=== PATIENT | female | born 1965 | race Caucasian/White ===

== ENCOUNTER 2019-10-30 10:45 | Emergency (ER) | payer OTHER, SELFPAY ==
--- NOTE | 2019-10-30 11:05 | ECG_ITS ---
Measurements Intervals [place] Rate: 78 P: 49 MN: 162 QRS: 28 QRSD: 89 T: 69 QT: 376 QTc: 429 Interpretive Statements SINUS RHYTHM NONSPECIFIC ST & T-WAVE ABNORMALITY- LATERAL LEADS BORDERLINE ECG Electronically Signed On 10-30-2019 11:26:32 CDT by Tio Rutledge D.O.
[2019-10-30 11:24] VITALS: BP 128/60; PULSE 73; RESP 14; TEMP 36.1; O2SAT 100
[2019-10-30 11:24] LABS: Basophils Percent Auto 0.4 % (0.2-1.2); Eosinophils Absolute Auto 0.1 K/mm3 (0-0.3); Eosinophils Percent Auto 1.2 % (0-4.4); Hematocrit 38.8 % (37.0-47.0); Hemoglobin 12.9 g/dL (12.0-15.0); Immature Granulocyte Absolute 0.01 K/mm3 (0.00-0.031); Immature Granulocyte Percent A 0.2 % (0-0.5); Lymphocytes Absolute Auto 1.49 K/mm3 (0.9-3.2); Lymphocytes Percent Auto 29.4 % (18.3-44.2); Mean Corpuscular HGB Conc 33.2 g/dl (32-36); Mean Corpuscular Hemoglobin 31.4 pg (26-34); Mean Corpuscular Volume 94.4 fl (80-100); Mean Platelet Volume 9.9 fl (7.4-10.4); Monocytes Absolute Auto 0.4 K/mm3 (0.1-0.6); Monocytes Percent Auto 8.3 % (2.6-8.5); Neutrophils Absolute Auto 3.1 K/mm3 (1.3-6.7); Neutrophils Percent Auto 60.5 % (45.5-73.1); Platelet Count Result 279 k/mm3 (150-375); Red Blood Count 4.11 M/mm3 (4.2-5.4); Red Cell Distribution Width 13.2 % (11.5-14.5); White Blood Count 5.1 K/mm3 (4.5-10.0)
[2019-10-30 11:28] VITALS: O2SAT 100
[2019-10-30 11:29] VITALS: PULSE 70
[2019-10-30 11:39] LABS: D Dimer 0.27 ug/mL (<0.48)
[2019-10-30 11:40] LABS: Alanine Aminotransferase 16 U/L (4-35); Albumin Level 4.2 g/dL (3.5-5.1); Alkaline Phosphatase 66 U/L (38-126); Aspartate Amino Transferase 22 U/L (14-36); Bilirubin,Total 0.7 mg/dL (0.2-1.3); Blood Urea Nitrogen 13 mg/dL (7-17); Calcium 9.3 mg/dL (8.4-10.2); Carbon Dioxide 25 mmol/L (22-30); Chloride 108 mmol/L (98-107); Estimated CRCL calculation 73 ml/min; Estimated Glomerular Filt Rate > 60; Glucose 118 mg/dL (65-105); Lipase 69 U/L (23-300); Sodium 139 mmol/L (137-145)
[2019-10-30 11:43] LABS: Potassium 3.7 mmol/L (3.4-5.0)
--- NOTE | 2019-10-30 11:44 | ED.CHESTPAIN ---
HPI - Chest Pain General Chief Complaint: Chest Pain Stated Complaint: chest pain for several days Time Seen by Provider: 10/30/19 11:04 Source: patient Mode of arrival: ambulatory Limitations: no limitations History of Present Illness HPI narrative: Patient is a 53-year-old female who presents with midsternal chest pain patient notes that the symptoms have been present for 3 days and constant nature patient denies any vomiting diarrhea but does note the discomfort originates in the abdomen radiates up through the chest patient denies similar occurrence in the past does not take anything for her symptoms and has not been seen for this complaint notes at the beginning of the month she had a normal stress test. Patient has had congestion rhinorrhea and drainage but denies sick contacts. MD complaint: chest pain Related Data Allergies Allergy/AdvReac Type Severity Reaction Status Date / Time amoxicillin [From Augmentin] Allergy Unknown Verified 10/30/19 11:29 clavulanic acid Allergy Unknown Verified 10/30/19 11:29 [From Augmentin] naproxen Allergy Hives Verified 10/30/19 11:29 Review of Systems Review of Systems: All systems reviewed & are unremarkable except as noted in HPI and below Exam Narrative: Exam Narrative: GENERAL: Well-appearing, well-nourished, and in no acute distress. HEAD: Normocephalic, atraumatic. EYES: PERRLA and EOMI. ENT: Nares clear, no rhinorrhea or epistaxis. Mucous membranes moist. CHEST: Clear to auscultation. No respiratory distress. No wheezes rales or rhonchi HEART: Regular rate and rhythm. No murmur heard. Normal peripheral pulses. ABDOMEN: Soft, nontender, nondistended. EXTREMITIES: Normal range of motion. No edema. SKIN: Warm, dry, no rash. NEURO: No focal deficits. Alert and oriented x3. PSYCH: Normal mood and affect. Course Consultations Consultation #1: Spoke with cardiology office who will see the patient in clinic in 1 week Date: 10/30/19 Time: 15:02 Vital Signs Vital signs: Vital Signs Temperature 97.0 F L 10/30/19 11:24 Pulse Rate 73 10/30/19 11:24 Respiratory Rate 14 10/30/19 11:24 Blood Pressure 128/60 10/30/19 11:24 Pulse Oximetry 100 10/30/19 11:24 Temperature 98.0 F 10/30/19 13:41 Pulse Rate 72 10/30/19 13:41 Respiratory Rate 20 10/30/19 13:41 Blood Pressure 117/73 10/30/19 13:41 Pulse Oximetry 100 10/30/19 13:41 MDM - Chest Pain MDM Narrative Medical decision making narrative: Patients EKGs and labs are without significant high risk changes. Cardiac risk factors were reviewed. Patient is felt likely to be low risk for ACS and reasonable for further risk stratification testing as an outpatient. Pain was not sudden or maximal in onset without tearing or ripping. quality. No other signs or symptoms to suggest aortic dissection. A low-risk Wells criteria is noted. PE is felt to be unlikely. No pneumonia or URI symptoms were seen on evaluation today. Patient is felt to be reasonable for continued evaluation as an outpatient. Lab Data Result diagrams: 10/30/19 11:15 10/30/19 11:15 Labs: Lab Results 10/30/19 10/30/19 10/30/19 Range/Units 11:15 11:15 11:15 WBC 5.1 (4.5-10.0) K/mm3 RBC 4.11 L (4.2-5.4) M/mm3 Hgb 12.9 (12.0-15.0) g/dL Hct 38.8 (37.0-47.0) % MCV 94.4 (80-100) fl MCH 31.4 (26-34) pg MCHC 33.2 (32-36) g/dl RDW 13.2 (11.5-14.5) % Plt Count 279 (150-375) k/mm3 MPV 9.9 (7.4-10.4) fl Immature Gran % (Auto) 0.2 (0-0.5) % Neut % (Auto) 60.5 (45.5-73.1) % Lymph % (Auto) 29.4 (18.3-44.2) % [place] % (Auto) 8.3 (2.6-8.5) % Eos % (Auto) 1.2 (0-4.4) % Baso % (Auto) 0.4 (0.2-1.2) % Lymph # (Auto) 1.49 (0.9-3.2) K/mm3 [place] # (Auto) 0.4 (0.1-0.6) K/mm3 Eos # (Auto) 0.1 (0-0.3) K/mm3 Baso # (Auto) 0.0 (0.0-0.1) K/mm3 Abs Immat Gran (auto) 0.01 (0.00-0.031) K/mm3 Absolute Neuts (auto) 3.1 (1.3-6
[2019-10-30 11:56] LABS: Troponin I < 0.012 ng/mL (0.000-0.034)
[2019-10-30] MEDS: ASPIRIN 81 MG CHEWABLE TABLET 324 MG PO (12:03)
[2019-10-30] MEDS: BELLADONNA ALK/PHENOB ELIX 10 ML, MAG HYDROX/ALUMINUM HYD/SIMETH 30 ML, LIDOCAINE HCL 2... PO (12:03)
[2019-10-30 12:04] VITALS: BP 125/61; PULSE 81; RESP 19; O2SAT 100
[2019-10-30 13:41] VITALS: BP 117/73; PULSE 72; RESP 20; TEMP 36.7; O2SAT 100
[2019-10-30 14:43] LABS: Troponin I < 0.012 ng/mL (0.000-0.034)
[2019-10-30 15:01] LABS: Add Urine Microscopic? YES; Appearance Urine Clear (Clear); Bilirubin Urine Negative (Negative); Blood Urine Negative (Negative); Color Urine Yellow (Yellow); Glucose Urine UA Negative (Negative); Ketones Urine Negative (Negative); Leukocyte Esterase Ur Negative LEU/UL (Negative); Mucus Urine Rare /lpf; Nitrate Urine Negative (Negative); Protein Urine Negative (Negative); RBC Urine 0-2 /hpf (0-2); Specific Grav Ur 1.017 (1.001-1.035); Squamous Epithelial Cell Urine Occasional /hpf (Few); Urobilinogen Urine Negative mg/dL (<2.0); WBC Urine 0-3 /hpf
[2019-10-30 15:22] VITALS: BP 120/70; PULSE 77; RESP 14; O2SAT 100
== END 2019-10-30 15:23 | disposition home or self-care (01) ==
PROVIDERS: Emergency Medicine Emergency Medical Services; Emergency Provider Family Medicine
DX: R07.9 Chest pain, unspecified (principal); R94.31 Abnormal electrocardiogram [ECG] [EKG]
CPT/HCPCS: 36415; 80053; 81001; 83690; 84484; 85025; 85380; 93005; 96365; 99284; A9270; J0131

== ENCOUNTER 2020-08-25 16:32 | Outpatient (CLI) | payer OTHER, SELFPAY ==
--- NOTE | ~2020-08-25 | XR_ITS ---
XR abdomen/kub 1V DATE: 08/25/2020 17:11 INDICATION: Postprandial abdominal bloating for one to 2 months TECHNIQUE: 2 supine AP views COMPARISON: None FINDINGS: Probable calcified pulmonary granuloma overlying the right lung base and upper abdomen. Multiple calcifications overlying the renal silhouettes, at least 2 on the right and at least one on the left, consistent with bilateral nephrolithiasis, the largest situated over the mid left kidney, m easuring up to approximately 6 mm. The other calcifications are approximately 2 mm. No apparent calci fication overlying the expected position of the ureters other than multiple probable bilateral calcif ied pelvic phleboliths. Associated as are intact. No visceromegaly is evident. There is moderately prominent amount of fecal material throughout the colon but no apparent bowel obs truction. The lung bases appear clear. Heart size appears normal. Mild dextroscoliosis of the thoracolumbar spine. IMPRESSION: Probable bilateral calcified kidney stones Probable calcified pulmonary granuloma, right lower lobe Moderately prominent amount of fecal material in the colon; no bowel obstruction Reviewed, dictated and finalized at [facility]. Reviewed, dictated and finalized at [facility]. [facility] IMPRESSION: Probable bilateral calcified kidney stones Probable calcified pulmonary granuloma, right lower lobe Moderately prominent amount of fecal material in the colon; no bowel obstructio n
== END 2020-08-25 16:33 | disposition home or self-care (01) ==
PROVIDERS: PCP Physician Assistant; Visit Provider Physician Assistant
DX: R14.0 Abdominal distension (gaseous) (principal); N20.0 Calculus of kidney; N28.89 Other specified disorders of kidney and ureter
CPT/HCPCS: 74018

== ENCOUNTER 2020-10-01 09:30 | Outpatient (CLI) | payer OTHER, SELFPAY ==
--- NOTE | ~2020-10-01 | CT_ITS ---
EXAMINATION: CT abdomen pelvis wo con DATE: 10/01/2020 09:57 INDICATION: Abdominal bloating TECHNIQUE: Computed tomography (CT) of the abdomen and pelvis was performed without intravenous contr ast. The dose-length product (DLP) was 227.99 mGy-cm. Automated exposure control and iterative recons truction technique were employed. COMPARISON: None FINDINGS: There is a calcified granuloma of the right lower lobe. The heart size is normal. The liver , spleen, pancreas, gallbladder, and adrenal glands are normal. There are two nonobstructing 3 mm sto ming of the right kidney. Three nonobstructing stones of the left kidney measure up to 8 mm. No stones are identified in the ureters or bladder. There is no hydronephrosis or hydroureter. A mildly enlarg ed left inguinal lymph node measures up to 1.3 cm. There is no free intraperitoneal gas or evidence o f bowel obstruction. The appendix is normal. A moderate volume of colonic stool is present. There is a tiny fat-containing umbilical hernia. IMPRESSION: 1. Constipation. 2. Bilateral nonobstructing nephrolithiasis. 3. Mildly enlarged left inguinal lymph node of unclear significance, possibly reactive. Recommend cli nical correlation. Reviewed, dictated and finalized at [facility]. IMPRESSION: 1. Constipation. 2. Bilateral nonobstructing nephrolithiasis. 3. Mildly enlarged left inguinal lymph node of unclear significance, possibly r eactive. Recommend clinical correlation.
== END 2020-10-01 09:31 | disposition home or self-care (01) ==
LOC: ANHIMG 09:32
PROVIDERS: PCP Physician Assistant; Visit Provider Physician Assistant
DX: R14.0 Abdominal distension (gaseous) (principal); K59.00 Constipation, unspecified; N20.0 Calculus of kidney; R59.1 Generalized enlarged lymph nodes
CPT/HCPCS: 74176

== ENCOUNTER 2020-11-08 08:56 | Outpatient (CLI) | payer OTHER, SELFPAY ==
--- NOTE | ~2020-11-08 | MM_ITS ---
EXAMINATION: MM screening [place] BI w ned HISTORY: Screening TECHNIQUE: Craniocaudal and mediolateral oblique 3-D tomosynthesis images were obtained and synthetic 2-D images were generated. CAD analysis was submitted and interpreted. COMPARISON: No prior mammogram is available for comparison at this institution. BREAST PARENCHYMAL COMPOSITION: The breasts are heterogenously dense, which may obscure small masses FINDINGS: There is no evidence of suspicious mass, calcification, or architectural distortion to sugg est malignancy in either breast. There has been no suspicious interval change. IMPRESSION: 1. No mammographic evidence of malignancy. 2. Recommend routine screening mammography in one year. BI-RADS Category 1: Negative Reviewed, dictated and finalized at [facility].
== END 2020-11-08 08:57 | disposition home or self-care (01) ==
PROVIDERS: PCP Physician Assistant; Visit Provider Obstetrics & Gynecology
DX: Z12.31 Encounter for screening mammogram for malignant neoplasm of breast (principal)
CPT/HCPCS: 77063; 77067

== ENCOUNTER 2021-10-11 17:43 | Emergency (ER) | payer OTHER, SELFPAY ==
--- NOTE | ~2021-10-11 | CT_ITS ---
EXAMINATION: CT cervical spine wo con DATE: 10/11/2021 18:37 INDICATION: On and off Central neck pain for 8 months with numbness of the extremities. TECHNIQUE: Computed tomography (CT) of the cervical spine was performed without intravenous contrast. Automated exposure control and iterative reconstruction technique were employed. The dose-length pro duct was 140.84 mGy-cm. COMPARISON: None FINDINGS: Counting reference: Craniocervical junction. There are 7 cervical type vertebral bodies. Anatomic Variants: None. Alignment: Alignment is anatomic. Craniocervical junction: Craniocervical junction is normal. Osseous structures/fracture: No evidence of a lytic or blastic process in the visualized spine. N o evidence of acute or chronic fracture. Cervical soft tissues: The paraspinal soft tissues planes are maintained. Mild biapical pleural pa renchymal thickening. Small right apical pleural bleb. Degenerative changes: Degenerative disc disease in the lower cervical spine, mild at C4-5 and moderat e at C5-6. No severe central canal or neural foraminal narrowing. IMPRESSION: No acute fracture or traumatic malalignment in the cervical spine. Reviewed, dictated and finalized at [facility].
--- NOTE | ~2021-10-11 | CT_ITS ---
EXAMINATION: CT lumbar spine wo con DATE: 10/11/2021 18:38 INDICATION: On and off Central low back pain for 8 months, with numbness of the extremities. TECHNIQUE: Computed tomography (CT) of the lumbar spine was performed without intravenous contrast. A utomated exposure control and iterative reconstruction technique were employed. The dose-length produ ct was 140.84 mGy-cm. COMPARISON: None FINDINGS: There are 5 nonrib-bearing lumbar-type vertebral bodies. Incidental note of moderate degenerative dis c disease at T11-12. Vertebral body heights are maintained. Normal disc spaces. No significant facet hypertrophy. No severe central canal or neural foraminal narrowing. No fracture or dislocation. No ly tic or blastic lesions. Right lower lobe granuloma. Left nephrolithiasis. IMPRESSION: No acute fracture or traumatic malalignment in the lumbar spine. Reviewed, dictated and finalized at [facility].
[2021-10-11 17:58] VITALS: BP 137/95; PULSE 81; RESP 20; TEMP 36.9; O2SAT 97
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
--- NOTE | 2021-10-11 19:29 | PC.NURSE ---
Pt and spouse refusing to wait in room. Will only wait in lobby
== END 2021-10-11 19:50 | disposition home or self-care (01) ==
PROVIDERS: Emergency Provider Internal Medicine Critical Care Medicine; PCP Physician Assistant
DX: M54.2 Cervicalgia (principal); M54.50 Low back pain, unspecified
CPT/HCPCS: 72125; 72131; 99284

== ENCOUNTER 2022-05-07 13:49 | Outpatient (CLI) | payer OTHER, SELFPAY ==
--- NOTE | 2022-05-07 13:59 | ECG_ITS ---
Measurements Intervals [place] Rate: 57 P: 81 NE: 177 QRS: 86 QRSD: 88 T: 76 QT: 421 QTc: 412 Interpretive Statements SINUS BRADYCARDIA DELAYED PRECORDIAL R/S TRANSITION MINIMAL Q WAVES- INFF/LAT LEADS BORDERLINE ECG COMPARED TO ECG 10/30/2019 10:53:36 SINUS BRADYCARDIA NOW PRESENT Electronically Signed On 05-08-2022 6:43:13 CDT by Tio Rutledge D.O.
== END 2022-05-07 13:50 | disposition home or self-care (01) ==
LOC: CHSCARD 13:54
PROVIDERS: PCP Physician Assistant; Visit Provider Internal Medicine Cardiovascular Disease
DX: R07.9 Chest pain, unspecified (principal)
CPT/HCPCS: 93005

== ENCOUNTER 2022-06-11 10:54 | Outpatient (CLI) | payer OTHER, SELFPAY ==
--- NOTE | 2022-06-11 10:59 | EST_ITS ---
Patient Info Name: Tatiana Baron Age: 56 years : 1965 Gender: Female Ht: 65 in Wt: 125 lbs BSA: 1.61 m2 Exam Date: 06/11/2022 12:43 PM Exam Location: [facility] Patient Status: Outpatient Admit Date: 06/11/2022 Staff Ordering Physician: Tio Rutledge DO Attending Provider: Tio Rutledge DO Exam Type: CA stress test treadmill w NM Summary 1. 1. Negative Marino exercise stress test for ischemic ST changes by ECG criteria. 2. 2. Reduced functional capacity, achieving 8 METs of workload. 3. 3. Appropriate HR response to exercise. 4. 4. Appropriate HR recovery at 1 minute post exercise. 5. 5. Nuclear scan to follow and will be reported separately. Please correlate with it. 6. 6. Patient informed of the above results. Protocol: Marino Stress ECG Details Stage: REST Duration (min): 3 min : 5 sec Speed (mph): 0.0 Grade (%): 0 HR (bpm): 83 SBP (mmHg): 110 DBP (mmHg): 63 METS: --- Stage: REST Duration (min): 3 min : 22 sec Speed (mph): 0.0 Grade (%): 0 HR (bpm): 83 SBP (mmHg): 110 DBP (mmHg): 63 METS: --- Stage: REST Duration (min): 8 min : 28 sec Speed (mph): 0.0 Grade (%): 0 HR (bpm): 87 SBP (mmHg): 110 DBP (mmHg): 63 METS: --- Stage: STAGE 1 Duration (min): 1 min : 0 sec Speed (mph): 1.7 Grade (%): 10 HR (bpm): 95 SBP (mmHg): 110 DBP (mmHg): 63 METS: --- Stage: STAGE 1 Duration (min): 2 min : 0 sec Speed (mph): 1.7 Grade (%): 10 HR (bpm): 103 SBP (mmHg): 110 DBP (mmHg): 63 METS: --- Stage: STAGE 1 Duration (min): 3 min : 0 sec Speed (mph): 1.7 Grade (%): 10 HR (bpm): 103 SBP (mmHg): 151 DBP (mmHg): 76 METS: --- Stage: STAGE 2 Duration (min): 1 min : 0 sec Speed (mph): 2.5 Grade (%): 12 HR (bpm): 118 SBP (mmHg): 151 DBP (mmHg): 76 METS: --- Stage: STAGE 2 Duration (min): 2 min : 0 sec Speed (mph): 2.5 Grade (%): 12 HR (bpm): 127 SBP (mmHg): 151 DBP (mmHg): 76 METS: --- Stage: STAGE 2 Duration (min): 3 min : 0 sec Speed (mph): 2.5 Grade (%): 12 HR (bpm): 137 SBP (mmHg): 190 DBP (mmHg): 88 METS: --- Stage: STAGE 3 Duration (min): 0 min : 30 sec Speed (mph): 3.4 Grade (%): 14 HR (bpm): 137 SBP (mmHg): 190 DBP (mmHg): 88 METS: --- Stage: RECOVERY Duration (min): 0 min : 29 sec Speed (mph): 0.0 Grade (%): 0 HR (bpm): 132 SBP (mmHg): 190 DBP (mmHg): 88 METS: --- Stage: RECOVERY Duration (min): 1 min : 29 sec Speed (mph): 0.0 Grade (%): 0 HR (bpm): 113 SBP (mmHg): 190 DBP (mmHg): 88 METS: --- Stage: RECOVERY Duration (min): 2 min : 29 sec Speed (mph): 0.0 Grade (%): 0 HR (bpm): 102 SBP (mmHg): 134 DBP (mmHg): 80 METS: --- Stage: [place]
--- NOTE | 2022-06-11 16:33 | WPDCARIOSTRE ---
Nuclear Stress Test INDICATIONS Indications: Chest pain PROCEDURE Procedure Performed: Myocardial Perf Spect-Multi Procedure: Patient underwent a standard Marino exercise tress test and immediately was injected with 30 mCi of cardiolyte. Multiple tomographic images were obtained. These are of good quality. There is evidence of small size, mild intensity apical perfusion defect noted during stress imaging. A separate resting images were obtained after patient was injected with 10.3 mCi of cardiolyte. Multiple tomographic images were obtained. These are of good quality. There is evidence of small size, mild intensity apical perfusion defect noted during rest imaging. CONCLUSION Conclusion: 1. Myocardial perfusion imaging demonstrating a fixed small size, mild intensity apical perfusion defect suggestive of artifact. 2. No evidence of reversible ischemia. 3. Left ventriculogram demonstrates normal measured ejection fraction of 57% with no wall motion abnormalities. 4. TID score is normal at 0.93.
== END 2022-06-11 10:55 | disposition home or self-care (01) ==
LOC: CHSIMG 10:55
PROVIDERS: PCP Nurse Practitioner; Visit Provider Internal Medicine Cardiovascular Disease
DX: R07.9 Chest pain, unspecified (principal)
CPT/HCPCS: 78452; 93017; A9502

== ENCOUNTER 2023-04-30 14:41 | Outpatient (CLI) | payer OTHER, SELFPAY ==
--- NOTE | ~2023-04-30 | MM_ITS ---
EXAMINATION: MM screening [place] BI w ned HISTORY: Screening mammogram TECHNIQUE: Craniocaudal and mediolateral oblique 3-D tomosynthesis images were obtained and synthetic 2-D images were generated. CAD analysis was submitted and interpreted. COMPARISON: 11/2020 bilateral screening mammogram BREAST PARENCHYMAL COMPOSITION: 11/2020 bilateral screening mammogram FINDINGS: There is an approximately 7 mm mass density in the posterior mid to lower outer right breas t. Diagnostic right mammogram and right breast ultrasound examination are recommended. There are some microcalcifications in upper outer quadrant of the left breast; magnification views ar e recommended for better definition. IMPRESSION: 1. Approximately 7 cm right breast mass and upper outer quadrant left breast microcalcifications 2. Diagnostic right mammogram and right breast ultrasound examination and diagnostic left mammogram w ith magnification views are recommended BI-RADS Category 0: Incomplete: Needs additional imaging evaluation. Reviewed, dictated and finalized at location [facility]. IMPRESSION: 1. Approximately 7 cm right breast mass and upper outer quadrant left breast mi crocalcifications 2. Diagnostic right mammogram and right breast ultrasound examination and diagn ostic left mammogram with magnification views are recommended BI-RADS Category 0: Incomplete: Needs additional imaging evaluation.
== END 2023-04-30 14:42 | disposition home or self-care (01) ==
LOC: CHSIMG 14:42
PROVIDERS: PCP Nurse Practitioner; Visit Provider Nurse Practitioner
DX: Z12.31 Encounter for screening mammogram for malignant neoplasm of breast (principal); R92.8 Other abnormal and inconclusive findings on diagnostic imaging of breast
CPT/HCPCS: 77063; 77067

== ENCOUNTER 2023-05-28 09:07 | Outpatient (CLI) | payer OTHER, SELFPAY ==
--- NOTE | ~2023-05-28 | MMUS_ITS ---
EXAMINATION: MM diagnostic [place] BI w ned, US breast BI complete HISTORY: Approximately 7 mm mass in posterior mid to lower outer right breast and left upper outer qu adrant microcalcifications reported on 04/26/2023 bilateral screening mammogram TECHNIQUE: Additional 3-D tomosynthesis images of both breasts were performed and synthetic 2-D image s were generated. Magnification views of left breast. CAD analysis was submitted and interpreted. Hig h resolution complete bilateral breast ultrasound examination including all 4 quadrants and subareola r area of each breast was performed. COMPARISON: 04/26/2023 bilateral screening mammogram FINDINGS: MAMMOGRAPHIC FINDINGS: There are bilateral benign-appearing microcalcifications. No malignant calcification is evident. Approximately 6-7 mm circumscribed opacity is again suggested in the posterior lower outer right ed[address] st (right MLO Tomosynthesis image /37). The heterogeneously dense stroma of both breasts may obscure other masses. Bilateral complete breast ultrasound examination was performed. ULTRASOUND: No suspicious mass or shadowing of either breast is detected. Right breast: 12:00 2 cm from nipple: 4 x 2.9 mm cyst, benign 6:00 4 cm from nipple: Oval parallel circumscribed 5.4 x 5 x 3.2 mm sonolucency with through transmis malinda posterior enhancement, consistent with simple cyst 7:00 5 cm from nipple: Parallel circumscribed minimally septated 5.6 x 6.9 x 4.6 mm sonolucency with through transmission posterior enhancement, consistent with benign cyst Subareolar: Oval parallel circumscribed hypoechoic complicated cyst measuring 4 x 3 mm, with through transmission, no internal vascularity, benign in appearance Subareolar: 3.6 x 4.7 x 1.9 mm parallel oval circumscribed sonolucency consistent with benign cyst Left breast: 5:00 7 cm from nipple: 4.4 x 2.8 mm parallel circumscribed sonolucency consistent with simple cyst IMPRESSION: 1. Benign mammographic and sonographic findings of both breasts 2. Routine annual mammographic screening is recommended. BI-RADS Category 2: Benign finding(s). Reviewed, dictated and finalized at location [facility]. [employer] IMPRESSION: 1. Benign mammographic and sonographic findings of both breasts 2. Routine annual mammographic screening is recommended. BI-RADS Category 2: Benign finding(s).
== END 2023-05-28 09:08 | disposition home or self-care (01) ==
PROVIDERS: PCP Nurse Practitioner; Visit Provider Nurse Practitioner
DX: N63.15 Unspecified lump in the right breast, overlapping quadrants (principal)
CPT/HCPCS: 76641; 77062; 77066; G0279

== ENCOUNTER 2023-09-26 10:32 | Outpatient (CLI) | payer OTHER, SELFPAY ==
--- NOTE | ~2023-09-26 | CT_ITS ---
Non-contrast CT scan of the Abdomen and Pelvis Clinical indication: Abdominal pain Technique: 2.5 mm axial scans were obtained through the abdomen and pelvis without intravenous or or al contrast. Dose reduction technique was used on this scan by utilizing automated exposure control a nd iterative reconstruction technique. The dose-length product (DLP) was 190.84 mGy-cm. Findings: Images through the lung bases reveal no abnormalities. Nonobstructing bilateral renal calculi, are essentially stable from prior exam. No hydronephrosis.. The liver, spleen, pancreas, gallbladder, and right adrenal gland appear normal. Probable 1.3 cm left adrenal nodule, unchanged. There is no aortic aneurysm. There is no evidence of bowel obstruction. Images through the pelvis were performed. There is no evidence of ascites or lymphadenopathy. Probabl e partially exophytic uterine fibroid is unchanged. No other adnexal mass seen. Impression: Bilateral nonobstructing nephrolithiasis, similar to prior exam. Stable left adrenal nodule, therefore likely benign. Reviewed, dictated and finalized at [facility]. Impression: Bilateral nonobstructing nephrolithiasis, similar to prior exam. Stable left adrenal nodule, therefore likely benign.
--- NOTE | ~2023-09-26 | CT_ITS ---
CT Scan of the Chest without Contrast: Clinical Indication: Lung cancer screening, personal history of nicotine dependence Technique: Contiguous sections were acquired throughout the chest without intravenous contrast. Dose reduction technique was used on this scan by utilizing automated exposure control and iterative recon struction technique. The dose-length product (DLP) was 56.66 mGy-cm. Findings: There is no evidence of any significant mediastinal, hilar or axillary lymphadenopathy. The mediastin al soft tissues appear normal. There is no evidence of pleural or pericardial effusion. The lungs are clear, aside from calcified granulomas. Images through the upper abdomen reveal no abnormalities. Impression: Lung RADS 1: Negative. 12 month follow-up screening CT advised. Reviewed, dictated and finalized at location . Impression: Lung RADS 1: Negative. 12 month follow-up screening CT advised.
== END 2023-09-26 10:33 | disposition home or self-care (01) ==
LOC: CHSIMG 10:33
PROVIDERS: PCP Nurse Practitioner; Visit Provider Nurse Practitioner
DX: Z12.2 Encounter for screening for malignant neoplasm of respiratory organs (principal); R10.9 Unspecified abdominal pain; Z87.891 Personal history of nicotine dependence; N20.0 Calculus of kidney; E27.8 Other specified disorders of adrenal gland
CPT/HCPCS: 71271; 74176

== ENCOUNTER 2023-12-16 11:51 | Emergency (ER) | payer OTHER, SELFPAY ==
--- NOTE | ~2023-12-16 | US_ITS ---
EXAMINATION: US venous doppler LE RT DATE: 12/16/2023 13:00 INDICATION: Right lower limb pain TECHNIQUE: Grayscale ultrasound images without and with compression and Doppler ultrasound images of the right lower extremity veins were obtained. COMPARISON: None. FINDINGS: The visualized portions of right common femoral vein, profunda (deep) femoral vein, femoral vein, pop liteal vein, posterior tibial veins, peroneal veins, gastrocnemius vein and greater saphenous vein ou tflow are patent. IMPRESSION: 1. No deep venous thrombosis in the right lower limb. Reviewed, dictated and finalized at location A.
[2023-12-16 11:51] VITALS: BP 144/71; PULSE 78; RESP 18; TEMP 36.4; O2SAT 99
--- NOTE | 2023-12-16 12:05 | ED.GENADULT ---
HPI - General Adult General Chief complaint: Extremity Problem,Nontraumatic Stated complaint: rt calf pain Time Seen by Provider: 12/16/23 12:05 History of chief complaint: Inform it is patient. Patient reports about a month ago she slipped on a boat dock and bruised her right calf. There is a bit of a knot in the calf area, she was concerned about a blood clot so she contacted primary care and was told to come to the ER to get it checked. She denies any other injury. She did not hit her head. She denies any neck or back pain. She denies any chest pain or shortness of breath. Patient denies any prior issues with DVT or PE. Problem located right calf. Started about a month ago. It is like a contusion, question the possibility of DVT. Caused by a fall. Associated symptoms: No reported cough or fever. Past medical history: High cholesterol, chronic hip pain secondary to degenerative changes past surgical history: Uterine ablation, , tubal ligation, wrist social history: Nonsmoker. Occasional alcohol. Reports uses marijuana daily but uses no other street drugs. Family history: Positive for heart disease, cancer, hypertension. History of Present Illness HPI narrative: As per previously discussed MSE. Related Data Home Medications Medication Instructions Recorded Confirmed estradiol 1 mg tablet 1 mg PO DAILY 10/11/21 12/16/23 gabapentin 300 mg capsule 300 mg PO TID 10/11/21 12/16/23 progesterone micronized 100 mg 100 mg PO DAILY 10/11/21 12/16/23 capsule citalopram 40 mg tablet 40 mg PO DAILY 12/16/23 12/16/23 Allergies Allergy/AdvReac Type Severity Reaction Status Date / Time amoxicillin [From Augmentin] Allergy Hives Verified 12/16/23 12:26 azithromycin [From Zithromax] Allergy Hives Verified 12/16/23 12:26 clavulanic acid Allergy Hives Verified 12/16/23 12:26 [From Augmentin] naproxen Allergy Hives Verified 12/16/23 12:26 Review of Systems Review of Systems: REVIEW OF SYSTEMS- constitutional: No fevers, no chills, no sweats eye: No recent visual problems ENT: No ear pain, no nasal congestion, no sore throat respiratory: No shortness of breath, no cough cardiovascular: No chest pain, no palpitations, no syncope gastrointestinal: No nausea, no vomiting, no diarrhea haroldo/lymph: No bruising tendency, no swollen lymph glands endocrine: No excessive thirst, no excessive hunger muscle skeletal: No back pain, no neck pain, no joint pain, no muscle pain, no decreased range of motion, Complains of not to the right mid calf as discussed in history of chief complaint. integumentary: No rash, no pruritus, no abrasions neurologic: Alert and oriented x4 psychiatric: No anxiety, no depression PMFSH Social History Social History (Updated 05/07/22 @ 13:24 by Latosha Mars, [facility]) Social History: smokes marijuana on a regular basis Smoking status: Former smoker Substance use: current Substance use type: marijuana Exam Narrative: Physical exam: General- alert and oriented, well nourished, no acute distress eye: PERRL, EOMI, normal conjunctiva HENT: Normocephalic, clear tympanic membranes, normal hearing, normal oral mucosa, no scleral icterus, no sinus tenderness neck: Supple, nontender, no carotid bruits, no JVD, no lymphadenopathy lungs: Clear to auscultation, respirations are nonlabored heart: Normal rate, regular rhythm, no murmur, no gallop, no edema abdomen: Soft, nontender, nondistended, normal bowel sounds, no masses muscle skeletal: Normal range of motion and strength, no tenderness, Patient has a small knot in the right mid calf approximately 1 cm across/there is no redness/ pointing/indication of abscess Lymphangitis. The right and left calf have about the same amount of firmness on palpation. neurovascular status is intact in both feet. skin: Skin is warm/ dry/ pink. no rashes, no lesions Neurologic: Awake,
[2023-12-16 13:19] LABS: Basophils Absolute Auto 0.04 K/mm3 (0.00-0.10); Basophils Percent Auto 0.7 % (0.0-1.0); Eosinophils Absolute Auto 0.11 K/mm3 (0.02-0.50); Eosinophils Percent Auto 1.9 % (1.0-6.0); Hematocrit 39.2 % (35.0-49.0); Hemoglobin 12.9 g/dL (12.0-15.0); Immature Granulocyte Absolute 0.02 K/mm3 (0.00-0.00); Immature Granulocyte Percent A 0.3 % (0.0-0.0); Lymphocytes Absolute Auto 2.58 K/mm3 (1.10-4.50); Lymphocytes Percent Auto 44.8 % (18.0-42.0); Mean Corpuscular HGB Conc 32.9 g/dL (32-36); Mean Corpuscular Volume 97.3 fL (78.0-102.0); Mean Platelet Volume 9.4 fl (9.2-11.8); Monocytes Percent Auto 8.7 % (2.0-11.0); Neutrophils Absolute Auto 2.51 K/mm3 (1.70-7.20); Neutrophils Percent Auto 43.6 % (50.0-70.0); Platelet Count Result 215 K/mm3 (150-420); Red Blood Count 4.03 M/mm3 (4.20-5.40); Red Cell Distribution Width 12.5 % (11.6-14.4); White Blood Count 5.8 K/mm3 (4.8-10.8)
[2023-12-16 13:32] LABS: D Dimer 0.32 mg/L (0.19-0.50)
[2023-12-16 13:33] LABS: Alanine Aminotransferase 27 U/L (14-59); Albumin Level 3.5 g/dL (3.4-5.0); Alkaline Phosphatase 59 U/L (46-116); Anion Gap 6 mmol/L (4-12); Aspartate Amino Transferase 17 U/L (15-37); Bilirubin,Total 0.8 mg/dL (0.00-1.00); Blood Urea Nitrogen 13 mg/dL (7-18); Calcium 9.1 mg/dL (8.5-10.1); Carbon Dioxide 32 mmol/L (21-32); Chloride 102 mmol/L (98-108); Estimated CRCL calculation 56 ml/min; Estimated Glomerular Filt Rate > 60; Glucose 105 mg/dL (70-99); Osmolality Calculated 290 mOsm/kg (285-295); Potassium 4.8 mmol/L (3.5-5.1); Sodium 140 mmol/L (136-145); Total Protein 6.8 g/dL (6.4-8.2)
--- NOTE | 2023-12-16 13:44 | PC.NURSE ---
PT IS SITTING ON STRETCHER WITH DAUGHTER AT BEDSIDE. NAD NOTED. PT DENIES ANY NEEDS OR COMPLAINTS, SODA WAS PROVIDED. PT IS AWAITING RESULTS AT THIS TIME. WILL CONTINUE TO MONITOR.
[2023-12-16 14:25] VITALS: BP 132/70; PULSE 70; RESP 16; O2SAT 98
== END 2023-12-16 14:25 | disposition home or self-care (01) ==
PROVIDERS: Emergency Provider Emergency Medicine; PCP Physician Assistant
DX: S80.11XA Contusion of right lower leg, initial encounter (principal); Z79.899 Other long term (current) drug therapy; W01.0XXA Fall on same level from slipping, tripping and stumbling without subsequent striking against object, initial encounter; Y92.89 Other specified places as the place of occurrence of the external cause
CPT/HCPCS: 36415; 80053; 85025; 85380; 93971; 99284

== ENCOUNTER 2024-02-11 08:50 | Outpatient (RCR) | payer OTHER, SELFPAY ==
--- NOTE | 2024-02-11 10:03 | OPREHPOC ---
Outpatient Therapy Plan of Care This is a Multidisciplinary Plan of Care that may contain components documented by all disciplines (PT, OT, and ST.) PT Problem 1 PT Problem #1 Knowledge Deficit PT Goal 1 Goal The patient will be independent in a home exercise program. Target Visit 4 PT Problem 2 PT Problem #2 Pain PT Goal 1 Goal The patient will report no greater than 3/10 right knee pain with walking and stair negotiation. Target Visit 8 PT Problem 3 PT Problem #3 Impaired Range of Motion PT Goal 1 Goal The patient will demonstrate right knee AROM of 0- 130 degrees without pain elicited to perform squatting and stair negotiation without pain. Target Visit 8 PT Problem 4 PT Problem #4 Impaired Functional Mobil PT Goal 1 Goal 1. The patient will be able to ascend/descend a flight of stairs reciprocally with no right knee pain. 2. The patient will demonstrate 30% or less self perceived disability per the LEFS. Target Visit 8
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
--- NOTE | 2024-03-11 08:56 | PCPTNOTE ---
Patient called & cancelled scheduled appointment 03/10/24 and 03/11/24 due to being sick. -Mavis Julian, PT
== END 2024-05-11 23:59 | disposition home or self-care (01) ==
LOC: CHSPT 08:50
PROVIDERS: Visit Provider Nurse Practitioner Family
DX: S80.01XD Contusion of right knee, subsequent encounter (principal); M25.561 Pain in right knee
CPT/HCPCS: 97014; 97110; 97112; 97140; 97161; 97530; G0283

== ENCOUNTER 2024-04-06 15:00 | Emergency (ER) | payer OTHER, SELFPAY ==
--- NOTE | ~2024-04-06 | XR_ITS ---
XR shoulder LT min 2V Ordering provider: Ananda Snyder DO History: . pain after fall . Comparison: None. FINDINGS: BONES: No acute fracture or dislocation. JOINT SPACES: The acromioclavicular joint is normal. The glenohumeral joint is normal. SOFT TISSUES: Normal. IMPRESSION: No acute osseous abnormality left shoulder. Reviewed, dictated and finalized at location A.
[2024-04-06 15:00] VITALS: BP 101/64; PULSE 80; RESP 18; TEMP 36.9; O2SAT 99
--- NOTE | 2024-04-06 15:11 | ED.GENADULT ---
HPI - General Adult General Chief complaint: Extremity Injury, Upper Stated complaint: left shoulder and arm pain Time Seen by Provider: 04/06/24 15:06 History of Present Illness HPI narrative: Tatiana is a 58F with a PMH of aortic stenosis, HLD, mitral valve prolapse that presented to the ED with pain in her left shoulder. She fell on it while playing soccer with her grandson yesterday. Pain is worse with internal rotation and reaching above her head. No other injuries or concerns. Related Data Home Medications Medication Instructions Recorded Confirmed estradiol 1 mg tablet 1 mg PO DAILY 10/11/21 04/06/24 gabapentin 300 mg capsule 600 mg PO QID 10/11/21 04/06/24 progesterone micronized 100 mg 100 mg PO DAILY 10/11/21 04/06/24 capsule citalopram 40 mg tablet 40 mg PO DAILY 12/16/23 04/06/24 Allergies Allergy/AdvReac Type Severity Reaction Status Date / Time amoxicillin [From Augmentin] Allergy Hives Verified 04/06/24 15:07 azithromycin [From Zithromax] Allergy Hives Verified 04/06/24 15:07 clavulanic acid Allergy Hives Verified 04/06/24 15:07 [From Augmentin] naproxen Allergy Hives Verified 04/06/24 15:07 Review of Systems Review of Systems: All systems reviewed & are unremarkable except as noted in HPI and below PMFSH Social History Social History Social History: smokes marijuana on a regular basis Smoking status: Former smoker Substance use: current Substance use type: marijuana Exam Const: General: cooperative, healthy appearing, comfortable, no acute distress, well developed, alert, awake and Physically active Orientation/consciousness: oriented to person, oriented to place and oriented to time HENMT: Head: normal to inspection, normocephalic and atraumatic Ears: hearing grossly normal bilaterally and external ears normal Face/Nose/Sinus: Normal external nose present Eyes: General: appearance normal, both eyes and all related structures Periorbital: periorbital findings normal Sclera: sclerae normal Pupils: Equal, round and reactive pupils present Neck: Neck: normal visual inspection Chest: Chest palpation & inspection: normal inspection of the chest Resp: Effort & Inspection: normal respiratory effort, able to speak in complete sentences and no respiratory distress Cardio: Jugular venous distension: no JVD Skin: General skin exam: normal color and no rashes or lesions noted Neuro: General: oriented to person, oriented to place and oriented to time Cranial nerves: Yes Equal, round and reactive pupils present Extrem: General: normal to inspection Discharge Plan Discharge Clinical Impression: Acute pain of left shoulder Patient Disposition: Home, Self-Care Condition: Stable Instructions: Shoulder Pain (ED) Prescriptions: New tramadol 50 mg tablet 50 mg PO Q6H PRN (Reason: pain) Qty: 10 0RF No Action estradiol 1 mg tablet 1 mg PO DAILY gabapentin 300 mg capsule 600 mg PO QID progesterone micronized 100 mg capsule 100 mg PO DAILY citalopram 40 mg tablet 40 mg PO DAILY Follow-up/Referrals: Stephani,SANTI Fuller [Primary Care Provider] -
== END 2024-04-06 15:55 | disposition home or self-care (01) ==
PROVIDERS: Emergency Provider Family Medicine; PCP Nurse Practitioner Family
DX: M25.512 Pain in left shoulder (principal); E78.5 Hyperlipidemia, unspecified; Z79.899 Other long term (current) drug therapy; W18.30XA Fall on same level, unspecified, initial encounter; Y93.66 Activity, soccer
CPT/HCPCS: 73030; 99283

== ENCOUNTER 2024-05-27 08:39 | Outpatient (RCR) | payer OTHER, SELFPAY ==
--- NOTE | 2024-05-27 09:10 | OPREHPOC ---
Outpatient Therapy Plan of Care This is a Multidisciplinary Plan of Care that may contain components documented by all disciplines (PT, OT, and ST.) PT Problem 1 PT Problem #1 Knowledge Deficit PT Goal 1 Goal / Goal Update The patient will be independent in a home exercise program. Target Visit 4 Progress Met PT Problem 2 PT Problem #2 Pain PT Goal 1 Goal / Goal Update The patient will report no greater than 3/10 right knee pain with walking and stair negotiation. Target Visit 8 Progress Not Met PT Problem 3 PT Problem #3 Impaired Range of Motion PT Goal 1 Goal / Goal Update The patient will demonstrate right knee AROM of 0- 130 degrees without pain elicited to perform squatting and stair negotiation without pain. Target Visit 8 Progress Met PT Problem 4 PT Problem #4 Impaired Functional Mobil PT Goal 1 Goal / Goal Update 1. The patient will be able to ascend/descend a flight of stairs reciprocally with no right knee pain. met 2. The patient will demonstrate 30% or less self perceived disability per the LEFS. not met Target Visit 8 Progress Partially Met
--- NOTE | 2024-05-27 09:10 | PTOPDC ---
Assessment and note entered by JT File, PT Evaluation Information Assessment Status Discharge Diagnosis S80.01XD ICD-10 Condition Codes (PT) M25.561 Onset 02/04/24 Subjective Information patient reports she has not been to therapy in a while due to her mom being ill. she reports since being away from therapy, her knee has not felt too bad, but she fell and injured the L arm/elbow. she reports she fell and landed on the L arm/elbow first before the rest of her body hit the ground. she reports the L arm is bothering her the most now. she presents to skilled PT with OT orders to evaluate and treat the L arm. Reported Pain Level Pain Score 5: Self Report Pain Score 5: Self Report Assessment PT Clinical Summary mrs. mackay presents to skilled PT for her 8th skilled PT visit for the R knee. she has been away from therapy for 2 months caring for her ill mother. during this time off, she fell and injured her L arm. she now has more arm and knee pain. she presents with an order to have OT evaluate the L arm pain. she has met over 50% of goals for skilled PT as of this date. her rom is normal, strength is normal, and patient ambulates with normal mechanics on level ground and reciprocally up and down steps. she will be DC'd from skilled PT of the R knee today. patient will continue R knee HEP independent at home. Plan of Care PT Services Indicated Yes
== END 2024-05-27 09:31 | disposition home or self-care (01) ==
LOC: CHSPT 08:39
PROVIDERS: Visit Provider Nurse Practitioner Family
DX: S80.01XD Contusion of right knee, subsequent encounter (principal); M25.561 Pain in right knee
CPT/HCPCS: 97530

== ENCOUNTER 2024-06-08 17:07 | Outpatient (RCR) | payer OTHER, SELFPAY ==
--- NOTE | 2024-06-08 15:49 | OTOPEVAL1 ---
Assessment and note entered by Crista Martin OT Evaluation Information Assessment Status Evaluation Diagnosis L arm pain ICD-10 Condition Codes (OT) M62.81 Onset 04/06/2024 Reported Pain Level Pain Score 7: Self Report Assessment OT Clinical Summary The patient is a 58 year old female who was referred to outpatient OT due to pain in L arm. She reports pain started on 04/06/2024 when she fell while playing kickball with her grandson. Her PMH includes but is not limited to carpal tunnel surgery to R UE, depression w/ menopause, mitral valve prolapse. The patient demonstrates severe pain reporting 7 to 10/10 pain at its worse. She reports functional deficits as she is unable to clasp her bra, don shirts, hold steering wheel and perform IADLs due to pain. She demonstrates limited AROM of L shoulder due to pain and has minimal hand weakness due to pain. Therapist to address arm pain and weakness in order to improve function and avoid further injury. Therapist educated patient on sleep positioning, HEP for radial nerve glides, and to maintain joint mobility of surrounding joints of L arm. Plan of Care Interventions Therapeutic Exercise,Manual Therapy,Neuro Re- education,Therapeutic Activities,Hot Pack/Cold Pack,Electrical Stimulation,Sensory Integrative Techn,Self-Care/Home Management,Prosthetic Training,Ultrasound OT Services Indicated Yes Treatment Frequency and 2x/week for 10 visits. Duration These treatments will address the objective and functional deficits as defined above. The patient will be advanced safely and appropriately in order for the patient to progress towards his/her prior level of function. Additional exercises will be introduced and as well as a comprehensive home exercise program upon discharge, if needed, ?to ensure carryover of functional gains achieved in the clinic. This treatment plan has been reviewed and agreement upon by the patient.
--- NOTE | 2024-06-08 15:49 | OPREHPOC ---
Outpatient Therapy Plan of Care This is a Multidisciplinary Plan of Care that may contain components documented by all disciplines (PT, OT, and ST.) OT Problem 1 OT Problem #1 Knowledge Deficit OT Goal 1 Goal / Goal Update The patient will demonstrate 100% knowledge and return demonstration for UE HEP in order to improve pain symptoms. Target Visit 10 OT Problem 2 OT Problem #2 Pain OT Goal 1 Goal / Goal Update The patient will demonstrate <4/10 pain at pain worst per patient report during daily functional tasks needed to avoid UE dysfunction. Target Visit 10 OT Problem 3 OT Problem #3 Impaired Range of Motion OT Goal 1 Goal / Goal Update The patient will demonstrate WNL AROM of L shoulder with reports of 0/10 pain needed to maintain joint mobility and UE strength for independence during ADLs. OT Problem 4 OT Problem #4 Impaired Strength OT Goal 1 Goal / Goal Update The patient will demonstrate increased strength of L horse breaker strength as >60 lbs needed to maintain strength for ADLs. Target Visit 10
--- NOTE | 2024-07-24 12:01 | OTOPDC ---
Assessment and note entered by Crista Martin OT Evaluation Information Assessment Status Discharge Diagnosis L arm pain ICD-10 Condition Codes (OT) Generalized muscle weakness M62.81 Reported Pain Level Pain Score 4: Self Report Assessment OT Clinical Summary The patient demonstrates significant progress in chute boss strength, shoulder AROM and understanding of UE HEP which have increased patient's success with ADLs involving chute boss and overhead reaching. The patient continues to demonstrate severe pain in L shoulder during scaption with internal rotation, internal rotation, and horizontal adduction which could be signs of internal shoulder impingement. During therapy POC, therapist engaged patient in manual techniques including shoulder mobilizations , stretches, exercises, and electrical stimulation treatment to address pain and increase strength. The patient demonstrates improvement in ROM and chute boss strength with continued L shoulder pain affecting her ADLs and IADLs. The patient has been educated on postural awareness in general and during lifting activities to avoid strain on shoulder, educated on stretches and resistance band exercises to continue at home in order to maintain mobility of shoulder. The patient demonstrates understanding of POC and is to consult with MD to determine further treatment for L shoulder pain. The patient continues to have pain following 6 weeks of OT and is to refer to physician for further management. The patient is discharged this date. Plan of Care OT Services Indicated No
--- NOTE | 2024-07-24 12:01 | OPREHPOC ---
Outpatient Therapy Plan of Care This is a Multidisciplinary Plan of Care that may contain components documented by all disciplines (PT, OT, and ST.) OT Problem 1 OT Problem #1 Knowledge Deficit OT Goal 1 Goal / Goal Update The patient will demonstrate 100% knowledge and return demonstration for UE HEP in order to improve pain symptoms. GOAL MET Target Visit 10 Progress Met OT Problem 2 OT Problem #2 Pain OT Goal 1 Goal / Goal Update The patient will demonstrate <4/10 pain at pain worst per patient report during daily functional tasks needed to avoid UE dysfunction. NOT MET; between 5-9/10 pain Target Visit 10 Progress Not Met OT Problem 3 OT Problem #3 Impaired Range of Motion OT Goal 1 Goal / Goal Update The patient will demonstrate WNL AROM of L shoulder with reports of 0/10 pain needed to maintain joint mobility and UE strength for independence during ADLs. GOAL MET; minimal pain continued during movements but decreased from severe pain and demonstrates full AROM Progress Partially Met OT Problem 4 OT Problem #4 Impaired Strength OT Goal 1 Goal / Goal Update The patient will demonstrate increased strength of L narrow fabric calenderer strength as >60 lbs needed to maintain strength for ADLs. Records Tech strength: 57 lbs Target Visit 10 Progress Partially Met
--- NOTE | 2024-07-24 12:01 | OTOPDC ---
Assessment and note entered by Crista Martin OT Evaluation Information Assessment Status Discharge Diagnosis L arm pain ICD-10 Condition Codes (OT) Generalized muscle weakness M62.81 Reported Pain Level Pain Score 4: Self Report Assessment OT Clinical Summary The patient demonstrates significant progress in anthropometrist strength, shoulder AROM and understanding of UE HEP which have increased patient's success with ADLs involving anthropometrist and overhead reaching. The patient continues to demonstrate severe pain in L shoulder during scaption with internal rotation, internal rotation, and horizontal adduction which could be signs of internal shoulder impingement. During therapy POC, therapist engaged patient in manual techniques including shoulder mobilizations , stretches, exercises, and electrical stimulation treatment to address pain and increase strength. The patient demonstrates improvement in ROM and anthropometrist strength with continued L shoulder pain affecting her ADLs and IADLs. The patient has been educated on postural awareness in general and during lifting activities to avoid strain on shoulder, educated on stretches and resistance band exercises to continue at home in order to maintain mobility of shoulder. The patient demonstrates understanding of POC and is to consult with MD to determine further treatment for L shoulder pain. The patient continues to have pain following 6 weeks of OT and is to refer to physician for further management. The patient is discharged this date. Plan of Care OT Services Indicated No
== END 2024-07-24 14:00 | disposition home or self-care (01) ==
LOC: CHSOT 17:07
PROVIDERS: Visit Provider Nurse Practitioner Family
DX: M62.81 Muscle weakness (generalized) (principal)
CPT/HCPCS: 97014; 97110; 97140; 97165; 97530; G0283

== ENCOUNTER 2024-07-07 14:14 | Emergency (ER) | payer OTHER, SELFPAY ==
--- NOTE | ~2024-07-07 | CT_ITS ---
EXAMINATION: CT facial & cervical spine wo DATE: 07/07/2024 15:16 INDICATION: head trauma TECHNIQUE: Computed tomography (CT) of the maxillofacial region and cervical spine was performed with out intravenous contrast. Automated exposure control and iterative reconstruction technique were empl oyed. The dose-length product was 123.15 mGy-cm. COMPARISON: CT C-spine for 622 FINDINGS: CERVICAL: Vertebral Body Alignment: Intact. Craniocervical and atlantoaxial alignment: No significant degenerative change. Alignment intact. Osseous structures/fracture: No evidence of a lytic or blastic process in the visualized spine. No e vidence of acute fracture. Cervical soft tissues: The paraspinal soft tissues planes are maintained. Mild biapical pleural scarr ing. Small right apical pleural bleb. Degenerative changes: Mild degenerative changes, without severe neural foraminal or central canal mckay rowing. FACE: Soft Tissues: Possible contusion over the right orbit. Facial bones: No acute fracture. No lytic or blastic process. Eyes: The globes are intact. The soft tissue planes of the orbits are maintained. Paranasal Sinuses: Small retention cyst/polyp in the sphenoid sinus, ethmoid and bilateral maxillary mucosal thickening, the remaining aerated spaces are clear. Foreign Bodies: No radiopaque foreign bodies. Other Findings: None. IMPRESSION: No acute fracture or traumatic malalignment in the cervical spine. No acute facial bone fracture. Reviewed, dictated and finalized at location K. Y TECH IMPRESSION: No acute fracture or traumatic malalignment in the cervical spine. No acute fac ial bone fracture.
--- NOTE | ~2024-07-07 | CT_ITS ---
EXAMINATION: CT brain wo con DATE: 07/07/2024 15:15 INDICATION: closed head trauma . TECHNIQUE: Computed tomography (CT) of the head was performed without intravenous contrast. The mA wa s adjusted according to patient size. Iterative reconstruction technique was employed. The dose-lengt h product was 605.33 mGy-cm. COMPARISON: None. FINDINGS: No acute intracranial hemorrhage or extra-axial fluid collection. No hydrocephalus, mass, or herniation. No acute ischemic infarct. Unremarkable dural venous sinus attenuation. No acute osseous abnormality. The aerated spaces are clear. IMPRESSION: No acute intracranial process. Reviewed, dictated and finalized at location K. IOTHERAPY AIDE
[2024-07-07 14:14] VITALS: BP 129/81; PULSE 85; RESP 20; TEMP 37; O2SAT 100
--- NOTE | 2024-07-07 14:52 | ED_ITS ---
HPI - General Adult General Chief complaint: Head Injury Stated complaint: HEAD INJURY Time Seen by Provider: 07/07/24 14:52 Source: patient Mode of arrival: ambulatory Limitations: no limitations History of Present Illness HPI narrative: 58-year-old white female hit her head against the car door yesterday and then again today on the other side of her head. She had no loss of consciousness. Yesterday she was hit in the forehead on left-side cause a bruise is a small abrasion. Today she got hit on the right-sided causing a bruit over her right temporal area /eyebrow. She said she had some vertigo spinning sensation but is much better now she is nauseated. Denies any weakness or paresthesias problems walking talking seeing or hearing chest pain shortness of breath fever rash or itching other lumps or bumps or other injuries. She has been eating and drinking without any problems. Denies any bleeding or bruising other than her head. Or any other complaints. Related Data Home Medications ?Medication ?Instructions ?Recorded ?Confirmed ?Last Taken ?Type estradiol 1 mg tablet 1 mg PO DAILY 10/11/21 07/07/24 Unknown History gabapentin 300 mg capsule 600 mg PO QID 10/11/21 07/07/24 Unknown History progesterone micronized 100 mg 100 mg PO DAILY 10/11/21 07/07/24 Unknown History capsule citalopram 40 mg tablet 40 mg PO DAILY 12/16/23 07/07/24 Unknown History Allergies Allergy/AdvReac Type Severity Reaction Status Date / Time amoxicillin (From Augmentin) Allergy Hives Verified 07/07/24 14:26 azithromycin (From Zithromax) Allergy Hives Verified 07/07/24 14:26 clavulanic acid (From Allergy Hives Verified 07/07/24 14:26 Augmentin) naproxen Allergy Hives Verified 07/07/24 14:26 Review of Systems Review of Systems: All systems reviewed & are unremarkable except as noted in HPI and below PMFSH Social History Social History Social History: smokes marijuana on a regular basis Smoking status: Former smoker Substance use: current Substance use type: marijuana Exam Narrative: White female patient with no apparent distress.? Head left forehead bruised tiny abrasion healed tender, right forehead around the eyebrow small swelling tender tiny abrasion.? Eyes conjunctiva pink sclera nonicteric.? Extraocular mo vements are intact.? Ears externally normal.? TMs are normal. ?Oropharynx is clear with moist mucous membranes without exudates.? Neck is supple , mild posterior tenderness with no lymphadenopathy.? Back is nontender.? Lungs are clear.? Heart is regular rate and rhythm without murmurs gallops or rubs.? Chest wall nontender. Abdomen is soft and nontender no hepatosplenomegaly or masses no CVA tenderness no abdominal bruits.? Extremities no cyanosis clubbing or edema.? Skin is warm and dry without rashes or lesions.? Neurological patient is alert and oriented x4.? Motor and sensory grossly intact.? Gait is normal. Course Vital Signs Vital signs: Vital Signs Temperature 37.0 C 07/07/24 14:14 Pulse Rate 85 07/07/24 14:14 Respiratory Rate 20 07/07/24 14:14 Blood Pressure 129/81 07/07/24 14:14 Pulse Oximetry 100 07/07/24 14:14 Oxygen Delivery Room Air 07/07/24 14:14 Temperature 37.0 C 07/07/24 14:14 Pulse Rate 85 07/07/24 14:14 Respiratory Rate 20 07/07/24 14:14 Blood Pressure 129/81 07/07/24 14:14 Pulse Oximetry 100 07/07/24 14:14 Oxygen Delivery Room Air 07/07/24 14:14 Medical Decision Making MDM Narrative Medical decision making narrative: Patient placed in room: 1 ? History and physical was performed. CT head cervical spine and facial bones without: no fracture dislocation Independent Historian: patient daughter External Source Review: Differential Dx includes but not limited to: Fracture hemorrhage Medications were Reviewed: patient has tramadol and gabapentin at home for pain. Medications given: [place] 5 patient was improved after this. Independently Interpreted by me: Shared decision Making: evaluation was discussed all questions were asked and answered patient agreed with the plan. She got tramadol at home that she can use follow-up with her primary care provider. Will give her [place] 5 4 times a day as needed for pain. Social Situation Impacting Patients Care: Discussed with Dr. PINEDA DIAGNOSIS: Close head injury, neck sprain DISPOSITION : discharge home CONDITION AT DISCHARGE: stable Vital Signs Vital Signs: Vital Signs Temperature 37.0 C 07/07/24 14:14 Pulse Rate 85 07/07/24 14:14 Respiratory Rate 20 07/07/24 14:14 Blood Pressure 129/81 07/07/24 14:14 Pulse Oximetry 100 07/07/24 14:14 Oxygen Delivery Room Air 07/07/24 14:14 Temperature 37.0 C 07/07/24 14:14 Pulse Rate 85 07/07/24 14:14 Respiratory Rate 20 07/07/24 14:14 Blood Pressure 129/81 07/07/24 14:14 Pulse Oximetry 100 07/07/24 14:14 Oxygen Delivery Room Air 07/07/24 14:14 Discharge Plan Discharge Clinical Impression: Head injury Qualifiers: Encounter type: initial encounter Qualified Code(s): S09.90XA - Unspecified injury of head, initial encounter Contusion of face Qualifiers: Encounter type: initial encounter Qualified Code(s): S00.83XA - Contusion of other part of head, initial encounter Patient Disposition: Home, Self-Care Condition: Stable Instructions: Concussion (ED), Head Injury (ED) Additional Instructions: take your tramadol as needed for pain may get [place] 5 every 6 hours as needed for pain. Follow-up with your primary care provider this week. Return if you get worse or develops any new symptoms. Patient Language: Luxembourger Prescriptions: No Action estradiol 1 mg tablet 1 mg PO DAILY gabapentin 300 mg capsule 600 mg PO QID progesterone micronized 100 mg capsule 100 mg PO DAILY citalopram 40 mg tablet 40 mg PO DAILY tramadol 50 mg tablet 50 mg PO Q6H PRN (Reason: pain) Qty: 10 0RF Follow-up/Referrals: Baldo Styles MD [Primary Care Provider] - Time of Disposition: 17:42
[2024-07-07 15:00] VITALS: BP 127/79; PULSE 75; RESP 16; O2SAT 98
[2024-07-07] MEDS: HYDROcodone/acetaminophen (*CRX) 5-325 MG TABLET 1 TAB PO (15:30)
[2024-07-07 16:00] VITALS: BP 131/76; PULSE 75; RESP 17; O2SAT 96
[2024-07-07 17:00] VITALS: BP 147/82; PULSE 79; RESP 17; O2SAT 98
[2024-07-07 17:58] VITALS: BP 147/82; PULSE 79; RESP 17; TEMP 36.6; O2SAT 98
== END 2024-07-07 17:58 | disposition home or self-care (01) ==
PROVIDERS: Emergency Provider Emergency Medicine; PCP Obstetrics & Gynecology
DX: S09.90XA Unspecified injury of head, initial encounter (principal); S00.83XA Contusion of other part of head, initial encounter; W22.09XA Striking against other stationary object, initial encounter; F12.90 Cannabis use, unspecified, uncomplicated; Z87.891 Personal history of nicotine dependence
CPT/HCPCS: 70450; 70486; 72125; 99284; A9270; L0150

== ENCOUNTER 2024-09-25 09:02 | Outpatient (CLI) | payer OTHER, SELFPAY ==
--- NOTE | ~2024-09-25 | MM_ITS ---
EXAMINATION: MM screening [place] BI w ned HISTORY: Screening TECHNIQUE: Craniocaudal and mediolateral oblique 3-D tomosynthesis images were obtained and synthetic 2-D images were generated. CAD analysis was submitted and interpreted. COMPARISON: Comparison to multiple prior studies sequentially, with oldest reviewed study dated 10/2020. BREAST PARENCHYMAL COMPOSITION: Dense: The breasts are heterogeneously dense, which may obscure small masses there is a FINDINGS: There is a focal asymmetry inferiorly on the MLO view of the right breast. There are no damir picious masses, calcifications or architectural distortion in the left breast to suggest malignancy. IMPRESSION: 1. Focal right breast asymmetry inferiorly on MLO view, posterior third. 2. Additional mammographic views and possible breast ultrasound are recommended. BI-RADS Category 0: Incomplete: Needs additional imaging evaluation. Reviewed, dictated and finalized at location B. IMPRESSION: 1. Focal right breast asymmetry inferiorly on MLO view, posterior third. 2. Additional mammographic views and possible breast ultrasound are recommended . BI-RADS Category 0: Incomplete: Needs additional imaging evaluation.
--- OUTSIDE RECORDS SUMMARY | 2024-09-25 10:04 | XMS_ITS | Clinical Summary ---
Author Organization [facility] Care Team Providers Care Child Nutrition Manager Name Role Phone Unavailable Primary Care Provider Unavailabl e Social History Tobacco Use Types Packs/Day Years Used Date Smoking Tobacco: Never Assessed Comments Unknown Sex and Gender Information Value Date Recorded Sex Assigned at Not on file Legal Sex Female 9:02 PM CDT Gender Identity Not on file Sexual Orientation Not on file Plan of Treatment Health Maintenance Due Date Last Done Comments Hepatitis C Virus (HCV) Screening 1966 TdaP Immunization 1966 Hepatitis B Immunization (1 of 3 - 19+ 3-dose series) 1985 Pap Smear 11/25/1987 Cervical Cancer Screening (CCS) 1996 HPV/Cotest 1996 Colonoscopy 11/25/2011 Colorectal Cancer Screening 11/25/2011 Cologuard 2016 Immunochemical Fecal Occult Blood 2016 Mammogram 2016 Pneumococcal Immunization (5 0+ years) (1 of 1 - PCV) 2016 Zoster Immunization (1 of 2) 2016 Influenza Immunization (#1) 2024 SARS-COV-2 Immunization ( - 2023- season) 2024 Respiratory Syncytial Virus (RSV) Immunization (Adult) (1 - 1-dose 75+ series) 2041 Meningococcal Immunization (ACWY) Aged Out No longer eligible based on patient's age to complete this topic Pneumococcal Immunization Combined Aged Out No longer eligible based on patient's age to complete this topic Rotavirus Immunization Aged Out No lo nger eligible based on patient's age to complete this topic
--- OUTSIDE RECORDS SUMMARY | 2024-09-25 10:04 | XMS_ITS | Encounter Summary ---
Author Organization [facility] [place] Address [address] [place] [address] Care Team Providers Care Senior Training And Development Rep Name Role Phone Lizbeth Boo Primary Care Provider [phone] Lizbeth Boo Primary Care Provider [phone] Lizbeth Boo Unavailable [phone] Jeff Garcia MD Unavailable [phone] Kenney Martinez APRN Unavailable [phone] Tio Rutledge DO Unavailable Encounter Details Date Type Department Care Team (Late st Contact Info) Description 12/25/2019 [employer] Message Enc [facility] [address] [place] [address], [address] [place] [address] Fernanda Clements, [facility]- [address] [place] [address] Visit Follow Up Social History Tobacco Use Types Packs/Day Years Used Date Smoking Tobacco: Former Cigarettes Q uit: 2018 Smokeless Tobacco: Never Comments:smokes marijuana Alcohol Use Standard Drinks/Week Comments Not Currently 0 (1 standard drink = 0.6 oz pur e alcohol) occasionally Comments Unknown Sex and Gender Information Value Date Recorded Sex Assigned at Not on file Legal Sex Female 8:28 PM CDT Gender Identity Not on file Sexual Orientation Not on file COVID-19 Exposure Response Date Recorded In the last month, have you been in contact with someone who was confirmed or suspected to have Coronavirus / COVID-19? No / Unsure 12/25/2019 11:28 AM CDT documented as of this encounter Plan of Treatment Not on file documented as of this encounter Visit Diagnoses Not on filedocumented in this encounter Additional Health Concerns Infection Onset Date Last Indicated Resolved Time COVID-19 Rule Out 03/03/2021 03/03/2021 03/03/2021 5:21 PM CDT COVID-19 Rule Out 03/03/2021 03/03/2021 05/29/2021 7:41 PM CLIENT SUPPORT PROFESSIONAL COVID-19 Rule Out 03/03/2021 03/03/2021 07/27/2021 2:08 PM CLIENT SUPPORT PROFESSIONAL documented as of this encounter Care Teams Senior Training And Development Rep Relationship Specialty Start Date End Date Lizbeth Boo PA [address] [place] [id number] PCP - General PHYSICIAN GAS METER CHECKER 09/03/19 10/12/21 Lizbeth Boo PA [address] [id number] PCP - General PHYSICIAN GAS METER CHECKER 10/13/21 Lizbeth Boo PA [address] [id number] PHYSICIAN GAS METER CHECKER 10/13/21 05/01/22 Jeff Garcia MD [address] [id number] Consulting Physician INTERVENTIONAL CARDIOLOGY 09/03/19 Kenney Martinez APRN [address] [id number] Nurse Practitioner NURSE PRACTITIONER 09/03/19 Tio Rutledge DO [address] [facility] [address] [place] [address] INTERNAL MEDICINE 05/02/22 documented as of this encounter
--- OUTSIDE RECORDS SUMMARY | 2024-09-25 10:04 | XMS_ITS | Clinical Summary ---
Author Organization [facility] Medical Office Building B Address [address] [place] [address] Care Team Providers Care Nutrition Helper Name Role Phone Lizbeth Boo Primary Care Provider [phone] Allergies Active Allergy Reactions Criticality Noted Date Comments Amoxicillin-Pot Clavulanate Anaphylaxis High 020 Cephalexin Rash Medium 06/13/2020 Naproxen Hives Medium 03/11/2013 Medications gabapentin (NEURONTIN) 400 mg capsule Take 600 mg by mouth 3 (three) times a day 02/04/2020 Active Active Problems Problem Noted Date Diagnosed Date HLD (hyperlipidemia) 05/26/2020 MVP (mitral valve prolapse) 05/26/2020 Blood in stool 05/24/2020 Assessment & Plan (05/24/2020 1:38 PM BINDERY MACHINE SETTER): Severe constipation for over 1`0 yrs with occ BRB. Never colonoscoped. Diet devoid of fiber so suggested fruit tid, colonoscopy, and on exam today II- III roids. Desires IRC. Will do screening colonoscopy and IRC. Gastroesophageal reflux disease 05/24/2020 Assessment & Plan (05/24/2020 1:39 PM BINDERY MACHINE SETTER): Severe substernal burning to spicy foods getting worse but some relief with pepcid. notye recent onset dysphagia to solids. Will EGD and possibly dil at time of colonoscopy. Encounter for screening colonoscopy 05/24/2020 Overview (05/24/2020): Added automatically from request for surgery [id number] Dysphagia 05/24/2020 Overview (05/24/2020): Added automatically from request for surgery [id number] Other hemorrhoids 05/24/2020 Overview (05/24/2020): Added automatically from request for surgery [id number] Neuroma 02/18/2020 Strain of right hip adductor muscle 01/08/2020 Greater trochanteric bursitis of right hip 12/24 BARRIENTOS (dyspnea on exertion) 09/07/2019 Surgical History Surgery Date Site/Laterality Comments SECTION section CARPAL TUNNEL RELEASE TUBAL LIGATION 07/08/1992 - 07/07/1993 [facility] CYST REMOVAL 07/08/2012 - 07/07/2013 PYLENODAL CYST REMOVAL-[facility] 07/08/2019 - 07/07/2020 HEART CATH- [facility] COLONOSCOPY 06/14/2020 1st UPPER GASTROINTESTINAL ENDOSCOPY 06/14/2020 Medical History Medical History Date Comments Hx Other Medical mitral valve pr olapse Hx Other Medical Tubal Heart valve disease Anemia Hypertension Urinary tract infection Dysphagia Family History Medical History Relation Name Comments Hypertension Brother No Known Problems Daughter Alcohol abuse Father Arthritis Father Diabetes Father Hypertension Father Heart disease Mother Mental illness Mother Stroke Mother Hypertension Other Family history of Hypertension; Arthritis Sister Hypertension Sister No Known Problems Son Relation Name Status Comments Brother Daughter Father Mother Other Sister Son Social History Tobacco Use Types Packs/Day Years Used Date Smoking Tobacco: Former Smokeless Tobacco: Never Alcohol Use Standard Drinks/Week Comments Yes 0 (1 standard drink = 0.6 oz pur e alcohol) SOCIAL Comments Unknown Sex and Gender Information Value Date Recorded Sex Assigned at Not on file Legal Sex Female 1:25 AM BINDERY MACHINE SETTER Gender Identity Not on file Sexual Orientation Not on file Obstetrics History Last Filed Vital Signs Vital Sign Reading Time Taken Comments Blood Pressure 130/83 06/14/2020 11:46 AM BINDERY MACHINE SETTER Pulse 62 06/14/2020 11:46 AM BINDERY MACHINE SETTER Temperature 36.6 C (97.8 F) 06/14/2020 11:46 AM BINDERY MACHINE SETTER Respiratory Rate 16 06/14/2020 11:46 AM BINDERY MACHINE SETTER Oxygen Saturation 100% 06/14/2020 11:46 AM BINDERY MACHINE SETTER Inhaled Oxygen Concentration - - Weight 61.2 kg (135 lb) 05/26/2020 3:47 PM BINDERY MACHINE SETTER Height 165.1 cm (5' 5 ) 05/26/2020 3:47 PM BINDERY MACHINE SETTER Body Mass Index 22.47 05/26/2020 3:47 PM BINDERY MACHINE SETTER Plan of Treatment Health Maintenance Due Date Last Done Comments Breast Cancer Screening-Mammogram 1965 Cervical Cancer Screening 1966 Depression Screening 1966 Hepatitis C Screening 1966 DTaP/Tdap/Td Vaccine (1 - Tdap) 1977 Hepatitis B Screening 1984 Regular Well Visit/Exam 18-64 1984 Zoster Vaccine (1 of 2) 2016 Influenza Vaccine (#1) 2024 Colon Cancer Screening-Colonoscopy 06/14/20302019 Pneumococcal vaccine <65 Aged Out No longer eligible based on patient's age to complete this topic Procedures Procedure Name Priority Date/Time Associated Diagnosis Comments COLONOSCOPY 06/14/2020 10:33 AM BINDERY MACHINE SETTER from Last 3 Months or Most Recently Relevant to Health Maintenance Results * COLONOSCOPY (06/14/2020 10:33 AM BINDERY MACHINE SETTER) Anatomical Region Laterality Modality Other Narrative Procedure Note Lobo Little MD - 06/14/2020 10:33 AM CST [facility] Patient Name: Tatiana Baron Procedure Date: 06/14/2020 10:33 AM Date of : 1965 Admit Type: Outpatient Age: 54 Gender: Female Attending MD: Lobo Little M.D. Room: [facility] ENDOSCOPY ROOM 2 Note Status: Finalized Patient Profile: Refer to note in patient chart for documentation of history and physical. Procedure: Colonoscopy Indications: This is the patient's first colonoscopy, Screeningfor colorectal malignant neoplasm Referring MD: Lizbeth Boo PA-C Providers: Lobo Little M.D. Impression: - Hemorrhoids found on perianal exam. - One 5 mm polyp in the rectum, removed with a hot biopsy forceps. Resected and retrieved. - The examination was otherwise normal. Recommendation: - Discharge patient to home. - Resume previous diet. - Continue present medications. - Await pathology results. - Repeat colonoscopy in 5 years for surveillance. - Return to primary care physician as previously scheduled. Medicines: Propofol per Anesthesia Complications: No immediate complications. Estimated Blood Loss: Estimated blood loss: none. Procedure: Pre-Anesthesia Assessment: - This assessment was completed [Time of Assessment] prior to the administration of sedation. - This assessment was completed [Time of Assessment] prior to the administration of sedation. The benefits, risks and alternatives of theprocedure and sedation were discussed and informed consent was obtained. All questions were answered. Please referto the signed informed consent document in the medical record. The scope was passed under direct vision.The Colonoscope [id number] was introducedthrough the anus and advanced to the the cecum, identifiedby appendiceal orifice and ileocecal valve. Bowel prepwas administered using a single dose. The bowelpreparation used was Miralax. The bowel preparation used was bisacodyl tablets. The colonoscopy was performed without difficulty. The patient tolerated theprocedure well. The quality of the bowel preparation was excellent. Findings: Hemorrhoids were found on perianal exam. A 5 mm polyp was found in the rectum. The polyp was sessile. Thepolyp was removed with a hot biopsy forceps. Resection and retrieval were complete. Verification of patient identification for the specimen was done by the physician and nurse using the patient's name and birthdate. Estimated blood loss was minimal. The exam was otherwise without abnormality. Electronically signed by Lobo Little M.D. Lobo Little M.D. 06/14/2020 11:06:56 AM Number of Addenda: 0 Note Initiated On: 06/14/2020 10:33 AM Procedure Code(s): --- Professional --- 71628, Colonoscopy, flexible; with removal of tumor(s), polyp(s), or other lesion(s) by hot biopsy forceps Diagnosis Code(s): --- Professional --- K62.1, Rectal polyp K64.9, Unspecified hemorrhoids Z12.11, Encounter for screening for malignant neoplasm of colon CPT copyright 2017 [employer]. All rights reserved. The codes documented in this report are preliminary and upon machine gun mechanic reviewmay be revised to meet current compliance requirements. Recognized by the [employer] for promoting quality in endoscopy Lobo Little MD ENDOSCOPY PROCEDURES Final Re sult from Last 3 Months or Most Recently Relevant to Health Maintenance Insurance [place] [facility] Advance Directives For more information, please contact: [phone] * Full Code (Latest Code Status on File) Date Activated Date Inactivated Comments 06/14/2020 9:49 AM 06/14/2020 4:08 PM * Full Code Date Activated Date Inactivated Comments 06/14/2020 9:49 AM 06/14/2020 9:49 AM Care Teams Nutrition Helper Relationship Specialty Start Date End Date Lizbeth Boo PA [address] [place] [address] PCP - General Emergency Medicine 05/24/20
--- OUTSIDE RECORDS SUMMARY | 2024-09-25 10:04 | XMS_ITS | Clinical Summary ---
Author Organization [facility] Address [address] [place] [address] Care Team Providers Care Regulatory Compliance Specialist Name Role Phone Lizbeth Boo Primary Care Provider [phone] Jeff Garcia MD Unavailable [phone] Kenney Martinez REINFORCING STEEL ERECTOR Unavailable [phone] Tio Rutledge DO Unavailable Allergies Active Allergy Reactions Criticality Noted Date Comments Amoxicillin-Pot Clavulanate Anaphylaxis High 020 Mushrooms Nausea and Vomiting 09/10/2019 Naproxen Hives 03/11/2013 Medications omeprazole 20 MG capsule take 1 capsule by oral route every day 30 minutes to 1 hour before a meal 09/03/2019 Active ondansetron 4 MG tablet Take 4 mg by mouth 2 (two) times daily. 11/05/2019 Active traMADol 50 MG tablet Take 50 mg by mouth 2 (two) times a day. Active aspirin EC 325 MG Tab EC tablet Take 325 mg by mouth daily. Active medroxyPROGESTE Ramón 5 MG tablet Take 5 mg by mouth daily. 01/21/2020 Active gabapentin 400 MG capsuleIndicati ons:Neuroma Take 1 capsule (400 mg total) by mouth 3 (three) times daily. 90 capsule 02/04/2020 Active gabapentin 300 MG capsuleIndicati ons:Neuroma Take 1 capsule (300 mg total) by mouth 3 (three) times daily. 90 capsule 1 03/17/2020 Active gabapentin 400 MG capsule Take 1 capsule (400 mg total) by mouth 3 (three) times daily. 90 capsule 1 03/17/2020 Active Active Problems Problem Noted Date Diagnosed Date Neuroma 02/18/2020 Strain of right hip adductor muscle, subsequent encounter 01/08/2020 Greater trochanteric bursitis of right hip 12/24 BARRIENTOS (dyspnea on exertion) 09/07/2019 Chest tightness 09/07/2019 MVP (mitral valve prolapse) HLD (hyperlipidemia) Family History Medical History Relation Comments Hypertension Brother 1 Hypertension Brother 2 Heart Attack Maternal Grandfather Heart Disease Maternal Grandfather No Known Problems Maternal Grandmother Heart Disease Mother Hypertension Mother Hypertension Sister Relation Status Comments Brother 1 Alive Brother 2 Alive Maternal Grandfather Maternal Grandmother Mother Alive Sister Alive Social History Tobacco Use Types Packs/Day Years Used Date Smoking Tobacco: Former Cigarettes 0.5 47 1 970 - 2016 Smokeless Tobacco: Never Comments:smokes marijuana Alcohol Use Standard Drinks/Week Comments Not Currently 0 (1 standard drink = 0.6 oz pur e alcohol) occasionally Comments Unknown Sex and Gender Information Value Date Recorded Sex Assigned at Not on file Legal Sex Female 8:28 PM CDT Gender Identity Not on file Sexual Orientation Not on file Last Filed Vital Signs Vital Sign Reading Time Taken Comments Blood Pressure 122/65 01/26/2024 1:18 PM CDT Pulse 86 01/26/2024 1:18 PM CDT Temperature 36.4 C (97.5 F) 01/26/2024 1:18 PM CDT Respiratory Rate 20 01/26/2024 1:18 PM CDT Oxygen Saturation 98% 01/26/2024 1:18 PM CDT Inhaled Oxygen Concentration - - Weight 56.7 kg (125 lb) 01/26/2024 1:18 PM CDT Height 165.1 cm (5' 5 ) 01/26/2024 1:18 PM CDT Body Mass Index 20.8 01/26/2024 1:18 PM CDT Plan of Treatment Health Maintenance Due Date Last Done Comments Colorectal Cancer Screening Colonoscopy (10 Years) 1966 Annual Physical 1969 Pneumococcal Vaccine: Pediat rics (0 to 5 Years) and At-Risk Patients (6 to 64 Years) (1 of 2 - PCV) 1972 Hepatitis C 1984 Hepatitis B Vaccines (1 of 3 - 19+ 3-dose series) 1985 Cervical Cancer Screening Pa p with HPV Testing (Age 30 to 64) Every 5 Years 1996 Lung Cancer Screening 2016 Zoster Vaccines (1 of 2) 2016 Mammogram Screening 09/14/2021 09/15/2019 COVID-19 Vaccine (1 - 2023-2 5 season) 2024 Influenza Adult (#1) 2024 Cervical Cancer Screening Pa p Smear (Age 30 to 64) Every 3 Years 10/14/2026 10/15/2023 Cervical Cancer Screening with HPV 10/14/2026 DTaP, Tdap and Td Vaccines ( 2 - Td or Tdap) 10/30/2027 10/29/2017 Meningococcal B Vaccine Aged Out No l onger eligible based on patient's age to complete this topic Meningococcal Vaccine Aged Out No jesse merlyn eligible based on patient's age to complete this topic RSV Immunizations Under 20 Months Aged Out No longer eligible based on patient's age to complete this topic Procedures Procedure Name Priority Date/Time Associated Diagnosis Comments MG SCREENING W TRACIE SUE DIGI Routine 09/15/2019 8:31 AM CDT Visit for screening mammogram from Last 3 Months or Most Recently Relevant to Health Maintenance Results * MG SCREENING W TRACIE SUE DIGI (09/15/2019 8:31 AM CDT) Anatomical Region Laterality Modality Breast Bilateral Mammography 09/15/2019 4:48 PM CDT Impressions 09/15/2019 4:49 PM CDT IMPRESSION: No suspicious change since the previous exams. Recommendation: 1: Routine screening mammogram Bilateral in 1 Year Assessment: ACR BI-RADS Category 2 - Benign. Interpreted By: Jese Cowan, 09/15/2019 4:48 PM Narrative 09/15/2019 4:49 PM CDT Examination: Digital screening mammogram with CAD. Clinical history: Asymptomatic patient presents for routine screening. Comparison: 12/30/2015, 01/01/2011. Technique: Bilateral digital mammograms. The exam was interpreted with the use of a computer-aided detection (CAD) system. Additional 3-D tomosynthesis images were acquired. Tissue density: The breast tissue is heterogeneously dense. Findings: The breast tissue is heterogeneously dense. The dense tissue may obscure some lesions mammographically. Benign-appearing calcification noted. No suspicious mass, microcalcification or area of architectural distortion can be identified. From a mammographic standpoint, routine followup in one year would seem adequate. Lizbeth JACOBO MAMMO Final Result from Last 3 Months or Most Recently Relevant to Health Maintenance Insurance [employer] Advance Directives Documents on File Type Date Recorded Patient Urologic Surgeon Expl anation Power of Salesperson Hearing Aids 09/14/2019 9:01 AM Florentino Mock, HCA- significatn Other; Bebe Edwards, 1st alternate HCA-other; Advance Directives and Living Will 09/14/2019 8:57 AM [place]IV[place] DECLARATION Healthcare Agents on File Name Relationship Healthcare Agent Relationship Communication Noel (PO) Nish Significant other Health Care Agen t Bebe Edwards Parents First Alterna te Health Care Agent Care Teams Regulatory Compliance Specialist Relationship Specialty Start Date End Date Lizbeth Boo PA [address] [place] [id number] PCP - General PHYSICIAN UNDERWRITING ASSISTANT 10/13/21 Jeff Garcia MD [address] [place] [address] Consulting Physician INTERVENTIONAL CARDIOLOGY 09/03/19 Kenney Martinez APRN [address] [place] [id number] Nurse Practitioner NURSE PRACTITIONER 09/03/19 Tio Rutledge DO [address] [place], [place] [id number] INTERNAL MEDICINE 05/02/22
--- OUTSIDE RECORDS SUMMARY | 2024-09-25 10:04 | XMS_ITS | Referral Summary ---
Author Organization [facility] Medical Office Building B Address [address] [place] [address] Care Team Providers Care Grinder Gear Name Role Phone Lizbeth Boo Primary Care Provider [phone] Allergies Active Allergy Reactions Criticality Noted Date [...] 05/24/2020 Assessment & Plan (05/24/2020 1:38 PM CONSULTANT EDUCATION): Severe constipation for over 1`0 yrs with occ BRB. Never colonoscoped. Diet devoid of fiber so suggested fruit tid, colonoscopy, and on exam today II- III roids. Desires IRC. Will do screening colonoscopy and IRC. Gastroesophageal reflux disease 05/24/2020 Assessment & Plan (05/24/2020 1:39 PM CONSULTANT EDUCATION): Severe substernal burning to spicy foods getting worse but some relief with pepcid. notye recent onset dysphagia to solids. Will EGD and possibly dil at time of colonoscopy. Encounter for screening colonoscopy 05/24/2020 Overview (05/24/2020): Added automatically from request for surgery [id number] Dysphagia 05/24/2020 Overview (05/24/2020): Added automatically from request for surgery [id number] Other hemorrhoids 05/24/2020 Overview (05/24/2020): Added automatically from request for surgery [id number] Neuroma 02/18/2020 Strain of right hip adductor muscle 01/08/2020 Greater trochanteric bursitis of right hip 12/24 BARRIENTOS (dyspnea on exertion) 09/07/2019 Social History Tobacco Use Types Packs/Day Years Used Date Smoking Tobacco: Former Smokeless Tobacco: Never Alcohol Use Standard Drinks/Week Comments Yes 0 (1 standard drink = 0.6 oz pur e alcohol) SOCIAL Comments Unknown Sex and Gender Information Value Date Recorded Sex Assigned at Not on file Legal Sex Female 1:25 AM CONSULTANT EDUCATION Gender Identity Not on file Sexual Orientation Not on file Last Filed Vital Signs Vital Sign Reading Time Taken Comments Blood Pressure 130/83 06/14/2020 11:46 AM CONSULTANT EDUCATION Pulse 62 06/14/2020 11:46 AM CONSULTANT EDUCATION Temperature 36.6 C (97.8 F) 06/14/2020 11:46 AM CONSULTANT EDUCATION Respiratory Rate 16 06/14/2020 11:46 AM CONSULTANT EDUCATION Oxygen Saturation 100% 06/14/2020 11:46 AM CONSULTANT EDUCATION Inhaled Oxygen Concentration - - Weight 61.2 kg (135 lb) 05/26/2020 3:47 PM CONSULTANT EDUCATION Height 165.1 cm (5' 5 ) 05/26/2020 3:47 PM CONSULTANT EDUCATION Body Mass Index 22.47 05/26/2020 3:47 PM CONSULTANT EDUCATION Plan of Treatment Not on file Procedures Procedure Name Priority Date/Time Associated Diagnosis Comments COLONOSCOPY 06/14/2020 10:33 AM CONSULTANT EDUCATION from Last 3 Months or Most Recently Relevant to Health Maintenance Results * COLONOSCOPY (06/14/2020 10:33 AM CONSULTANT EDUCATION) Anatomical Region Laterality Modality Other Narrative Procedure Note Lobo Little MD - 06/14/2020 10:33 AM CST [facility] Patient Name: Tatiana Baron Procedure Date: 06/14/2020 10:33 AM Date of : 1965 Admit Type: Outpatient Age: 54 Gender: Female Attending MD: Lobo Little M.D. Room: [facility] ENDOSCOPY ROOM 2 Note Status: Finalized Patient [...] scope was passed under direct vision.The Colonoscope [id number] was introducedthrough the anus and advanced to [...] 10:33 AM Procedure Code(s): --- Professional --- 59130, Colonoscopy, flexible; with removal of tumor(s), polyp(s), or other lesion(s) by hot biopsy forceps Diagnosis Code(s): --- Professional --- K62.1, Rectal polyp K64.9, Unspecified hemorrhoids Z12.11, Encounter for screening for malignant neoplasm of colon CPT copyright 2017 [employer]. All rights reserved. The codes documented in this report are preliminary and upon loading dock helper reviewmay be revised to meet current compliance requirements. Recognized by the [place] for promoting quality in endoscopy Lobo Little MD ENDOSCOPY PROCEDURES Final Re sult from Last 3 Months or Most Recently Relevant to Health Maintenance Insurance Advance Directives For more information, please contact: [phone] * Full Code (Latest Code Status on File) Date Activated Date Inactivated Comments 06/14/2020 9:49 AM 06/14/2020 4:08 PM * Full Code Date Activated Date Inactivated Comments 06/14/2020 9:49 AM 06/14/2020 9:49 AM Care Teams Grinder Gear Relationship Specialty Start Date End Date Lizbeth Boo PA [address] [place] [address] PCP - General Emergency Medicine 05/24/20
== END 2024-09-25 09:03 | disposition home or self-care (01) ==
PROVIDERS: PCP Family Medicine; Visit Provider Family Medicine
DX: Z12.31 Encounter for screening mammogram for malignant neoplasm of breast (principal); R92.8 Other abnormal and inconclusive findings on diagnostic imaging of breast
CPT/HCPCS: 77063; 77067

== ENCOUNTER 2024-09-28 09:59 | Outpatient (CLI) | payer OTHER, SELFPAY ==
--- NOTE | ~2024-09-28 | CT_ITS ---
EXAMINATION:CT lung screening DATE: 09/28/2024 10:14 INDICATION: Personal history of nicotine dependence. Current smoker with 43 pack year history. TECHNIQUE: Computed tomography (CT) of the chest was performed without intravenous contrast. Automate d exposure control and iterative reconstruction technique were employed. The dose-length product (DLP ) was 56.73 mGy-cm. COMPARISON: Chest CT 09/26/2023 FINDINGS: There is stable mild scarring at the lung apices. There is mild emphysema. Calcified right lung nodules and calcified right hilar lymph nodes are consistent with old granulomatous disease. The re is a 2 mm nodule in left upper lobe. There is mild atelectasis and mild bronchiectasis in lingula. No pleural effusion. The heart size is normal. There are calcifications in the aortic valve. No keegan cardial effusion. There is mild thoracic spondylosis. Thoracic levoscoliosis is noted. IMPRESSION: 1. Lung-RADS category 2: Benign appearance or behavior. Continue annual screening with noncontrast lo w-dose chest CT in 12 months. Reviewed, dictated and finalized at location A. IMPRESSION: 1. Lung-RADS category 2: Benign appearance or behavior. Continue annual screeni ng with noncontrast low-dose chest CT in 12 months.
--- OUTSIDE RECORDS SUMMARY | 2024-09-28 11:22 | XMS_ITS | Clinical Summary ---
Author Organization [facility] Address [address] [place] [address] Care Team Providers Care Leg Man Name Role Phone Lizbeth Boo Primary Care Provider [phone] Jfef Garcia MD Unavailable [phone] Kenney Martinez TESTER WASTE DISPOSAL LEAKAGE Unavailable [phone] Tio Rutledge DO Unavailable Allergies Active Allergy [...] Documents on File Type Date Recorded Patient Livestock Trucker Expl anation Power of Shoddy Mill Worker 09/14/2019 9:01 AM Florentino Mock, HCA- significatn Other; Bebe Edwards, 1st alternate HCA-other; Advance Directives and Living Will 09/14/2019 8:57 AM [place] DECLARATION Healthcare Agents on File Name Relationship Healthcare Agent Relationship Communication Noel (PO) Nish Significant other Health Care Agen t Bebe Edwards Parents First Alterna te Health Care Agent Care Teams Leg Man Relationship Specialty Start Date End Date Lizbeth Boo PA [address] [place] [id number] PCP - General PHYSICIAN FIELD MARKETING MANAGER 10/13/21 Jeff Garcia MD [address] [place] [address] Consulting Physician INTERVENTIONAL CARDIOLOGY 09/03/19 Kenney Martinez APRN [address] [place] [id number] Nurse Practitioner NURSE PRACTITIONER 09/03/19 Tio Rutledge DO [address] [place], [place] [id number] INTERNAL MEDICINE 05/02/22
--- OUTSIDE RECORDS SUMMARY | 2024-09-28 11:22 | XMS_ITS | Clinical Summary ---
Author Organization [facility] Care Team Providers Care Supervisor Ski Production Name Role Phone Unavailable Primary Care Provider [...]
--- OUTSIDE RECORDS SUMMARY | 2024-09-28 11:22 | XMS_ITS | Encounter Summary ---
Author Organization [facility] Address [address] [place] [address] Care Team Providers Care High Lift Driver Name Role Phone Lizbeth Boo Primary Care Provider + [phone] Lizbeth Boo Primary Care Provider [phone] Lizbeth Boo Unavailable [phone] Jeff Garcia MD Unavailable [phone] Kenney Martinez APRN Unavailable + [phone] Tio Rutledge DO Unavailable Encounter Details Date Type Department Care Team (Late st Contact Info) Description 12/25/2019 [employer] Message Enc [facility] [address] [place] [address], [address] [place] [address] Fernanda Clements, [facility]- [address] [facility] [place] [address] Visit Follow Up Social History Tobacco Use [...] Rule Out 03/03/2021 03/03/2021 05/29/2021 7:41 PM DOCTOR CHIROPRACTIC COVID-19 Rule Out 03/03/2021 03/03/2021 07/27/2021 2:08 PM DOCTOR CHIROPRACTIC documented as of this encounter Care Teams High Lift Driver Relationship Specialty Start Date End Date Lizbeth Boo PA [address] [place] [address] PCP - General PHYSICIAN OVER THE ROAD DRIVER 09/03/19 10/12/21 Lizbeth Boo PA [address] [place] [address] PCP - General PHYSICIAN OVER THE ROAD DRIVER 10/13/21 Lizbeth Boo PA [address] [place] [address] DRIVER 10/13/21 05/01/22 Jeff Garcia MD [address] [place] [address] Consulting Physician INTERVENTIONAL CARDIOLOGY 09/03/19 Kenney Martinez APRN [address] [place] [address] Nurse Practitioner NURSE PRACTITIONER 09/03/19 Tio Rutledge DO [address] [facility] [address] [place] [address] INTERNAL MEDICINE 05/02/22 documented as of this encounter
--- OUTSIDE RECORDS SUMMARY | 2024-09-28 11:22 | XMS_ITS | Referral Summary ---
Author Organization [facility] Address [address] [place] [address] Care Team Providers Care Line Maintenance Technician Name Role Phone Lizbeth Boo Primary Care Provider [phone] Allergies Active Allergy Reactions Criticality Noted Date [...] 05/24/2020 Assessment & Plan (05/24/2020 1:38 PM CODER OPERATOR): Severe constipation for over 1`0 yrs with occ BRB. Never colonoscoped. Diet devoid of fiber so suggested fruit tid, colonoscopy, and on exam today II- III roids. Desires IRC. Will do screening colonoscopy and IRC. Gastroesophageal reflux disease 05/24/2020 Assessment & Plan (05/24/2020 1:39 PM CODER OPERATOR): Severe substernal burning to spicy foods getting worse but some relief with pepcid. notye recent onset dysphagia to solids. Will EGD and possibly dil at time of colonoscopy. Encounter for screening colonoscopy 05/24/2020 Overview (05/24/2020): Added automatically from request for surgery [id number] Dysphagia 05/24/2020 Overview (05/24/2020): Added automatically from request for surgery [id number] Other hemorrhoids 05/24/2020 Overview (05/24/2020): Added automatically from request for surgery [id number] Neuroma 02/18/2020 Strain of right hip adductor [...] on file Legal Sex Female 1:25 AM CODER OPERATOR Gender Identity Not on file Sexual Orientation Not on file Last Filed Vital Signs Vital Sign Reading Time Taken Comments Blood Pressure 130/83 06/14/2020 11:46 AM CODER OPERATOR Pulse 62 06/14/2020 11:46 AM CODER OPERATOR Temperature 36.6 C (97.8 F) 06/14/2020 11:46 AM CODER OPERATOR Respiratory Rate 16 06/14/2020 11:46 AM CODER OPERATOR Oxygen Saturation 100% 06/14/2020 11:46 AM CODER OPERATOR Inhaled Oxygen Concentration - - Weight 61.2 kg (135 lb) 05/26/2020 3:47 PM CODER OPERATOR Height 165.1 cm (5' 5 ) 05/26/2020 3:47 PM CODER OPERATOR Body Mass Index 22.47 05/26/2020 3:47 PM CODER OPERATOR Plan of Treatment Not on file Procedures Procedure Name Priority Date/Time Associated Diagnosis Comments COLONOSCOPY 06/14/2020 10:33 AM CODER OPERATOR from Last 3 Months or Most Recently Relevant to Health Maintenance Results * COLONOSCOPY (06/14/2020 10:33 AM CODER OPERATOR) Anatomical Region Laterality Modality Other Narrative Procedure Note Lobo Little MD - 06/14/2020 10:33 AM CST [facility] Patient Name: Tatiana Baron Procedure Date: 06/14/2020 10:33 AM Date of : 1965 Admit Type: Outpatient Age: 54 Gender: Female Attending MD: Lobo Little M.D. Room: [facility] END[facility] ROOM 2 Note Status: Finalized Patient [...] scope was passed under direct vision.The Colonoscope [id number] was introducedthrough the anus and advanced to [...] 10:33 AM Procedure Code(s): --- Professional --- 33055, Colonoscopy, flexible; with removal of tumor(s), polyp(s), or other lesion(s) by hot biopsy forceps Diagnosis Code(s): --- Professional --- K62.1, Rectal polyp K64.9, Unspecified hemorrhoids Z12.11, Encounter for screening for malignant neoplasm of colon CPT copyright 2017 [employer]. All rights reserved. The codes documented in this report are preliminary and upon typists supervisor reviewmay be revised to meet current compliance requirements. Recognized by the [employer] [employer] for promoting quality in endoscopy Lobo Little MD ENDOSCOPY PROCEDURES Final Re sult from Last 3 Months or Most Recently Relevant to Health Maintenance Insurance Advance Directives For more information, please contact: [phone] * Full Code (Latest Code Status on File) Date Activated Date Inactivated Comments 06/14/2020 9:49 AM 06/14/2020 4:08 PM * Full Code Date Activated Date Inactivated Comments 06/14/2020 9:49 AM 06/14/2020 9:49 AM Care Teams Line Maintenance Technician Relationship Specialty Start Date End Date Lizbeth Boo PA [address] [place] [address] PCP - General Emergency Medicine 05/24/20
--- OUTSIDE RECORDS SUMMARY | 2024-09-28 11:23 | XMS_ITS | Clinical Summary ---
Author Organization [facility] Medical Office Building B Address [address] [place] [address] Care Team Providers Care Associate Professor Of Education Name Role Phone Lizbeth Boo Primary Care Provider [phone] Allergies Active Allergy Reactions Criticality Noted Date [...] 05/24/2020 Assessment & Plan (05/24/2020 1:38 PM BRIQUETTE MAKER): Severe constipation for over 1`0 yrs with occ BRB. Never colonoscoped. Diet devoid of fiber so suggested fruit tid, colonoscopy, and on exam today II- III roids. Desires IRC. Will do screening colonoscopy and IRC. Gastroesophageal reflux disease 05/24/2020 Assessment & Plan (05/24/2020 1:39 PM BRIQUETTE MAKER): Severe substernal burning to spicy foods getting worse but some relief with pepcid. notye recent onset dysphagia to solids. Will EGD and possibly dil at time of colonoscopy. Encounter for screening colonoscopy 05/24/2020 Overview (05/24/2020): Added automatically from request for surgery [id number] Dysphagia 05/24/2020 Overview (05/24/2020): Added automatically from request for surgery [id number] Other hemorrhoids 05/24/2020 Overview (05/24/2020): Added automatically from request for surgery [id number] Neuroma 02/18/2020 Strain of right hip adductor muscle 01/08/2020 Greater trochanteric bursitis of right hip 12/24 BARRIENTOS (dyspnea on exertion) 09/07/2019 Surgical History Surgery Date Site/Laterality Comments SECTION section CARPAL TUNNEL RELEASE TUBAL LIGATION 07/08/1992 - 07/07/1993 [facility] CYST REMOVAL 07/08/2012 - 07/07/2013 PYLENODAL CYST REMOVAL-[facility] CARDIAC SURGERY 07/08/2019 - 07/07/2020 HEART CATH- [facility] COLONOSCOPY 06/14/2020 1st UPPER GASTROINTESTINAL ENDOSCOPY [...] on file Legal Sex Female 1:25 AM BRIQUETTE MAKER Gender Identity Not on file Sexual Orientation Not on file Obstetrics History Last Filed Vital Signs Vital Sign Reading Time Taken Comments Blood Pressure 130/83 06/14/2020 11:46 AM BRIQUETTE MAKER Pulse 62 06/14/2020 11:46 AM BRIQUETTE MAKER Temperature 36.6 C (97.8 F) 06/14/2020 11:46 AM BRIQUETTE MAKER Respiratory Rate 16 06/14/2020 11:46 AM BRIQUETTE MAKER Oxygen Saturation 100% 06/14/2020 11:46 AM BRIQUETTE MAKER Inhaled Oxygen Concentration - - Weight 61.2 kg (135 lb) 05/26/2020 3:47 PM BRIQUETTE MAKER Height 165.1 cm (5' 5 ) 05/26/2020 3:47 PM BRIQUETTE MAKER Body Mass Index 22.47 05/26/2020 3:47 PM BRIQUETTE MAKER Plan of Treatment Health Maintenance Due Date [...] Associated Diagnosis Comments COLONOSCOPY 06/14/2020 10:33 AM BRIQUETTE MAKER from Last 3 Months or Most Recently Relevant to Health Maintenance Results * COLONOSCOPY (06/14/2020 10:33 AM BRIQUETTE MAKER) Anatomical Region Laterality Modality Other Narrative Procedure Note Lobo Little MD - 06/14/2020 10:33 AM CST [facility] Patient Name: Tatiana Baron Procedure Date: 06/14/2020 10:33 AM Date of : 1965 Admit Type: Outpatient Age: 54 Gender: Female Attending MD: Lobo Little M.D. Room: [facility] ENDOSCOPY ROOM 2 Note Status: Finalized Patient [...] scope was passed under direct vision.The Colonoscope CF-[id number] was introducedthrough the anus and advanced to [...] 10:33 AM Procedure Code(s): --- Professional --- 66079, Colonoscopy, flexible; with removal of tumor(s), polyp(s), or other lesion(s) by hot biopsy forceps Diagnosis Code(s): --- Professional --- K62.1, Rectal polyp K64.9, Unspecified hemorrhoids Z12.11, Encounter for screening for malignant neoplasm of colon CPT copyright 2017 [employer]. All rights reserved. The codes documented in this report are preliminary and upon tearer press clipping reviewmay be revised to meet current compliance requirements. Recognized by the [employer] for promoting quality in endoscopy Lobo Little MD ENDOSCOPY PROCEDURES Final Re sult from Last 3 Months or Most Recently Relevant to Health Maintenance Insurance [place] [facility] Advance Directives For more information, please contact: [phone] * Full Code (Latest Code Status on File) Date Activated Date Inactivated Comments 06/14/2020 9:49 AM 06/14/2020 4:08 PM * Full Code Date Activated Date Inactivated Comments 06/14/2020 9:49 AM 06/14/2020 9:49 AM Care Teams Associate Professor Of Education Relationship Specialty Start Date End Date Lizbeth Boo PA [address] [place] [address] PCP - General Emergency Medicine 05/24/20
== END 2024-09-28 10:00 | disposition home or self-care (01) ==
LOC: CHSIMG 10:01
PROVIDERS: PCP Family Medicine; Visit Provider Family Medicine
DX: Z12.2 Encounter for screening for malignant neoplasm of respiratory organs (principal); Z87.891 Personal history of nicotine dependence
CPT/HCPCS: 71271

== ENCOUNTER 2024-11-03 08:47 | Outpatient (CLI) | payer OTHER, SELFPAY ==
--- NOTE | ~2024-11-03 | MR_ITS ---
EXAMINATION: MR shoulder LT wo con DATE: 11/03/2024 09:24 INDICATION: Left upper extremity biceps tendinitis presenting with persistent left shoulder pain desp ite physical therapy following injury one year prior. TECHNIQUE: Magnetic resonance imaging (MRI) of the left shoulder was performed without intravenous co ntrast. Sequences included axial PD-weighted FS FSE, coronal oblique PD-weighted FS FSE, coronal obli que T2-weighted FS FSE, sagittal PD-weighted FS FSE, and sagittal T1-weighted SE. COMPARISON: None. FINDINGS: Coracoacromial arch: The acromion undersurface is curved in morphology (type II). The coracoacromial ligament is normal. M inimal acromioclavicular osteoarthritis. Mild cystic change along the cephalad margin of the acromion along the insertion of the intact appearing acromioclavicular joint capsule. Rotator cuff: Mild to moderate tendinopathy of the distal supraspinatus and anterior infraspinatus tendon. There is a deep partial-thickness articular sided tear at the critical zone of the supraspinatus tendon. This occurs 1 cm from the superior facet footplate involving two thirds of the tendon thickness and measu ring 2.1 cm medial collateral and 1.4 cm AP. Minimal subscapularis tendinopathy without tear. The ter es minor tendon is normal. There is some retraction of the supraspinatus muscle belly with decrease c ross-sectional area with flattened cephalad margin at the level of the spinal glenoid notch but witho ut significant fatty atrophy. At the rotator cuff interval appears be some fraying/partial tear of th e medial side of the coracohumeral ligament component of the biceps vikash sling. Lateral side of the biceps vikash sling along with its humeral attachment remain intact. Biceps tendon, glenoid labrum and glenohumeral cartilage: Long head of the biceps tendon is normal. Likely anatomic variant [place] complex with absent anterosu perior glenoid labrum and thickened cordlike middle glenohumeral ligament. No labral tear. Glenohumer al cartilage is normal. Fluid: Small glenohumeral joint effusion extending into the deep subscapular recess. No loose osteochondral bodies. No increased fluid in the subacromial/subdeltoid bursa to suggest bursitis. Bones: Normal marrow signal with no fracture or pathologic marrow replacing process. There is some cystic ch apple at the greater tuberosity which was present on the prior radiographs and likely related to rotat or cuff disease proceeding the time of injury. IMPRESSION: 1. Small partial thickness articular sided tear of the supraspinatus tendon involving up to two third s of the tendon thickness. 2. Likely partial tear of the medial side of the coracohumeral ligament. Reviewed, dictated and finalized at location B. IMPRESSION: 1. Small partial thickness articular sided tear of the supraspinatus tendon inv olving up to two thirds of the tendon thickness. 2. Likely partial tear of the medial side of the coracohumeral ligament.
--- OUTSIDE RECORDS SUMMARY | 2024-11-03 09:17 | XMS_ITS | Clinical Summary ---
Author Organization [facility] Medical Office Building B Address [address] [place] [address] Care Team Providers Care Welder And Fitter Name Role Phone Lizbeth Boo Primary Care Provider [phone] Allergies Active Allergy Reactions Criticality Noted Date Comments Amoxicillin-Pot Clavulanate Anaphylaxis High 020 Cephalexin Rash Medium 06/13/2020 Naproxen Hives Medium 03/11/2013 Medications hydrOXYzine (VISTARIL) 25 mg capsule Take 1 capsule (25 mg total) by mouth As needed 09/07/2024 Active estradioL (ESTRACE) 2 mg tablet Take 1 tablet (2 mg total) by mouth daily 09/08/2024 Active progesterone (PROMETRIUM) 100 mg capsule Take 1 capsule (100 mg total) by mouth daily 09/08/2024 Active gabapentin (NEURONTIN) 600 mg tablet Take 1 tablet (600 mg total) by mouth As Needed 09/08/2024 Active multivitamin tabletIndicatio ns:Vitamin Deficiency Prevention Take 1 tablet by mouth Active Active Problems Problem Noted Date Diagnosed Date HLD (hyperlipidemia) 05/26/2020 MVP (mitral valve prolapse) 05/26/2020 Blood in stool 05/24/2020 Assessment & Plan (05/24/2020 1:38 PM FLAT FINISHER): Severe constipation for over 1`0 yrs with occ BRB. Never colonoscoped. Diet devoid of fiber so suggested fruit tid, colonoscopy, and on exam today II- III roids. Desires IRC. Will do screening colonoscopy and IRC. Gastroesophageal reflux disease 05/24/2020 Assessment & Plan (05/24/2020 1:39 PM FLAT FINISHER): Severe substernal burning to spicy foods getting worse but some relief with pepcid. notye recent onset dysphagia to solids. Will EGD and possibly dil at time of colonoscopy. Encounter for screening colonoscopy 05/24/2020 Overview (05/24/2020): Added automatically from request for surgery [id number] Dysphagia 05/24/2020 Overview (05/24/2020): Added automatically from request for surgery [id number] Other hemorrhoids 05/24/2020 Overview (05/24/2020): Added automatically from request for surgery [id number] Neuroma 02/18/2020 Strain of right hip adductor muscle 01/08/2020 Greater trochanteric bursitis of right hip 12/24 BARRIENTOS (dyspnea on exertion) 09/07/2019 Encounters Date Type Department Care Team Description 10/23/2024 Telephone [facility] Orthopedics and Sports Medicine [address] [place] [address] [address] [place] [address] Marco A Carrion PA 10/19/2024 Telephone [facility] Orthopedics and Sports Medicine [address] [place] [address] [address] [place] [address] Marco A Carrion PA 10/14/2024 Telephone [facility] Orthopedics and Sports Medicine [address] [place] [address] [address] [place] [address] Marco A Carrion PA 10/08/2024 Telephone [facility] Orthopedics and Sports Medicine [address] [place] [address] [address] [place] [address] Liane Hodgson MA 09/30/2024 3:05 PM CDT Ancillary Procedure [facility] Imaging at [address] [phone] 09/30/2024 3:00 PM CDT Office Visit [facility] Orthopedic [facility] Sports Medicine [address] [place] [phone] Marco A Carrion PA Rotator cuff tendinitis, left (Primary Dx); Biceps tendinitis of left upper extremity 09/30/2024 Orders Only [facility] Orthopedic and Sports Medicine [address] [place] [phone] Marco A Carrion PA Biceps tendinitis of left upper extremity (Primary Dx); Rotator cuff tendinitis, left from Last 3 Months Surgical History Surgery Date Site/Laterality Comments SECTION section CARPAL TUNNEL RELEASE TUBAL LIGATION 07/08/1992 - 07/07/1993 [facility] CYST REMOVAL 07/08/2012 - 07/07/2013 PYLENODAL CYST REMOVAL-[place] CARDIAC SURGERY 07/08/2019 - 07/07/2020 HEART CATH- [facility] COLONOSCOPY 06/14/2020 1st UPPER GASTROINTESTINAL ENDOSCOPY 06/14/2020 [...] Years Used Date Smoking Tobacco: Former Cigarettes Smokeless Tobacco: Never Tobacco Cessation:Counseling Given: Not Answered Alcohol Use Standard Drinks/Week Comments Yes 0 (1 standard drink = 0.6 oz pur e alcohol) SOCIAL AUDIT-C Answer Date Recorded Q1: How often do you have a drink containing alc ohol? Monthly or less 09/30/2024 Q2: How many drinks containi ng alcohol do you have on a typical day when you are drinking? 1 or 2 09/30/2024 Q3: How often do you have si x or more drinks on one occasion? Monthly 09/30/2024 Comments Unknown Sex and Gender Information Value Date Recorded Sex Assigned at Not on file Legal Sex Female 1:25 AM FLAT FINISHER Gender Identity Not on file Sexual Orientation Not on file Obstetrics History Last Filed Vital Signs Vital Sign Reading Time Taken Comments Blood Pressure 121/77 09/30/2024 3:09 PM CDT Pulse 74 09/30/2024 3:09 PM CDT Temperature 36.6 C (97.8 F) 06/14/2020 11:46 AM FLAT FINISHER Respiratory Rate 16 06/14/2020 11:46 AM FLAT FINISHER Oxygen Saturation 100% 06/14/2020 11:46 AM FLAT FINISHER Inhaled Oxygen Concentration - - Weight 55.9 kg (123 lb 3.2 oz) 09/30/2024 3:09 P M CDT Height 165.1 cm (5' 5 ) 09/30/2024 3:09 PM CDT Body Mass Index 20.5 09/30/2024 3:09 PM CDT Plan of Treatment Health Maintenance Due Date Last Done Comments Cervical Cancer Screening 1965 Depression Screening 1965 Hepatitis C Screening 1965 DTaP/Tdap/Td Vaccine (1 - Tdap) 1977 Hepatitis B Screening 1984 Regular Well Visit/Exam 18-64 1984 Zoster Vaccine (1 of 2) 2016 Breast Cancer Screening-Mammogram 09/14/2020 09/15/2019, 09/15/2019 Influenza Vaccine (Season Ended) 2025 Colon Cancer Screening-Colonoscopy 06/14/2030 06/14/2020 Pneumococcal vaccine <65 Aged Out No longer eligible based on patient's age to complete this topic Procedures Procedure Name Priority Date/Time Associated Diagnosis Comments XR SHOULDER LEFT 2 OR MORE VIEWS Schedule Routine, Read Routine (OP Routine) 09/30/2024 3:07 PM CDT Rotator cuff tendinitis, left COLONOSCOPY 06/14/2020 10:33 AM FLAT FINISHER from Last 3 Months or Most Recently Relevant to Health Maintenance Results * XR Shoulder Left 4 Views (09/30/2024 3:07 PM CDT) Anatomical Region Laterality Modality Upper Extremities, Shoulder Left Digi sonny Radiography Narrative 09/30/2024 3:08 PM CDT Four views of the shoulder negative for acute fracture dislocation or osseous lesion. Well-maintained glenohumeral joint space is noted. Mild acromioclavicular joint arthritis noted. A type 1 acromion is noted. Marco A JACOBO IMG XR PROCEDURES Final Res ult * COLONOSCOPY (06/14/2020 10:33 AM FLAT FINISHER) Anatomical Region Laterality Modality Other Narrative Procedure Note Lobo Little MD - 06/14/2020 10:33 AM CST [facility] Patient Name: Tatiana Baron Procedure Date: 06/14/2020 10:33 AM Date of : 1965 Admit Type: Outpatient Age: 54 Gender: Female Attending MD: Lobo Little M.D. Room: [facility] ENDOSCOPY ROOM 2 Note Status: Finalized Patient [...] scope was passed under direct vision.The Colonoscope [id number] was introducedthrough the anus and advanced to [...] 10:33 AM Procedure Code(s): --- Professional --- 16839, Colonoscopy, flexible; with removal of tumor(s), polyp(s), or other lesion(s) by hot biopsy forceps Diagnosis Code(s): --- Professional --- K62.1, Rectal polyp K64.9, Unspecified hemorrhoids Z12.11, Encounter for screening for malignant neoplasm of colon CPT copyright 2017 [employer]. All rights reserved. The codes documented in this report are preliminary and upon formula weigher reviewmay be revised to meet current compliance requirements. Recognized by the [employer] for promoting quality in endoscopy Lobo Little MD ENDOSCOPY PROCEDURES Final Re sult from Last 3 Months or Most Recently Relevant to Health Maintenance Insurance Advance Directives For more information, please contact: [phone] * Full Code (Latest Code Status on File) Date Activated Date Inactivated Comments 06/14/2020 9:49 AM 06/14/2020 4:08 PM * Full Code Date Activated Date Inactivated Comments 06/14/2020 9:49 AM 06/14/2020 9:49 AM Care Teams Welder And Fitter Relationship Specialty Start Date End Date Lizbeth Boo PA [address] [place] [address] PCP - General Emergency Medicine 05/24/20
--- OUTSIDE RECORDS SUMMARY | 2024-11-03 09:17 | XMS_ITS | Clinical Summary ---
Author Organization [facility] Care Team Providers Care Manager International Name Role Phone Unavailable Primary Care Provider [...]
--- OUTSIDE RECORDS SUMMARY | 2024-11-03 09:17 | XMS_ITS | Referral Summary ---
Author Organization [facility] Medical Office Building B Address [address] [place] [address] Care Team Providers Care Manager Sales Support Name Role Phone Lizbeth Boo Primary Care Provider [phone] Encounters Date Type Department Care Team Description 10/23/2024 Telephone [facility] Medical [facility] Orthopedics and Sports Medicine [address] [place] [address] [address] [place] [address] Marco A Carrion PA 10/19/2024 Telephone [facility] Medical [facility] Orthopedics and Sports Medicine [address] [place] [address] [address] [place] [address] Marco A Carrion PA 10/14/2024 Telephone [facility] Orthopedics and Sports Medicine [address] [place] [address] [address] [place] [address] Marco A Carrion PA 10/08/2024 Telephone [facility] Orthopedics and Sports Medicine [address] [place] [address] [address] [place] [address] Liane Hodgson MA 09/30/2024 Orders Only [facility] Medical [facility] Orthopedic and Sports Medicine [address] [place] [phone] Marco A Carrion PA Biceps tendinitis of left upper extremity (Primary Dx); Rotator cuff tendinitis, left 09/30/2024 3:05 PM CDT Ancillary Procedure [facility] Medical Group Imaging at [address] [phone] 09/30/2024 3:00 PM CDT Office Visit [facility] Medical Group Orthopedic and Sports Medicine [address] [place] [phone] Marco A Carrion PA Rotator cuff tendinitis, left (Primary Dx); Biceps tendinitis of left upper extremity from Last 3 Months Allergies Active Allergy Reactions Criticality Noted Date [...] 05/24/2020 Assessment & Plan (05/24/2020 1:38 PM FLOORING PROFESSIONAL): Severe constipation for over 1`0 yrs with occ BRB. Never colonoscoped. Diet devoid of fiber so suggested fruit tid, colonoscopy, and on exam today II- III roids. Desires IRC. Will do screening colonoscopy and IRC. Gastroesophageal reflux disease 05/24/2020 Assessment & Plan (05/24/2020 1:39 PM FLOORING PROFESSIONAL): Severe substernal burning to spicy foods getting worse but some relief with pepcid. notye recent onset dysphagia to solids. Will EGD and possibly dil at time of colonoscopy. Encounter for screening colonoscopy 05/24/2020 Overview (05/24/2020): Added automatically from request for surgery [id number] Dysphagia 05/24/2020 Overview (05/24/2020): Added automatically from request for surgery [id number] Other hemorrhoids 05/24/2020 Overview (05/24/2020): Added automatically from request for surgery [id number] Neuroma 02/18/2020 Strain of right hip adductor [...] on file Legal Sex Female 1:25 AM FLOORING PROFESSIONAL Gender Identity Not on file Sexual Orientation Not on file Last Filed Vital Signs Vital Sign Reading Time Taken Comments Blood Pressure 121/77 09/30/2024 3:09 PM CDT Pulse 74 09/30/2024 3:09 PM CDT Temperature 36.6 C (97.8 F) 06/14/2020 11:46 AM FLOORING PROFESSIONAL Respiratory Rate 16 06/14/2020 11:46 AM FLOORING PROFESSIONAL Oxygen Saturation 100% 06/14/2020 11:46 AM FLOORING PROFESSIONAL Inhaled Oxygen Concentration - - Weight 55.9 kg (123 lb 3.2 oz) 09/30/2024 3:09 P M CDT Height 165.1 cm (5' 5 ) 09/30/2024 3:09 PM CDT Body Mass Index 20.5 09/30/2024 3:09 PM CDT Plan of Treatment Not on file Procedures Procedure Name Priority Date/Time Associated Diagnosis Comments XR SHOULDER LEFT 2 OR MORE VIEWS Schedule Routine, Read Routine (OP Routine) 09/30/2024 3:07 PM CDT Rotator cuff tendinitis, left COLONOSCOPY 06/14/2020 10:33 AM FLOORING PROFESSIONAL from Last 3 Months or Most Recently [...] noted. A type 1 acromion is noted. us Marco A JACOBO IMG XR PROCEDURES Final Res ult * COLONOSCOPY (06/14/2020 10:33 AM FLOORING PROFESSIONAL) Anatomical Region Laterality Modality Other Narrative Procedure Note Lobo Little MD - 06/14/2020 10:33 AM CST [facility] Patient Name: Tatiana Baron Procedure Date: 06/14/2020 10:33 AM Date of : 1965 Admit Type: Outpatient Age: 54 Gender: Female Attending MD: Lobo Little M.D. Room: [facility] ENDOSCOPY ROOM 2 Note Status: Finalized Patient [...] scope was passed under direct vision.The Colonoscope [id number] was introducedthrough the anus and advanced to [...] 10:33 AM Procedure Code(s): --- Professional --- 02078, Colonoscopy, flexible; with removal of tumor(s), polyp(s), or other lesion(s) by hot biopsy forceps Diagnosis Code(s): --- Professional --- K62.1, Rectal polyp K64.9, Unspecified hemorrhoids Z12.11, Encounter for screening for malignant neoplasm of colon CPT copyright 2017 [employer]. All rights reserved. The codes documented in this report are preliminary and upon service station helper reviewmay be revised to meet current compliance requirements. Recognized by the [employer] for promoting quality in endoscopy Lobo Little MD ENDOSCOPY PROCEDURES Final Re sult from Last 3 Months or Most Recently Relevant to Health Maintenance Insurance [facility] Advance Directives For more information, please contact: [phone] * Full Code (Latest Code Status on File) Date Activated Date Inactivated Comments 06/14/2020 9:49 AM 06/14/2020 4:08 PM * Full Code Date Activated Date Inactivated Comments 06/14/2020 9:49 AM 06/14/2020 9:49 AM Care Teams Manager Sales Support Relationship Specialty Start Date End Date Lizbeth Boo PA [address] [place], [place] [phone] PCP - General Emergency Medicine 05/24/20
--- OUTSIDE RECORDS SUMMARY | 2024-11-03 09:17 | XMS_ITS | Clinical Summary ---
Author Organization [facility] Address [address] [place] [address] Care Team Providers Care Machine Stitcher Name Role Phone Lizbeth Boo Primary Care Provider [phone] Jeff Garcia MD Unavailable [phone] Kenney Martinez SAP PORTAL DEVELOPER Unavailable [phone] Tio Rutledge DO Unavailable Allergies Active Allergy [...] Colonoscopy (10 Years) 1965 Annual Physical 1969 Hepatitis C 1984 Hepatitis B Vaccines (1 of 3 - 19+ 3-dose series) 1985 Pneumococcal Vaccine: 50+ Ye ars (1 of 2 - PCV) 1985 Cervical Cancer Screening Pa p with HPV Testing (Age 30 to 64) Every 5 Years 1996 Lung Cancer Screening 2016 Zoster Vaccines (1 of 2) 2016 Mammogram Screening 09/14/2021 09/15/2019 COVID-19 Vaccine (1 - 2023-2 5 season) 2024 Cervical Cancer Screening Pa p Smear [...] Most Recently Relevant to Health Maintenance Insurance [facility] Advance Directives Documents on File Type Date Recorded 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 Expl anation Power of Crew Team Member 09/14/2019 9:01 AM Florentino Mock, [facility]CA- significatn Other; Bebe Edwards, 1st alternate [facility]-other; Advance Directives and Living Will 09/14/2019 8:57 AM [place] DECLARATION Healthcare Agents on File Name Relationship Healthcare Agent Relationship Communication Noel (PO) Nish Significant other Health Care Agen t Bebe Edwards Parents First Alterna te Health Care Agent Care Teams Machine Stitcher Relationship Specialty Start Date End Date Lizbeth Boo PA [address] [place] [id number] PCP - General PHYSICIAN NUCLEAR PHYSICIAN 10/13/21 Jeff Garcia MD [address] [place] [phone] Consulting Physician INTERVENTIONAL CARDIOLOGY 09/03/19 Kenney Martinez APRN [address] [place] [address] Nurse Practitioner NURSE PRACTITIONER 09/03/19 Tio Rutledge DO [address] [place] [address] INTERNAL MEDICINE 05/02/22
--- OUTSIDE RECORDS SUMMARY | 2024-11-03 09:17 | XMS_ITS | Encounter Summary ---
Author Organization [facility] Address [address] [place] [address] Care Team Providers Care Sleeve Setter Lockstitch Name Role Phone Lizbeth Boo Primary Care Provider [phone] Lizbeth Boo Primary Care Provider [phone] Lizbeth Boo Unavailable [phone] Jeff Garcia MD Unavailable [phone] Kenney Martinez APRN Unavailable [phone] Tio Rutledge DO Unavailable Encounter Details Date Type Department Care Team (Late st Contact Info) Description 12/25/2019 [employer] Message Enc [facility] [address] [place] [address], [address] [place] [address] Fernanda Clements, WANT AD SUPERVISOR- [address] [facility] [place] [address] Visit Follow Up Social History Tobacco Use [...] Rule Out 03/03/2021 03/03/2021 05/29/2021 7:41 PM ASSISTANT ACTIVITIES DIRECTOR COVID-19 Rule Out 03/03/2021 03/03/2021 07/27/2021 2:08 PM ASSISTANT ACTIVITIES DIRECTOR documented as of this encounter Care Teams Sleeve Setter Lockstitch Relationship Specialty Start Date End Date Lizbeth Boo PA [address] [place] [address] PCP - General PHYSICIAN SENIOR ACCOUNT EXECUTIVE 09/03/19 10/12/21 Lizbeth Boo PA [address] [id number] PCP - General PHYSICIAN SENIOR ACCOUNT EXECUTIVE 10/13/21 Lizbeth Boo PA [address] [address] PHYSICIAN SENIOR ACCOUNT EXECUTIVE 10/13/21 05/01/22 Jeff Garcia MD [address] [address] Consulting Physician INTERVENTIONAL CARDIOLOGY 09/03/19 Kenney Martinez APRN [address] [address] Nurse Practitioner NURSE PRACTITIONER 09/03/19 Tio Rutledge DO [address] [facility] [address] [place] [address] INTERNAL MEDICINE 05/02/22 documented as of this encounter
== END 2024-11-03 08:48 | disposition home or self-care (01) ==
PROVIDERS: PCP Family Medicine; Visit Provider Physician Assistant
DX: S46.812A Strain of other muscles, fascia and tendons at shoulder and upper arm level, left arm, initial encounter (principal); X58.XXXA Exposure to other specified factors, initial encounter; M75.22 Bicipital tendinitis, left shoulder; M75.82 Other shoulder lesions, left shoulder
CPT/HCPCS: 73221

== ENCOUNTER 2024-11-19 14:20 | Outpatient (CLI) | payer OTHER, SELFPAY ==
--- OUTSIDE RECORDS SUMMARY | 2024-11-19 14:25 | XMS_ITS | Clinical Summary ---
Author Organization [facility] Address [address] [place] [address] Care Team Providers Care Benefit Director Name Role Phone Lizbeth Boo Primary Care Provider [phone] Jeff Garcia MD Unavailable [phone] Kenney Martinez DESULFURIZER HAND Unavailable [phone] Tio Rutledge DO Unavailable Allergies Active Allergy [...] Most Recently Relevant to Health Maintenance Insurance [employer] [employer] Advance Directives Documents on File Type Date Recorded Patient Data Entry Analyst Expl anation Power of Plumber 09/14/2019 9:01 AM Florentino Mock, HCA- significatn Other; Bebe Edwards, 1st alternate HCA-other; Advance Directives and Living Will 09/14/2019 8:57 AM [place] DECLARATION Healthcare Agents on File Name Relationship Healthcare Agent Relationship Communication Noel (PO) Nish Significant other Health Care Agen t Bebe Edwards Parents First Alterna te Health Care Agent Care Teams Benefit Director Relationship Specialty Start Date End Date Lizbeth Boo PA [address] [place] [phone] PCP - General PHYSICIAN HAT SIZER 10/13/21 Jeff Garcia MD [address] [place] [phone] Consulting Physician INTERVENTIONAL CARDIOLOGY 09/03/19 Kenney Martinez APRN [address] [place] [address] Nurse Practitioner NURSE PRACTITIONER 09/03/19 Tio Rutledge DO [address] [place] [address] INTERNAL MEDICINE 05/02/22
--- OUTSIDE RECORDS SUMMARY | 2024-11-19 14:25 | XMS_ITS | Encounter Summary ---
Author Organization [facility] Address [address] [place] [address] Care Team Providers Care Millwright Apprentice Name Role Phone Lizbeth Boo Primary Care Provider [phone] Lizbeth Boo Primary Care Provider [phone] Lizbeth Boo Unavailable [phone] Jfef Garcia MD Unavailable [phone] eKnney Martinez APRN Unavailable [phone] Tio Rutledge DO Unavailable Encounter Details Date Type Department Care Team (Late st Contact Info) Description 12/25/2019 [employer] Message Enc [facility] [address] [place] [address], [address] [place] [address] Fernanda Clements, COMMISSIONING ENGINEER- [address] [facility] [place] [address] Visit Follow Up Social History Tobacco Use [...] Rule Out 03/03/2021 03/03/2021 05/29/2021 7:41 PM PRISON PSYCHIATRIST COVID-19 Rule Out 03/03/2021 03/03/2021 07/27/2021 2:08 PM PRISON PSYCHIATRIST documented as of this encounter Care Teams Millwright Apprentice Relationship Specialty Start Date End Date Lizbeth Boo PA [address] [place] [address] PCP - General PHYSICIAN SKETCH MAKER 09/03/19 10/12/21 Lizbeth Boo PA [address] [address] PCP - General PHYSICIAN SKETCH MAKER 10/13/21 Lizbeth Boo PA [address] [address] PHYSICIAN SKETCH MAKER 10/13/21 05/01/22 Jeff Garcia MD [address] [address] Consulting Physician INTERVENTIONAL CARDIOLOGY 09/03/19 Kenney Martinez APRN [address] [address] Nurse Practitioner NURSE PRACTITIONER 09/03/19 Tio Rutledge DO [address] [facility] [address] [place] [address] INTERNAL MEDICINE 05/02/22 documented as of this encounter
--- OUTSIDE RECORDS SUMMARY | 2024-11-19 14:25 | XMS_ITS | Clinical Summary ---
Author Organization [facility] Care Team Providers Care Beehive Kiln Charcoal Burner Name Role Phone Unavailable Primary Care Provider [...]
--- OUTSIDE RECORDS SUMMARY | 2024-11-19 14:25 | XMS_ITS | Clinical Summary ---
Author Organization [facility] Medical Office Building [address] Address [address] [place] [address] Care Team Providers Care House Shorer Name Role Phone Lizbeth Boo Primary Care Provider [phone] Allergies Active Allergy Reactions Criticality Noted Date [...] 05/24/2020 Assessment & Plan (05/24/2020 1:38 PM INSIDE SALES): Severe constipation for over 1`0 yrs with occ BRB. Never colonoscoped. Diet devoid of fiber so suggested fruit tid, colonoscopy, and on exam today II- III roids. Desires IRC. Will do screening colonoscopy and IRC. Gastroesophageal reflux disease 05/24/2020 Assessment & Plan (05/24/2020 1:39 PM INSIDE SALES): Severe substernal burning to spicy foods getting worse but some relief with pepcid. notye recent onset dysphagia to solids. Will EGD and possibly dil at time of colonoscopy. Encounter for screening colonoscopy 05/24/2020 Overview (05/24/2020): Added automatically from request for surgery [id number] Dysphagia 05/24/2020 Overview (05/24/2020): Added automatically from request for surgery [id number] Other hemorrhoids 05/24/2020 Overview (05/24/2020): Added automatically from request for surgery [id number] Neuroma 02/18/2020 Strain of right hip adductor muscle 01/08/2020 Greater trochanteric bursitis of right hip 12/24 BARRIENTOS (dyspnea on exertion) 09/07/2019 Encounters Date Type Department Care Team Description 11/03/2024 1:20 PM CDT Ancillary Procedure [facility] Films 11/03/2024 Telephone [facility] Medical Group Orthopedic and Sports Medicine [address] [place] [phone] Marco A Carrion PA 10/23/2024 Telephone [facility] Medical Group Orthopedics and Sports Medicine [address] [place] [address] [address] [place] [address] Marco A Carrion PA 10/19/2024 Telephone [facility] Medical Group Orthopedics and Sports Medicine [address] [place] [address] [address] [place] [address] Marco A Carrion PA 10/14/2024 Telephone [facility] Group Orthopedics and Sports Medicine [address] [facility] [address] [place] [address] Marco A Carrion PA 10/08/2024 Telephone [facility] Group Orthopedics and Sports Medicine [address] [place] [address] [address] [place] [address] Liane Hodgson MA 09/30/2024 3:05 PM CDT Ancillary Procedure [facility] Medical Group Imaging at [address] [address] 09/30/2024 3:00 PM CDT Office Visit [facility] Orthopedic and Sports Medicine [address] [place] [phone] Marco A Carrion PA Rotator cuff tendinitis, left (Primary Dx); Biceps tendinitis of left upper extremity 09/30/2024 Orders Only [facility] Orthopedic and Sports Medicine [address] [place] [phone] Marco A Carrion PA Biceps tendinitis of left upper extremity (Primary Dx); Rotator cuff tendinitis, left from Last 3 Months Surgical History Surgery Date Site/Laterality Comments SECTION section CARPAL TUNNEL RELEASE TUBAL LIGATION 07/08/1992 - 07/07/1993 [facility] CYST REMOVAL 07/08/2012 - 07/07/2013 PYLENODAL CYST REMOVAL-NAVARRE CARDIAC SURGERY 07/08/2019 - 07/07/2020 HEART CATH- [facility] COLONOSCOPY 06/14/2020 1st UPPER GASTROINTESTINAL ENDOSCOPY [...] on file Legal Sex Female 1:25 AM INSIDE SALES Gender Identity Not on file Sexual Orientation Not on file Obstetrics History Last Filed Vital Signs Vital Sign Reading Time Taken Comments Blood Pressure 121/77 09/30/2024 3:09 PM CDT Pulse 74 09/30/2024 3:09 PM CDT Temperature 36.6 C (97.8 F) 06/14/2020 11:46 AM INSIDE SALES Respiratory Rate 16 06/14/2020 11:46 AM INSIDE SALES Oxygen Saturation 100% 06/14/2020 11:46 AM INSIDE SALES Inhaled Oxygen Concentration - - Weight 55.9 [...] Procedure Name Priority Date/Time Associated Diagnosis Comments MRI TRANSFER OF OUTSIDE FILMS Routine 11/03/2024 1:19 PM CDT XR SHOULDER LEFT 2 OR MORE VIEWS Schedule Routine, Read Routine (OP Routine) 09/30/2024 3:07 PM CDT Rotator cuff tendinitis, left COLONOSCOPY 06/14/2020 10:33 AM INSIDE SALES from Last 3 Months or Most Recently Relevant to Health Maintenance Results * MRI Outside Reference (11/03/2024 1:19 PM CDT) Narrative [facility] - 11/03/2024 1:19 PM CDT This order has been auto-finalized and does not contain a result. us Not In File Miscellaneous IMG MRI PROCEDURES Fin al Result [facility] * XR Shoulder Left 4 Views (09/30/2024 [...] Res ult * COLONOSCOPY (06/14/2020 10:33 AM INSIDE SALES) Anatomical Region Laterality Modality Other Narrative Procedure Note Lobo Little MD - 06/14/2020 10:33 AM CST [facility] Patient Name: Tatiana Baron Procedure Date: 06/14/2020 10:33 AM Date of : 1965 Admit Type: Outpatient Age: 54 Gender: Female Attending MD: Lobo Little M.D. Room: [facility] ENDOSCOPY ROOM 2 Note Status: Finalized [...] scope was passed under direct vision.The Colonoscope [id number] was introducedthrough the anus and advanced to [...] 10:33 AM Procedure Code(s): --- Professional --- 66233, Colonoscopy, flexible; with removal of tumor(s), polyp(s), or other lesion(s) by hot biopsy forceps Diagnosis Code(s): --- Professional --- K62.1, Rectal polyp K64.9, Unspecified hemorrhoids Z12.11, Encounter for screening for malignant neoplasm of colon CPT copyright 2017 [employer]. All rights reserved. The codes documented in this report are preliminary and upon plate and frame filter operator reviewmay be revised to meet current compliance requirements. Recognized by the [employer] [employer] for promoting quality in endoscopy Lobo Little MD ENDOSCOPY PROCEDURES Final Re sult from Last 3 Months or Most Recently Relevant to Health Maintenance Insurance [facility] Advance Directives For more information, please contact: [phone] * Full Code (Latest Code Status on File) Date Activated Date Inactivated Comments 06/14/2020 9:49 AM 06/14/2020 4:08 PM * Full Code Date Activated Date Inactivated Comments 06/14/2020 9:49 AM 06/14/2020 9:49 AM Care Teams House Shorer Relationship Specialty Start Date End Date Lizbeth Boo PA [address] [place] [id number] PCP - General Emergency Medicine 05/24/20
--- OUTSIDE RECORDS SUMMARY | 2024-11-19 14:25 | XMS_ITS | Referral Summary ---
Author Organization [facility] Medical Office Building B Address [address] [place] [address] Care Team Providers Care Control Operator Name Role Phone Lizbeth Boo Primary Care Provider [phone] Encounters Date Type Department Care Team Description 11/03/2024 Telephone [facility] Orthopedic and Sports Medicine [address] [place] [phone] Marco A Carrion PA 11/03/2024 1:20 PM CDT Ancillary Procedure [facility] Outside Films 10/23/2024 Telephone [facility] Orthopedics and Sports Medicine [address] [place] [address] [address] [place] [address] Marco A Carrion PA 10/19/2024 Telephone [facility] Orthopedics and Sports Medicine [address] [place] [address] [address] [place] [address] Marco A Carrion PA 10/14/2024 Telephone [facility] Orthopedics and Sports Medicine [address] [place] [address] [address] [place] [address] Marco A Carrion PA 10/08/2024 Telephone [facility] Orthopedics and Sports Medicine [address] [place] [address] [address] [place] [address] Liane Hodgson MA 09/30/2024 Orders Only [facility] Orthopedic and Sports Medicine [address] [place] [phone] Marco A Carrion PA Biceps tendinitis of left upper extremity (Primary Dx); Rotator cuff tendinitis, left 09/30/2024 3:05 PM CDT Ancillary Procedure [facility] [place] [address] [place] [phone] 09/30/2024 3:00 PM CDT Office Visit [facility] Orthopedic and Sports Medicine [address] [place] [phone] Marco A Carrion PA Rotator cuff [...] 05/24/2020 Assessment & Plan (05/24/2020 1:38 PM BLANKET WINDER OPERATOR): Severe constipation for over 1`0 yrs with occ BRB. Never colonoscoped. Diet devoid of fiber so suggested fruit tid, colonoscopy, and on exam today II- III roids. Desires IRC. Will do screening colonoscopy and IRC. Gastroesophageal reflux disease 05/24/2020 Assessment & Plan (05/24/2020 1:39 PM BLANKET WINDER OPERATOR): Severe substernal burning to spicy foods getting worse but some relief with pepcid. notye recent onset dysphagia to solids. Will EGD and possibly dil at time of colonoscopy. Encounter for screening colonoscopy 05/24/2020 Overview (05/24/2020): Added automatically from request for surgery [id number] Dysphagia 05/24/2020 Overview (05/24/2020): Added automatically from request for surgery [id number] Other hemorrhoids 05/24/2020 Overview (05/24/2020): Added automatically from request for surgery [id number] Neuroma 02/18/2020 Strain of right hip adductor [...] on file Legal Sex Female 1:25 AM BLANKET WINDER OPERATOR Gender Identity Not on file Sexual Orientation Not on file Last Filed Vital Signs Vital Sign Reading Time Taken Comments Blood Pressure 121/77 09/30/2024 3:09 PM CDT Pulse 74 09/30/2024 3:09 PM CDT Temperature 36.6 C (97.8 F) 06/14/2020 11:46 AM BLANKET WINDER OPERATOR Respiratory Rate 16 06/14/2020 11:46 AM BLANKET WINDER OPERATOR Oxygen Saturation 100% 06/14/2020 11:46 AM BLANKET WINDER OPERATOR Inhaled Oxygen Concentration - - Weight 55.9 [...] cuff tendinitis, left COLONOSCOPY 06/14/2020 10:33 AM BLANKET WINDER OPERATOR from Last 3 Months or Most [...] Res ult * COLONOSCOPY (06/14/2020 10:33 AM BLANKET WINDER OPERATOR) Anatomical Region Laterality Modality Other Narrative Procedure Note Lobo Little MD - 06/14/2020 10:33 AM CST [facility] Patient Name: Tatiana Baron Procedure Date: 06/14/2020 10:33 AM Date of : 1965 Admit Type: Outpatient Age: 54 Gender: Female Attending MD: Lobo Little M.D. Room: [facility] ENDOSCOPY ROOM 2 Note Status: Finalized Patient Profile: Refer to note in patient chart for documentation of history and physical. Procedure: Colonoscopy Indications: This is the patient's first colonoscopy, Screeningfor colorectal malignant neoplasm Referring MD: Lizebth Boo PA-C Providers: Lobo Little M.D. Impression: [...] scope was passed under direct vision.The Colonoscope [id number] was introducedthrough the anus and advanced to [...] 10:33 AM Procedure Code(s): --- Professional --- 32248, Colonoscopy, flexible; with removal of tumor(s), polyp(s), or other lesion(s) by hot biopsy forceps Diagnosis Code(s): --- Professional --- K62.1, Rectal polyp K64.9, Unspecified hemorrhoids Z12.11, Encounter for screening for malignant neoplasm of colon CPT copyright 2017 [employer]. All rights reserved. The codes documented in this report are preliminary and upon tennis court attendant reviewmay be revised to meet current compliance requirements. Recognized by the [employer] for promoting quality in endoscopy Lobo Little MD ENDOSCOPY PROCEDURES Final Re sult from Last 3 Months or Most Recently Relevant to Health Maintenance Insurance Advance Directives For more information, please contact: [phone] * Full Code (Latest Code Status on File) Date Activated Date Inactivated Comments 06/14/2020 9:49 AM 06/14/2020 4:08 PM * Full Code Date Activated Date Inactivated Comments 06/14/2020 9:49 AM 06/14/2020 9:49 AM Care Teams Control Operator Relationship Specialty Start Date End Date Lizbeth Boo PA [address] [place] [address] PCP - General Emergency Medicine 05/24/20
--- NOTE | 2024-11-19 14:30 | ECHO_ITS ---
Patient Info Name: Tatiana Baron Age: 58 years : 1965 Gender: Female Ht: 65 in Wt: 130 lbs BSA: 1.65 m2 HR: 67 bpm BP: 127 / 79 mmHg Technical Quality: Good Exam Date: 11/19/2024 2:40 PM Patient Status: O Admit Date: 11/19/2024 Exam Type: CA echo doppler color flow Complete two-dimensional, color flow and Doppler transthoracic echocardiogram is performed. Vamp Stitcher: Uyen Staples Attending Provider: Tio Rutledge DO Summary 1. Complete two-dimensional, color flow and Doppler transthoracic echocardiogram is performed. 2. Left ventricular chamber dimension is normal. 3. Left ventricular systolic function is normal, estimated at 60-65. 4. There is mild concentric increased left ventricular wall thickness. 5. The left ventricular diastolic function is normal. 6. E/e' 8 is minimally elevated. 7. There is moderate aortic valve sclerosis. 8. There is moderate to severe aortic valve stenosis with a peak velocity of 363 cm/s, mean gradient of 30 mmHg, and aortic valve area of 0.9 cm2. 9. There is trace aortic valve regurgitation. 10. There is trace mitral valve regurgitation. 11. No mitral valve prolapse. 12. There is trace tricuspid valve regurgitation. 13. No pulmonary hypertension, estimated pulmonary arterial systolic pressure is 36 mmHg. Left Ventricle E/e' 8 is minimally elevated. Left ventricular chamber dimension is normal. Left ventricular systolic function is normal, estimated at 60-65. There is mild concentric increased left ventricular wall thickness. The left ventricular diastolic function is normal. Right Ventricle Right ventricular chamber dimension is normal. Right ventricular systolic function is normal and with normal TAPSE 2.1 cm. Left Atria Left atrial chamber dimension is normal. Right Atria Right atrial chamber dimension is normal. Aortic Valve The aortic valve is probable trileaflet. There is moderate aortic valve sclerosis. There is moderate to severe aortic valve stenosis with a peak velocity of 363 cm/s, mean gradient of 30 mmHg, and aortic valve area of 0.9 cm2. There is trace aortic valve regurgitation. Pulmonic Valve There is no pulmonic regurgitation. Mitral Valve There is no mitral valve stenosis. There is trace mitral valve regurgitation. No mitral valve prolapse. Tricuspid Valve There is trace tricuspid valve regurgitation. No pulmonary hypertension, estimated pulmonary arterial systolic pressure is 36 mmHg. Pericardium/Pleural There is no pericardial effusion. Inferior Vena Cava Normal inferior vena cava with >50% collapse upon inspiration consistent with normal right atrial pressure, 5 mmHg. Aorta The aortic root size at the sinus of Valsalva is normal. Left Ventricular Outflow Tract Name Value Normal LVOT 2D LVOT Diameter 2.3 cm LVOT Doppler LVOT Peak Velocity 85 cm/s LVOT Peak Gradient 3 mmHg LVOT Mean Gradient 2 mmHg LVOT VTI 22 cm LVOT VTI/AV VTI Ratio 0.2 LVOT Stroke Volume 92 ml LVOT CO 16.0 l/min LVOT CI 9.7 l/min/m2 Pulmonic Valve Name Value Normal PV Doppler PV Peak Velocity 104 cm/s PV Peak Gradient 4 mmHg Mitral Valve Name Value Normal MV Diastolic Function MV E Peak Velocity 106 cm/s MV A Peak Velocity 67 cm/s MV E/A 1.6 MV Decel Time (PW) 243 ms MV Annular TDI MV E/e' (Septal) 9.0 MV E/e' (Lateral) 8.6 MV E/e' (Average) 8.8 Tricuspid Valve Name Value Normal TV Regurgitation Doppler TR Peak Velocity 279 cm/s TR Peak Gradient 31 mmHg Estimated PAP/RSVP RA Pressure 5 mmHg <=5 PA Systolic Pressure 36 mmHg <36 RV Systolic Pressure 36 mmHg <36 TV Annular TDI TV Lateral Magalis s' Velocity 13.6 cm/s >=9.5 Aorta Name Value Normal Ascending Aorta Ao Root Diameter (MM) 3.1 cm Ao Root Diam Index (MM) 1.9 cm/m2 Aortic Valve Name Value Normal AV Doppler AV Peak Velocity 363 cm/s AV Peak Gradient 52 mmHg AV Mean Gradient 30 mmHg AV VTI 102 cm AV Area (Cont Eq VTI) 0.9 cm2 >=3.0 AV Area (Cont Eq Víctor) 1.0 cm2 AV DI (Víctor) 0.24 AV Regurgitation 2D LVOT Area 4.2 cm2 Ventricles Name Value Normal LV Dimensions 2D/MM IVS Diastolic Thickness (2D) 0.9 cm 0.6-1.0 LVID Diastole (2D) 4.0 cm 3.8-5.2 LVIW Diastolic Thickness (2D) 0.8 cm 0.6-0.9 LVID Systole (2D) 2.8 cm 2.2-3.5 LVOT Diameter 2.3 cm LV Mass (2D Cubed) 102.03 g 67.00-162.00 LV Mass Index (2D Cubed) 62 g/m2 43-95 Relative Wall Thickness (2D) 0.39 <=0.42 LV Fractional Shortening/Ejection Fraction 2D/MM LV Fractional Shortening (2D) 30 % 27-45 LV EF (2D Teichholz) 58 % LV Diastolic Volume (4C MOD) 112 ml LV EF (4C MOD) 56 % LV Diastolic Volume (2C MOD) 112 ml LV EF (2C MOD) 66 % LV Diastolic Volume (BP MOD) 115 ml 46-106 LV Diastolic Volume Index (BP MOD) 70 ml/m2 29-61 LV Systolic Volume (BP MOD) 45 ml 14-42 LV Systolic Volume Index (BP MOD) 27 ml/m2 8-24 LV EF (BP MOD) 61 % 54-74 LV Diastolic Length (4C) 8.8 cm LV Systolic Length (4C) 7.1 cm LV Stroke Volume (4C MOD) 63 ml RV Dimensions 2D/MM RVID Diastole (2D) 3.6 cm 2.1-3.5 Atria Name Value Normal LA Dimensions LA Dimension (MM) 3.2 cm 2.7-3.8 LA Volume (4C A-L) 46 ml LA Volume (BP A-L) 45 ml RA Dimensions RA Systolic Major Jenera Length (4C) 5.4 cm 2.2-2.8 RA Area (4C) 17.7 cm2 <=18.0 Report Signatures
== END 2024-11-19 14:21 | disposition home or self-care (01) ==
LOC: ANHCARD 14:22
PROVIDERS: PCP Family Medicine; Visit Provider Internal Medicine Cardiovascular Disease
DX: I35.0 Nonrheumatic aortic (valve) stenosis (principal); I35.8 Other nonrheumatic aortic valve disorders
CPT/HCPCS: 93306

== ENCOUNTER 2024-11-26 09:54 | Outpatient (CLI) | payer OTHER, SELFPAY ==
--- NOTE | ~2024-11-26 | MMUS_ITS ---
EXAMINATION: US breast RT complete, MM diagnostic [place] RT w ned HISTORY: Palpable lump right breast. TECHNIQUE: Additional 3-D tomosynthesis images of the right breast were performed and synthetic 2-D i mages were generated. CAD analysis was submitted and interpreted. High resolution complete right edward st ultrasound was performed. COMPARISON: Comparison to multiple prior studies sequentially, with oldest reviewed study dated 10/2020. BREAST PARENCHYMAL COMPOSITION: Dense: The breasts are heterogeneously dense, which may obscure small masses FINDINGS: MAMMOGRAPHIC FINDINGS: The right breast is stable. No new masses, calcifications or architectural distortion in the right br east to suggest malignancy. ULTRASOUND: Complete US of all 4 quadrants of the right breast/s and retroareolar region was reviewed. There are multiple cysts of the right breast. In addition, there is an oval hypoechoic 5 mm mass at 12:00, 4 cm from the nipple with internal vascularity, no posterior features, parallel orientation, likely benig n. IMPRESSION: 1. Probable benign right breast mass at 12:00, 4 cm from the nipple measuring 5 mm. 2. Recommend 6 month follow-up Limited right breast ultrasound BI-RADS category 3, probably benign findings. Reviewed, dictated and finalized at location B. IMPRESSION: 1. Probable benign right breast mass at 12:00, 4 cm from the nipple measuring 5 mm. 2. Recommend 6 month follow-up Limited right breast ultrasound BI-RADS category 3, probably benign findings.
--- OUTSIDE RECORDS SUMMARY | 2024-11-26 09:58 | XMS_ITS | Clinical Summary ---
Author Organization [facility] Care Team Providers Care Deburring Machine Operator Name Role Phone Unavailable Primary Care Provider [...]
== END 2024-11-26 09:55 | disposition home or self-care (01) ==
PROVIDERS: PCP Family Medicine; Visit Provider Family Medicine
DX: N63.14 Unspecified lump in the right breast, lower inner quadrant (principal)
CPT/HCPCS: 76641; 77061; 77065; G0279

== ENCOUNTER 2024-12-01 18:11 | Outpatient (CLI) | payer OTHER, SELFPAY ==
[2024-12-01 19:31] LABS: Alanine Aminotransferase 19 U/L (6-35); Albumin Level 3.9 g/dL (3.5-5.1); Alkaline Phosphatase 64 U/L (38-126); Anion Gap 4 mmol/L (4-12); Aspartate Amino Transferase 26 U/L (14-36); Bilirubin,Total 0.7 mg/dL (0.2-1.3); Blood Urea Nitrogen 14 mg/dL (7-17); Carbon Dioxide 25 mmol/L (22-30); Chloride 111 mmol/L (98-107); Cholesterol 225 mg/dL (0-200); Estimated Glomerular Filt Rate > 60; Glucose 91 mg/dL (65-110); HDL Direct 75 mg/dL; LDL Cholesterol Calculated 124 mg/dL (<130); Osmolality Calculated 290 mOsm/kg (285-295); Potassium 3.9 mmol/L (3.4-5.0); Sodium 140 mmol/L (137-145); Total Protein 6.5 g/dL (6.3-8.2); Triglycerides 128 mg/dL (<150)
== END 2024-12-01 18:12 | disposition home or self-care (01) ==
LOC: CHSLAB 18:12
PROVIDERS: PCP Family Medicine; Visit Provider Internal Medicine Cardiovascular Disease
DX: I35.0 Nonrheumatic aortic (valve) stenosis (principal)
CPT/HCPCS: 36415; 80053; 80061

== ENCOUNTER 2025-01-23 12:57 | Emergency (ER) | payer OTHER, SELFPAY ==
--- NOTE | ~2025-01-23 | XR_ITS ---
EXAMINATION: XR chest 2V 01/23/2025 13:37 INDICATION: Chest pain PROCEDURE: 2 view chest COMPARISON: No prior studies for comparison. FINDINGS: The lungs are clear. The cardiomediastinal silhouette is within normal limits. There are no pleural effusions. There is no pneumothorax suspected. IMPRESSION: 1: NO ACUTE CARDIOPULMONARY DISEASE. Reviewed, dictated and finalized at location A.
--- NOTE | 2025-01-23 12:59 | ECG_ITS ---
Test Date: 2025-01-23 13:04:44 Measurements Intervals [place] Rate: 67 P: 73 NV: 158 QRS: 14 QRSD: 84 T: 53 QT: 390 QTc: 413 Interpretive Statements SINUS RHYTHM POOR R-WAVE PROGRESSION NONSPECIFIC T-WAVE ABNORMALITY ABNORMAL ECG No previous ECG available for comparison Electronically Signed On 01-24-2025 08:03:40 CDT by Isaías Champion M.D.
--- OUTSIDE RECORDS SUMMARY | 2025-01-23 12:59 | XMS_ITS ---
Author Organization Unknown Plan of Treatment Description Planned Activity Planned [facility] is a provider organization who partners directly with Health Plans and provides integrated primary care, behavioral health, and social media developer for an attributed population Letter encounter to patientTelephone encounter Dec 31, 2024Jul 2024 Patient Care team information Name Category Status Period Participants - - Proposed period not known -
--- OUTSIDE RECORDS SUMMARY | 2025-01-23 12:59 | XMS_ITS | Clinical Summary ---
Author Organization [facility] Address [address] [place] [address] Care Team Providers Care Vba Developer Name Role Phone Lizbeth Boo Primary Care Provider [phone] Jeff Garcia MD Unavailable [phone] Kenney Martinez ASP NET DEVELOPER Unavailable [phone] Tio Rutledge DO Unavailable Allergies Active Allergy [...] 1:18 PM CDT Height 165.1 cm (5' 5) 01/26/2024 1:18 PM CDT Body Mass Index [...] Most Recently Relevant to Health Maintenance Insurance [employer] Advance Directives Documents on File Type Date Recorded Patient Credit Portfolio Advisor Expl anation Power of Continuous Still Operator 09/14/2019 9:01 AM Florentino Mock, [facility]- significatn Other; Bebe Edwards, 1st alternate [facility]-other; Advance Directives and Living Will 09/14/2019 8:57 AM [place]CLARATION Healthcare Agents on File Name Relationship Healthcare Agent Relationship Communication Noel (PO) Nish Significant other Health Care Agen t Bebe Edwards Parents First Alterna te Health Care Agent Care Teams Vba Developer Relationship Specialty Start Date End Date Lizbeth Boo PA [address] [place] [id number] PCP - General PHYSICIAN LICENSED ESTHETICIAN 10/13/21 Jeff Garcia MD [address] [place] [id number] Consulting Physician INTERVENTIONAL CARDIOLOGY 09/03/19 Kenney Martinez APRN [address] [place] [address] Nurse Practitioner NURSE PRACTITIONER 09/03/19 Tio Rutledge DO [address] [place] [address] INTERNAL MEDICINE 05/02/22
--- OUTSIDE RECORDS SUMMARY | 2025-01-23 12:59 | XMS_ITS | Referral Summary ---
Author Organization [facility] Medical Office Building B Address [address] [place] [address] Care Team Providers Care Franchise Specialist Name Role Phone Lizbeth Boo Primary Care Provider [phone] Encounters Date Type Department Care Team Description 12/18/2024 Telephone [facility] Orthopedic and Sports Medicine [address] [place] [phone] Robi Liao MD 12/18/2024 Orders Only [facility] Medical [facility] Orthopedic and Sports Medicine [address] [place] [phone] Robi Liao MD 12/18/2024 Orders Only [facility] Orthopedic and Sports Medicine [address] [place] [phone] Robi Liao MD S/P arthroscopy of left shoulder (Primary Dx) 12/18/2024 Telephone [facility] Orthopedic and Sports Medicine [address] [place] [phone] Robi Liao MD Surgical Clearance 12/18/2024 9:00 AM CDT Office Visit [facility] Orthopedic and Sports Medicine [address] [place] [phone] Robi Liao MD Traumatic tear of left rotator cuff, unspecified tear extent, initial encounter (Primary Dx); Arthritis of left acromioclavicular joint; Biceps tendinitis of left upper extremity; Impingement syndrome of left shoulder 11/03/2024 Telephone [facility] Orthopedic and Sports Medicine [address] [place] [phone] Marco A Crarion PA 11/03/2024 1:20 PM CDT Ancillary Procedure [facility] Outside Films from Last 3 Months Allergies Active Allergy [...] 05/24/2020 Assessment & Plan (05/24/2020 1:38 PM PRODUCT DEVELOPER): Severe constipation for over 1`0 yrs with occ BRB. Never colonoscoped. Diet devoid of fiber so suggested fruit tid, colonoscopy, and on exam today II- III roids. Desires IRC. Will do screening colonoscopy and IRC. Gastroesophageal reflux disease 05/24/2020 Assessment & Plan (05/24/2020 1:39 PM PRODUCT DEVELOPER): Severe substernal burning to spicy foods getting worse but some relief with pepcid. notye recent onset dysphagia to solids. Will EGD and possibly dil at time of colonoscopy. Encounter for screening colonoscopy 05/24/2020 Overview (05/24/2020): Added automatically from request for surgery [id number] Dysphagia 05/24/2020 Overview (05/24/2020): Added automatically from request for surgery [id number] Other hemorrhoids 05/24/2020 Overview (05/24/2020): Added automatically from request for surgery [id number] Neuroma 02/18/2020 Strain of right hip adductor [...] on file Legal Sex Female 1:25 AM PRODUCT DEVELOPER Gender Identity Not on file Sexual Orientation Not on file Last Filed Vital Signs Vital Sign Reading Time Taken Comments Blood Pressure 122/77 12/18/2024 9:03 AM CDT Pulse 63 12/18/2024 9:03 AM CDT Temperature 36.6 C (97.8 F) 06/14/2020 11:46 AM PRODUCT DEVELOPER Respiratory Rate 16 06/14/2020 11:46 AM PRODUCT DEVELOPER Oxygen Saturation 100% 06/14/2020 11:46 AM PRODUCT DEVELOPER Inhaled Oxygen Concentration - - Weight 60.3 kg (133 lb) 12/18/2024 9:03 AM CDT Height 165.1 cm (5' 5) 12/18/2024 9:03 AM CDT Body Mass Index 22.13 12/18/2024 9:03 AM CDT Plan of Treatment Not on file Procedures Procedure Name Priority Date/Time Associated Diagnosis Comments MRI TRANSFER OF OUTSIDE FILMS Routine 11/03/2024 1:19 PM CDT COLONOSCOPY 06/14/2020 10:33 AM PRODUCT DEVELOPER from Last 3 Months or Most Recently Relevant to Health Maintenance Results * MRI Outside Reference (11/03/2024 1:19 PM CDT) Narrative GAYLA - 11/03/2024 1:19 PM CDT This order has been auto-finalized and does not contain a result. us Not In File Miscellaneous IMG MRI PROCEDURES Fin al Result RAD_PACS_[facility] * COLONOSCOPY (06/14/2020 10:33 AM PRODUCT DEVELOPER) Anatomical Region Laterality Modality Other Narrative Procedure Note Lobo Little MD - 06/14/2020 10:33 AM CST [facility] Patient Name: Tatiana Baron Procedure Date: 06/14/2020 10:33 AM Date of : 1965 Admit Type: Outpatient Age: 54 Gender: Female Attending MD: Lobo Little M.D. Room: [facility] ENDOSCOPY ROOM 2 Note Status: [...] scope was passed under direct vision.The Colonoscope [id number] was introducedthrough the anus and advanced to [...] 10:33 AM Procedure Code(s): --- Professional --- 27882, Colonoscopy, flexible; with removal of tumor(s), polyp(s), or other lesion(s) by hot biopsy forceps Diagnosis Code(s): --- Professional --- K62.1, Rectal polyp K64.9, Unspecified hemorrhoids Z12.11, Encounter for screening for malignant neoplasm of colon CPT copyright 2017 [employer]. All rights reserved. The codes documented in this report are preliminary and upon medical billing coder reviewmay be revised to meet current compliance requirements. Recognized by the [employer] for promoting quality in endoscopy Lobo Little MD ENDOSCOPY PROCEDURES Final Re sult from Last 3 Months or Most Recently Relevant to Health Maintenance Insurance [facility] Advance Directives For more information, please contact: [phone] * Full Code (Latest Code Status on File) Date Activated Date Inactivated Comments 06/14/2020 9:49 AM 06/14/2020 4:08 PM * Full Code Date Activated Date Inactivated Comments 06/14/2020 9:49 AM 06/14/2020 9:49 AM Care Teams Franchise Specialist Relationship Specialty Start Date End Date Lizbeth Boo PA [address] [place] [address] PCP - General Emergency Medicine 05/24/20
--- OUTSIDE RECORDS SUMMARY | 2025-01-23 12:59 | XMS_ITS | Clinical Summary ---
Author Organization [facility] Care Team Providers Care Employment Law Specialist Name Role Phone Unavailable Primary Care Provider [...]
--- OUTSIDE RECORDS SUMMARY | 2025-01-23 12:59 | XMS_ITS | Encounter Summary ---
Author Organization [facility] Address [address] [place] [address] Care Team Providers Care Watch Engine Operator Name Role Phone Lizbeth Boo Primary Care Provider [phone] Lizbeth Boo Primary Care Provider [phone] Lizbeth Boo Unavailable [phone] Jeff Garcia MD Unavailable [phone] Kenney Martinez APRN Unavailable [phone] Tio Rutledge DO Unavailable Encounter Details Date Type Department Care Team (Late st Contact Info) Description 12/25/2019 [employer] Message Enc [facility] [address] [place] [address], [address] [place] [address] Fernanda Clements, [facility] [address] [facility] [place] [address] Visit Follow Up Social History Tobacco Use [...] Rule Out 03/03/2021 03/03/2021 05/29/2021 7:41 PM FIRST DYER COVID-19 Rule Out 03/03/2021 03/03/2021 07/27/2021 2:08 PM FIRST DYER documented as of this encounter Care Teams Watch Engine Operator Relationship Specialty Start Date End Date Lizbeth Boo PA [address] [place] [address] PCP - General PHYSICIAN SINGLE END SEWER 09/03/19 10/12/21 Lizbeth Boo PA [address] [place] [address] PCP - General PHYSICIAN SINGLE END SEWER 10/13/21 Lizbeth Boo PA [address] [place] [address] PHYSICIAN SINGLE END SEWER 10/13/21 05/01/22 Jeff Garcia MD [address] [place] [address] Consulting Physician INTERVENTIONAL CARDIOLOGY 09/03/19 Kenney Martinez APRN [address] [place] [address] Nurse Practitioner NURSE PRACTITIONER 09/03/19 Tio Rutledge DO [address] [facility] [address] [place] [address] INTERNAL MEDICINE 05/02/22 documented as of this encounter
--- OUTSIDE RECORDS SUMMARY | 2025-01-23 12:59 | XMS_ITS | Clinical Summary ---
Author Organization [facility] Medical Office Building B Address [address] [place] [address] Care Team Providers Care Trauma Registrar Name Role Phone Lizbeth Boo Primary Care Provider [phone] Allergies Active Allergy Reactions Criticality Noted Date [...] 05/24/2020 Assessment & Plan (05/24/2020 1:38 PM JACK SPINNER): Severe constipation for over 1`0 yrs with occ BRB. Never colonoscoped. Diet devoid of fiber so suggested fruit tid, colonoscopy, and on exam today II- III roids. Desires IRC. Will do screening colonoscopy and IRC. Gastroesophageal reflux disease 05/24/2020 Assessment & Plan (05/24/2020 1:39 PM JACK SPINNER): Severe substernal burning to spicy foods getting worse but some relief with pepcid. notye recent onset dysphagia to solids. Will EGD and possibly dil at time of colonoscopy. Encounter for screening colonoscopy 05/24/2020 Overview (05/24/2020): Added automatically from request for surgery [id number] Dysphagia 05/24/2020 Overview (05/24/2020): Added automatically from request for surgery [id number] Other hemorrhoids 05/24/2020 Overview (05/24/2020): Added automatically from request for surgery [id number] Neuroma 02/18/2020 Strain of right hip adductor muscle 01/08/2020 Greater trochanteric bursitis of right hip 12/24 BARRIENTOS (dyspnea on exertion) 09/07/2019 Encounters Date Type Department Care Team Description 12/18/2024 9:00 AM CDT Office Visit [facility] Medical [facility] Orthopedic and Sports Medicine [address] [place] [phone] Robi Liao MD Traumatic tear of left rotator cuff, unspecified tear extent, initial encounter (Primary Dx); Arthritis of left acromioclavicular joint; Biceps tendinitis of left upper extremity; Impingement syndrome of left shoulder 12/18/2024 Telephone [facility] Orthopedic and Sports Medicine [address] [place] [phone] Robi Liao MD 12/18/2024 Orders Only [facility] Orthopedic and Sports Medicine [address] [place] [phone] Robi Liao MD 12/18/2024 Orders Only [facility] Orthopedic and Sports Medicine [address] [place] [phone] Robi Liao MD S/P arthroscopy of left shoulder (Primary Dx) 12/18/2024 Telephone [facility] Orthopedic and Sports Medicine [address] [place] [phone] Robi Liao MD Surgical Clearance 11/03/2024 1:20 PM CDT Ancillary Procedure [facility] Outside Films 11/03/2024 Telephone [facility] Orthopedic and Sports Medicine [address] [place] [phone] Marco A Carrion PA from Last 3 Months Surgical History Surgery Date Site/Laterality Comments SECTION section CARPAL TUNNEL RELEASE TUBAL LIGATION 07/08/1992 - 07/07/1993 [facility] CYST REMOVAL 07/08/2012 - 07/07/2013 PYLENODAL CYST REMOVAL-[place] CARDIAC SURGERY 07/08/2019 - 07/07/2020 HEART CATH- [facility] COLONOSCOPY 06/14/2020 1st UPPER GASTROINTESTINAL ENDOSCOPY 06/14/2020 [...] on file Legal Sex Female 1:25 AM JACK SPINNER Gender Identity Not on file Sexual Orientation Not on file Obstetrics History Last Filed Vital Signs Vital Sign Reading Time Taken Comments Blood Pressure 122/77 12/18/2024 9:03 AM CDT Pulse 63 12/18/2024 9:03 AM CDT Temperature 36.6 C (97.8 F) 06/14/2020 11:46 AM JACK SPINNER Respiratory Rate 16 06/14/2020 11:46 AM JACK SPINNER Oxygen Saturation 100% 06/14/2020 11:46 AM JACK SPINNER Inhaled Oxygen Concentration - - Weight 60.3 kg (133 lb) 12/18/2024 9:03 AM CDT Height 165.1 cm (5' 5) 12/18/2024 9:03 AM CDT Body Mass Index 22.13 12/18/2024 9:03 AM CDT Plan of Treatment Health Maintenance Due Date Last Done Comments Cervical Cancer Screening 1965 Depression Screening 1965 Hepatitis C Screening 1966 DTaP/Tdap/Td Vaccine (1 - Tdap) 1977 Hepatitis B Screening 1984 Regular Well Visit/Exam 18-64 1984 Zoster Vaccine (1 of 2) 2016 Breast Cancer Screening-Mammogram 09/14/2020 09/15/2019, 09/15/2019 Influenza Vaccine (#1) 2025 Colon Cancer Screening-Colonoscopy 06/14/2030 06/14/2020 Pneumococcal vaccine <65 Aged Out No longer eligible based on patient's age to complete this topic Procedures Procedure Name Priority Date/Time Associated Diagnosis Comments MRI TRANSFER OF OUTSIDE FILMS Routine 11/03/2024 1:19 PM CDT COLONOSCOPY 06/14/2020 10:33 AM JACK SPINNER from Last 3 Months or Most Recently Relevant to Health Maintenance Results * MRI Outside Reference (11/03/2024 1:19 PM CDT) Narrative [facility] - 11/03/2024 1:19 PM CDT This order has been auto-finalized and does not contain a result. us Not In File Miscellaneous IMG MRI PROCEDURES Fin al Result [facility] * COLONOSCOPY (06/14/2020 10:33 AM JACK SPINNER) Anatomical Region Laterality Modality Other Narrative Procedure Note Lobo Little MD - 06/14/2020 10:33 AM CST [facility] Patient Name: Tatiana Baron Procedure Date: 06/14/2020 10:33 AM Date of : 1965 Admit Type: Outpatient Age: 54 Gender: Female Attending MD: Lobo Little M.D. Room: [facility] ENDOSCOPY ROOM 2 Note Status: Finalized Patient [...] scope was passed under direct vision.The Colonoscope [id number] was introducedthrough the anus and advanced to [...] 10:33 AM Procedure Code(s): --- Professional --- 90970, Colonoscopy, flexible; with removal of tumor(s), polyp(s), or other lesion(s) by hot biopsy forceps Diagnosis Code(s): --- Professional --- K62.1, Rectal polyp K64.9, Unspecified hemorrhoids Z12.11, Encounter for screening for malignant neoplasm of colon CPT copyright 2017 [employer]. All rights reserved. The codes documented in this report are preliminary and upon electron microscopist reviewmay be revised to meet current compliance requirements. Recognized by the [employer] for promoting quality in endoscopy us Lobo Little MD ENDOSCOPY PROCEDURES Final Re sult from Last 3 Months or Most Recently Relevant to Health Maintenance Insurance [facility] Advance Directives For more information, please contact: [phone] * Full Code (Latest Code Status on File) Date Activated Date Inactivated Comments 06/14/2020 9:49 AM 06/14/2020 4:08 PM * Full Code Date Activated Date Inactivated Comments 06/14/2020 9:49 AM 06/14/2020 9:49 AM Care Teams Trauma Registrar Relationship Specialty Start Date End Date Lizbeth Boo PA [address] [place] [address] PCP - General Emergency Medicine 05/24/20
[2025-01-23 13:03] VITALS: BP 157/91; PULSE 70; RESP 16; TEMP 36.5; O2SAT 100
[2025-01-23 13:17] LABS: Hematocrit 39.6 % (37.0-47.0); Hemoglobin 13.5 g/dL (12.0-15.0); Immature Granulocyte Percent A 0.2 % (0-0.5); Lymphocytes Absolute Auto 1.83 K/mm3 (0.9-3.2); Mean Corpuscular HGB Conc 34.1 g/dl (32-36); Mean Corpuscular Hemoglobin 32.2 pg (26-34); Mean Corpuscular Volume 94.5 fl (80-100); Nucleated Red Blood Cells Absolute Auto 0.000 K/mm3 (0.0-0.012); Nucleated Red Blood Cells Perc 0.0 % (0.0-0.2); Platelet Count Result 263 k/mm3 (150-375); Red Blood Count 4.19 M/mm3 (4.2-5.4); White Blood Count 6.4 K/mm3 (4.5-10.0)
[2025-01-23 13:43] LABS: Alanine Aminotransferase 21 U/L (6-35); Albumin Level 4.3 g/dL (3.5-5.1); Alkaline Phosphatase 63 U/L (38-126); Anion Gap 10 mmol/L (4-12); Aspartate Amino Transferase 31 U/L (14-36); Bilirubin,Total 1.4 mg/dL (0.2-1.3); Blood Urea Nitrogen 17 mg/dL (7-17); Calcium 9.8 mg/dL (8.4-10.2); Carbon Dioxide 22 mmol/L (22-30); Chloride 109 mmol/L (98-107); Estimated CRCL calculation 67 ml/min; Estimated Glomerular Filt Rate > 60; Glucose 103 mg/dL (65-110); Lipase 100 U/L (23-300); Potassium 3.9 mmol/L (3.4-5.0); Sodium 141 mmol/L (137-145); Total Protein 7.4 g/dL (6.3-8.2)
[2025-01-23 13:54] LABS: Troponin I < 0.012 ng/mL (0.000-0.034)
[2025-01-23 13:56] LABS: INR 1.0; Prothrombin Time 13.5 Seconds (11.1-14.7)
[2025-01-23 13:57] LABS: Partial Thromboplastin Time 28.3 Seconds (22.3-36.8)
--- NOTE | 2025-01-23 16:13 | ECG_ITS ---
Test Date: 2025-01-23 16:21:10 Measurements Intervals [place] Rate: 56 P: 52 CT: 179 QRS: 11 QRSD: 89 T: 51 QT: 436 QTc: 423 Interpretive Statements SINUS BRADYCARDIA POOR R-WAVE PROGRESSION BORDERLINE ECG Compared to ECG 01/23/2025 13:04:44 NO SIGNIFICANT CHANGE Electronically Signed On 01-24-2025 08:08:36 CDT by Isaías Champion M.D.
[2025-01-23 16:30] VITALS: PULSE 65
[2025-01-23 16:31] VITALS: BP 145/70; PULSE 62; RESP 12; O2SAT 100
[2025-01-23 16:32] VITALS: O2SAT 100
--- OUTSIDE RECORDS SUMMARY | 2025-01-23 16:39 | XMS_ITS ---
Author Organization Unknown Plan of Treatment Description Planned Activity Planned Timing [facility] is a provider organization who partners directly with Health Plans and provides integrated primary care, behavioral health, and protective services social worker for an attributed population Letter encounter to patientTelephone encounter Dec 31, 2024Jul 2024 Patient Care team information Name Category Status Period Participants - - Proposed period not known -
--- OUTSIDE RECORDS SUMMARY | 2025-01-23 16:39 | XMS_ITS | Clinical Summary ---
Author Organization [facility] Care Team Providers Care Reactor Service Operator Name Role Phone Unavailable Primary Care [...]
--- OUTSIDE RECORDS SUMMARY | 2025-01-23 16:39 | XMS_ITS | Encounter Summary ---
Author Organization [facility] Address [address] [place] [address] Care Team Providers Care Line Cook Name Role Phone Lizbeth Boo Primary Care Provider [phone] Lizbeth Boo Primary Care Provider [phone] Lizbeth Boo Unavailable [phone] Jeff Garcia MD Unavailable [phone] Kenney Martinez APRN Unavailable [phone] Tio Rutledge DO Unavailable Encounter Details Date Type Department Care Team (Late st Contact Info) Description 12/25/2019 Mojeek Message Enc [facility] [address] [place] [address], [address] [place] [address] Fernanda Clements, [facility]- [address] [facility] [place] [address] Visit Follow Up Social History Tobacco Use [...] Rule Out 03/03/2021 03/03/2021 05/29/2021 7:41 PM DISPENSING LEAD COVID-19 Rule Out 03/03/2021 03/03/2021 07/27/2021 2:08 PM DISPENSING LEAD documented as of this encounter Care Teams Line Cook Relationship Specialty Start Date End Date Lizbeth Boo PA [address] [place] [address] PCP - General PHYSICIAN AERODYNAMIC CONSULTANT 09/03/19 10/12/21 Lizbeth Boo PA [address] [place] [address] PCP - General PHYSICIAN AERODYNAMIC CONSULTANT 10/13/21 Lizbeth Boo PA [address] [address] PHYSICIAN AERODYNAMIC CONSULTANT 10/13/21 05/01/22 Jeff Garcia MD [address] [address] Consulting Physician INTERVENTIONAL CARDIOLOGY 09/03/19 Kenney Martinez APRN [address] [address] Nurse Practitioner NURSE PRACTITIONER 09/03/19 Tio Rutledge DO [address] [facility] [address] [place] [address] INTERNAL MEDICINE 05/02/22 documented as of this encounter
--- OUTSIDE RECORDS SUMMARY | 2025-01-23 16:39 | XMS_ITS | Clinical Summary ---
Author Organization [facility] Medical Office Building B Address [address] [place] [address] Care Team Providers Care Early Childhood Associate Teacher Name Role Phone Lizbeth Boo Primary Care Provider [phone] Allergies Active Allergy Reactions Criticality Noted Date [...] 05/24/2020 Assessment & Plan (05/24/2020 1:38 PM PHILOSOPHY LECTURER): Severe constipation for over 1`0 yrs with occ BRB. Never colonoscoped. Diet devoid of fiber so suggested fruit tid, colonoscopy, and on exam today II- III roids. Desires IRC. Will do screening colonoscopy and IRC. Gastroesophageal reflux disease 05/24/2020 Assessment & Plan (05/24/2020 1:39 PM PHILOSOPHY LECTURER): Severe substernal burning to spicy foods getting worse but some relief with pepcid. notye recent onset dysphagia to solids. Will EGD and possibly dil at time of colonoscopy. Encounter for screening colonoscopy 05/24/2020 Overview (05/24/2020): Added automatically from request for surgery [id number] Dysphagia 05/24/2020 Overview (05/24/2020): Added automatically from request for surgery [id number] Other hemorrhoids 05/24/2020 Overview (05/24/2020): Added automatically from request for surgery [id number] Neuroma 02/18/2020 Strain of right hip adductor muscle 01/08/2020 Greater trochanteric bursitis of right hip 12/24 BARRIENTOS (dyspnea on exertion) 09/07/2019 Encounters Date Type Department Care Team Description 12/18/2024 9:00 AM CDT Office Visit [facility] Medical [facility] Orthopedic and Sports Medicine [address] [place] [phone] Robi Liao MD Traumatic tear of left rotator cuff, unspecified tear extent, initial encounter (Primary Dx); Arthritis of left acromioclavicular joint; Biceps tendinitis of left upper extremity; Impingement syndrome of left shoulder 12/18/2024 Telephone [facility] Orthopedic and Sports Medicine [address] [place] [phone] Robi Liao MD 12/18/2024 Orders Only [facility] Orthopedic and Sports Medicine [address] [place] [phone] Robi Liao MD 12/18/2024 Orders Only [facility] Orthopedic and Sports Medicine [address] [place] [phone] Robi Liao MD S/P arthroscopy of left shoulder (Primary Dx) 12/18/2024 Telephone [facility] Orthopedic and Sports Medicine [address] [place] [phone] Robi Liao MD Surgical Clearance 11/03/2024 1:20 PM CDT Ancillary Procedure [facility] Outside Films 11/03/2024 Telephone [facility] Orthopedic and Sports Medicine [address] [place] [phone] Marco A Carrion PA from Last 3 Months Surgical History Surgery Date Site/Laterality Comments SECTION section CARPAL TUNNEL RELEASE TUBAL LIGATION 07/08/1992 - 07/07/1993 [facility] CYST REMOVAL 07/08/2012 - 07/07/2013 PYLENODAL CYST REMOVAL-[place] CARDIAC SURGERY 07/08/2019 - 07/07/2020 HEART CATH- [facility] COLONOSCOPY 06/14/2020 1st UPPER GASTROINTESTINAL ENDOSCOPY 06/14/2020 [...] on file Legal Sex Female 1:25 AM PHILOSOPHY LECTURER Gender Identity Not on file Sexual Orientation Not on file Obstetrics History Last Filed Vital Signs Vital Sign Reading Time Taken Comments Blood Pressure 122/77 12/18/2024 9:03 AM CDT Pulse 63 12/18/2024 9:03 AM CDT Temperature 36.6 C (97.8 F) 06/14/2020 11:46 AM PHILOSOPHY LECTURER Respiratory Rate 16 06/14/2020 11:46 AM PHILOSOPHY LECTURER Oxygen Saturation 100% 06/14/2020 11:46 AM PHILOSOPHY LECTURER Inhaled Oxygen Concentration - - Weight 60.3 [...] 1:19 PM CDT COLONOSCOPY 06/14/2020 10:33 AM PHILOSOPHY LECTURER from Last 3 Months or Most Recently Relevant to Health Maintenance Results * MRI Outside Reference (11/03/2024 1:19 PM CDT) Narrative [facility] - 11/03/2024 1:19 PM CDT This order has been auto-finalized and does not contain a result. us Not In File Miscellaneous IMG MRI PROCEDURES Fin al Result [facility]PACS[facility] * COLONOSCOPY (06/14/2020 10:33 AM PHILOSOPHY LECTURER) Anatomical Region Laterality Modality Other Narrative Procedure Note Lobo Little MD - 06/14/2020 10:[address] [facility] Patient Name: Tatiana Baron Procedure Date: 06/14/2020 10:33 AM Date of : 1965 Admit Type: Outpatient Age: 54 Gender: Female Attending MD: Lobo Little M.D. Room: [facility] ENDOSCOPY ROOM 2 Note Status: Finalized [...] scope was passed under direct vision.The Colonoscope [id number] was introducedthrough the anus and advanced to [...] 10:33 AM Procedure Code(s): --- Professional --- 99832, Colonoscopy, flexible; with removal of tumor(s), polyp(s), or other lesion(s) by hot biopsy forceps Diagnosis Code(s): --- Professional --- K62.1, Rectal polyp K64.9, Unspecified hemorrhoids Z12.11, Encounter for screening for malignant neoplasm of colon CPT copyright 2017 [employer]. All rights reserved. The codes documented in this report are preliminary and upon melting supervisor reviewmay be revised to meet current compliance requirements. Recognized by the [employer] for promoting quality in endoscopy us Lobo Little MD ENDOSCOPY PROCEDURES Final Re sult from Last 3 Months or Most Recently Relevant to Health Maintenance Insurance [facility] Advance Directives For more information, please contact: [phone] * Full Code (Latest Code Status on File) Date Activated Date Inactivated Comments 06/14/2020 9:49 AM 06/14/2020 4:08 PM * Full Code Date Activated Date Inactivated Comments 06/14/2020 9:49 AM 06/14/2020 9:49 AM Care Teams Early Childhood Associate Teacher Relationship Specialty Start Date End Date Lizbeth Boo PA [address] [place] [address] PCP - General Emergency Medicine 05/24/20
--- OUTSIDE RECORDS SUMMARY | 2025-01-23 16:39 | XMS_ITS | Clinical Summary ---
Author Organization [facility] Address [address] [place] [address] Care Team Providers Care Sash Sticker Name Role Phone Lizbeth Boo Primary Care Provider [phone] Jeff Garcia MD Unavailable [phone] Kenney Martinez TELEHEALTH COORDINATOR Unavailable [phone] Tio Rutledge DO Unavailable Allergies Active Allergy [...] Most Recently Relevant to Health Maintenance Insurance [facility] Advance Directives Documents on File Type Date Recorded Patient Cpa Tax Expl anation Power of Cyber Defense Incident Responder 09/14/2019 9:01 AM Florentino Mock, [facility]- significatn Other; Bebe Edwards, 1st alternate [facility]-other; Advance Directives and Living Will 09/14/2019 8:57 AM [place]CLARATION Healthcare Agents on File Name Relationship Healthcare Agent Relationship Communication Noel (PO) Nish Significant other Health Care Agen t Bebe Edwards Parents First Alterna te Health Care Agent Care Teams Sash Sticker Relationship Specialty Start Date End Date Lizbeth Boo PA [address] [place] [id number] PCP - General PHYSICIAN CHEMISTRY ASSOCIATE 10/13/21 Jeff Garcia MD [address] [place] [id number] Consulting Physician INTERVENTIONAL CARDIOLOGY 09/03/19 Kenney Martinez APRN [address] [place] [address] Nurse Practitioner NURSE PRACTITIONER 09/03/19 Tio Rutledge DO [address] [place] [address] INTERNAL MEDICINE 05/02/22
--- OUTSIDE RECORDS SUMMARY | 2025-01-23 16:39 | XMS_ITS | Referral Summary ---
Author Organization [facility] Medical Office Building B Address [address] [place] [address] Care Team Providers Care Bartender Manager Name Role Phone Lizbeth Boo Primary Care Provider [phone] Encounters Date Type Department Care Team Description 12/18/2024 Telephone [facility] Orthopedic and Sports Medicine [address] [place] [phone] Robi Liao MD 12/18/2024 Orders Only [facility] Medical [facility] Orthopedic and Sports Medicine [address] [place] [phone] Robi Liao MD 12/18/2024 Orders Only [facility] Orthopedic and Sports Medicine [address] [place] [phone] Robi Liao MD S/P arthroscopy of left shoulder (Primary Dx) 12/18/2024 Telephone [facility] Orthopedic and Sports Medicine [address] [place] [phone] Robi Liao MD Surgical Clearance 12/18/2024 9:00 AM CDT Office Visit [facility] Orthopedic and Sports Medicine [address] [place] [phone] Robi Liao MD Traumatic tear of left rotator cuff, unspecified tear extent, initial encounter (Primary Dx); Arthritis of left acromioclavicular joint; Biceps tendinitis of left upper extremity; Impingement syndrome of left shoulder 11/03/2024 Telephone [facility] Group Orthopedic and Sports Medicine [address] [place] [phone] Marco A Carrion PA 11/03/2024 1:20 [...] 05/24/2020 Assessment & Plan (05/24/2020 1:38 PM SUPERVISOR): Severe constipation for over 1`0 yrs with occ BRB. Never colonoscoped. Diet devoid of fiber so suggested fruit tid, colonoscopy, and on exam today II- III roids. Desires IRC. Will do screening colonoscopy and IRC. Gastroesophageal reflux disease 05/24/2020 Assessment & Plan (05/24/2020 1:39 PM SUPERVISOR): Severe substernal burning to spicy foods getting worse but some relief with pepcid. notye recent onset dysphagia to solids. Will EGD and possibly dil at time of colonoscopy. Encounter for screening colonoscopy 05/24/2020 Overview (05/24/2020): Added automatically from request for surgery [id number] Dysphagia 05/24/2020 Overview (05/24/2020): Added automatically from request for surgery [id number] Other hemorrhoids 05/24/2020 Overview (05/24/2020): Added automatically from request for surgery [id number] Neuroma 02/18/2020 Strain of right hip adductor [...] on file Legal Sex Female 1:25 AM SUPERVISOR Gender Identity Not on file Sexual Orientation Not on file Last Filed Vital Signs Vital Sign Reading Time Taken Comments Blood Pressure 122/77 12/18/2024 9:03 AM CDT Pulse 63 12/18/2024 9:03 AM CDT Temperature 36.6 C (97.8 F) 06/14/2020 11:46 AM SUPERVISOR Respiratory Rate 16 06/14/2020 11:46 AM SUPERVISOR Oxygen Saturation 100% 06/14/2020 11:46 AM SUPERVISOR Inhaled Oxygen Concentration - - Weight 60.3 kg (133 lb) 12/18/2024 9:03 AM CDT Height 165.1 cm (5' 5) 12/18/2024 9:03 AM CDT Body Mass Index 22.13 12/18/2024 9:03 AM CDT Plan of Treatment Not on file Procedures Procedure Name Priority Date/Time Associated Diagnosis Comments MRI TRANSFER OF OUTSIDE FILMS Routine 11/03/2024 1:19 PM CDT COLONOSCOPY 06/14/2020 10:33 AM SUPERVISOR from Last 3 Months or Most Recently Relevant to Health Maintenance Results * MRI Outside Reference (11/03/2024 1:19 PM CDT) Narrative [facility] - 11/03/2024 1:19 PM CDT This order has been auto-finalized and does not contain a result. us Not In File Miscellaneous IMG MRI PROCEDURES Fin al Result [facility] * COLONOSCOPY (06/14/2020 10:33 AM SUPERVISOR) Anatomical Region Laterality Modality Other Narrative Procedure Note Lobo Little MD - 06/14/2020 10:33 AM CST [facility] Patient Name: Tatiana Baron Procedure Date: 06/14/2020 10:33 AM Date of : 1965 Admit Type: Outpatient Age: 54 Gender: Female Attending MD: Lobo Little M.D. Room: [facility] ENDOSCOPY ROOM 2 Note Status: Finalized Patient [...] scope was passed under direct vision.The Colonoscope [id number] was introducedthrough the anus and advanced to [...] 10:33 AM Procedure Code(s): --- Professional --- 05344, Colonoscopy, flexible; with removal of tumor(s), polyp(s), or other lesion(s) by hot biopsy forceps Diagnosis Code(s): --- Professional --- K62.1, Rectal polyp K64.9, Unspecified hemorrhoids Z12.11, Encounter for screening for malignant neoplasm of colon CPT copyright 2017 [employer]. All rights reserved. The codes documented in this report are preliminary and upon certified medical coder reviewmay be revised to meet current compliance requirements. Recognized by the [employer] for promoting quality in endoscopy Lobo Little MD ENDOSCOPY PROCEDURES Final Re sult from Last 3 Months or Most Recently Relevant to Health Maintenance Insurance [facility] Advance Directives For more information, please contact: [phone] * Full Code (Latest Code Status on File) Date Activated Date Inactivated Comments 06/14/2020 9:49 AM 06/14/2020 4:08 PM * Full Code Date Activated Date Inactivated Comments 06/14/2020 9:49 AM 06/14/2020 9:49 AM Care Teams Bartender Manager Relationship Specialty Start Date End Date Lizbeth Boo PA [address] [place] [address] PCP - General Emergency Medicine 05/24/20
[2025-01-23 17:09] LABS: Troponin I < 0.012 ng/mL (0.000-0.034)
--- NOTE | 2025-01-23 17:14 | ED.GENADULT ---
HPI - General Adult General Chief complaint: Chest Pain Stated complaint: chest pain since last night Time Seen by Provider: 01/23/25 16:07 History of Present Illness HPI narrative: 59-year-old female presented to the emergency department for evaluation for reproducible chest wall tenderness to palpation. Patient states yesterday she was pushing her grandchild on a hyonc-dz-gvteg and push them is fast she was go. Patient states she was using her left arm primarily and then began having midsternal chest pain. Patient states the pain has been constant since yesterday. Patient denies any radiation of the pain to her neck back or arms. Patient does have history of aortic stenosis but denies any lightheaded or dizziness. Patient denies any shortness of breath. Patient states the pain is worsened with movement. Patient has history of rotator cuff injury. Patient is a smoker but did recently quit. Patient has history of mitral valve prolapse Related Data Home Medications ?Medication ?Instructions ?Recorded ?Confirmed ?Last Taken ?Type gabapentin 300 mg capsule 600 mg PO QID 10/11/21 12/01/24 Unknown History progesterone micronized 100 mg 100 mg PO DAILY 10/11/21 12/01/24 Unknown History capsule estradiol 2 mg tablet 2 mg PO 09/21/24 12/01/24 Unknown History Allergies Allergy/AdvReac Type Severity Reaction Status Date / Time cephalexin (From Keflex) Allergy Intermediate Hives Verified 01/23/25 13:08 amoxicillin (From Augmentin) Allergy Hives Verified 01/23/25 13:08 azithromycin (From Zithromax) Allergy Hives Verified 01/23/25 13:08 clavulanic acid (From Allergy Hives Verified 01/23/25 13:08 Augmentin) naproxen Allergy Hives Verified 01/23/25 13:08 Review of Systems Review of Systems: All systems reviewed & are unremarkable except as noted in HPI and below PMFSH Social History Social History Social History: smokes marijuana on a regular basis Smoking status: Former smoker Substance use: current Substance use type: marijuana Exam Narrative: APPEARANCE: Well appearing, no pain, no distress, well-nourished. HEAD: normocephalic, atraumatic. EYES: PERRLA/EOMI, conjunctivae clear. NOSE: Normal no drainage EARS:TMS clear with good light reflex. THROAT: Pharynx clear, no exudate. NECK: Supple. No adenopathy, no masses. RESPIRATORY: Airway patent, respirations nonlabored. Clear to auscultation bilaterally, no rales, rhonchi, wheezing. CARDIOVASCULAR: Regular rate and rhythm without murmurs rubs or gallops. ABDOMINAL: Soft, nontender, nondistended, normal bowel sounds MUSCULOSKELETAL: Reproducible chest wall tenderness to palpation NEURO: Alert. Cranial nerves II through XII intact. Good gait. Good coordination SKIN: Warm, dry. Normal Color Course Vital Signs Vital signs: Vital Signs Temperature 97.7 F 01/23/25 13:03 Pulse Rate 70 01/23/25 13:03 Respiratory Rate 16 01/23/25 13:03 Blood Pressure 157/91 H 01/23/25 13:03 Pulse Oximetry 100 01/23/25 13:03 Oxygen Delivery Room Air 01/23/25 13:03 Temperature 97.7 F 01/23/25 13:03 Pulse Rate 81 01/23/25 17:34 Respiratory Rate 16 01/23/25 17:34 Blood Pressure 145/71 H 01/23/25 17:34 Pulse Oximetry 97 01/23/25 17:34 Oxygen Delivery Room Air 01/23/25 16:32 Medical Decision Making [facility] Narrative Medical decision making narrative: 51-year-old female present to the emergency department for evaluation for reproducible chest wall tenderness to palpation has been constant since yesterday. Patient is currently afebrile with leukocytosis hemoglobin 13.5. Patient has a normal INR and no acute abnormalities on her CMP. Patient is to bili was mildly elevated at 1.4. No elevation of AST ALT alk phos. Patient had negative serial troponins. Patient's lipase is not elevated. Chest x-ray shows no acute cardiopulmonary abnormality. EKG shows normal sinus rhythm with no evidence of acute infarction. I do suspect this is most likely related to a muscular skeletal injury. Patient has no history of coronary disease. Patient does have outpatient stress test scheduled on the of this month for preop for a rotator cuff repair. Differential Diagnosis Differential Diagnosis: ACS, chest wall pain, esophagitis, pneumonia, pneumothorax Vital Signs Vital Signs: Vital Signs Temperature 97.7 F 01/23/25 13:03 Pulse Rate 70 01/23/25 13:03 Respiratory Rate 16 01/23/25 13:03 Blood Pressure 157/91 H 01/23/25 13:03 Pulse Oximetry 100 01/23/25 13:03 Oxygen Delivery Room Air 01/23/25 13:03 Temperature 97.7 F 01/23/25 13:03 Pulse Rate 81 01/23/25 17:34 Respiratory Rate 16 01/23/25 17:34 Blood Pressure 145/71 H 01/23/25 17:34 Pulse Oximetry 97 01/23/25 17:34 Oxygen Delivery Room Air 01/23/25 16:32 Lab Data Lab results reviewed: Yes I reviewed the patient's lab results. 01/23/25 13:12 01/23/25 13:12 Labs: Lab Results 01/23/25 01/23/25 Range/Units 13:12 16:28 WBC 6.4 (4.5-10.0) K/mm3 RBC 4.19 L (4.2-5.4) M/mm3 Hgb 13.5 (12.0-15.0) g/dL Hct 39.6 (37.0-47.0) % MCV 94.5 (80-100) fl MCH 32.2 (26-34) pg MCHC 34.1 (32-36) g/dl RDW 12.9 (11.5-14.5) % Plt Count 263 (150-375) k/mm3 MPV 9.2 (7.4-10.4) fl Immature Gran % (Auto) 0.2 (0-0.5) % Neut % (Auto) 62.3 (45.5-73.1) % Lymph % (Auto) 28.6 (18.3-44.2) % Cecil % (Auto) 6.7 (2.6-8.5) % Eos % (Auto) 1.6 (0-4.4) % Baso % (Auto) 0.6 (0.2-1.2) % Lymph # (Auto) 1.83 (0.9-3.2) K/mm3 Cecil # (Auto) 0.4 (0.1-0.6) K/mm3 Eos # (Auto) 0.1 (0-0.3) K/mm3 Baso # (Auto) 0.0 (0.0-0.1) K/mm3 Abs Immat Gran (auto) 0.01 (0.00-0.031) K/mm3 Absolute Neuts (auto) 4.0 (1.3-6.7) K/mm3 Absolute Nucleated RBC 0.000 (0.0-0.012) K/mm3 Nucleated RBC % 0.0 (0.0-0.2) % PT 13.5 (11.1-14.7) Seconds INR 1.0 APTT 28.3 (22.3-36.8) Seconds Sodium 141 (137-145) mmol/L Potassium 3.9 (3.4-5.0) mmol/L Chloride 109 H (98-107) mmol/L Carbon Dioxide 22 (22-30) mmol/L Anion Gap 10 (4-12) mmol/L BUN 17 (7-17) mg/dL Creatinine 0.71 (0.7-1.0) mg/dL Estim Creat Clear Calc 67 ml/min Estimated GFR > 60 (59 - ) Glucose 103 (65-110) mg/dL Calcium 9.8 (8.4-10.2) mg/dL Total Bilirubin 1.4 H (0.2-1.3) mg/dL AST 31 (14-36) U/L ALT 21 (6-35) U/L Alkaline Phosphatase 63 (38-126) U/L Troponin I < 0.012 < 0.012 (0.000-0.034) ng/mL Total Protein 7.4 (6.3-8.2) g/dL Albumin 4.3 (3.5-5.1) g/dL Lipase 100 (23-300) U/L Imaging Data Radiologist's impression: Impressions Chest X-Ray 01/23/25 13:46 IMPRESSION: 1: NO ACUTE CARDIOPULMONARY DISEASE. Discharge Plan Discharge Clinical Impression: Acute chest wall pain Patient Disposition: Home Condition: Stable Instructions: Antibiotic Form, Chest Wall Pain (ED) Additional Instructions: Your cardiac workup was negative. Continue to have the scheduled outpatient stress test. If you have any worsening symptoms then please call or return to the emergency department. Patient Language: Bangladeshi Prescriptions: New cyclobenzaprine 10 mg tablet 10 mg PO BID PRN (Reason: muscle spasm) Qty: 14 0RF No Action gabapentin 300 mg capsule 600 mg PO QID progesterone micronized 100 mg capsule 100 mg PO DAILY estradiol 2 mg tablet 2 mg PO Follow-up/Referrals: PHYSICIAN NOT ON STAFF,NONSTAFF [Primary Care Provider] - Quality HEART score for chest pain patients History: slightly suspicious ECG: normal Age: > 45 and < 65 years Risk factors: 1 or 2 risk factors Troponin: < or = to 1x normal limit Heart score: 2
[2025-01-23 17:34] VITALS: BP 145/71; PULSE 81; RESP 16; O2SAT 97
== END 2025-01-23 17:34 | disposition home or self-care (01) ==
PROVIDERS: Emergency Provider Emergency Medicine
DX: R07.89 Other chest pain (principal); I34.1 Nonrheumatic mitral (valve) prolapse; I35.0 Nonrheumatic aortic (valve) stenosis; Z87.891 Personal history of nicotine dependence; R94.31 Abnormal electrocardiogram [ECG] [EKG]; R00.1 Bradycardia, unspecified
CPT/HCPCS: 36415; 71046; 80053; 83690; 84484; 85025; 85610; 85730; 93005; 99284

== ENCOUNTER 2025-01-25 16:22 | Outpatient (CLI) | payer OTHER, SELFPAY ==
--- NOTE | ~2025-01-25 | CT_ITS ---
EXAMINATION: CT abdomen pelvis wo con DATE: 01/25/2025 16:42 INDICATION: abdominal pain TECHNIQUE: Computed tomography (CT) of the abdomen and pelvis was performed without intravenous contr ast. Automated exposure control and iterative reconstruction technique were employed. The dose-length product was 175.20 mGy-cm. COMPARISON: 10/06/2023, 10/01/2020. FINDINGS: Lower thorax: Calcified right lower lobe hamartoma/granuloma. Liver: Normal. Biliary/Gallbladder: Gallbladder is normal. No bile duct dilation. Pancreas: No mass or duct dilation. Spleen: Normal. Adrenals:Unchanged 1.3 cm left adrenal nodule. Kidneys: No suspicious mass, obstructing stone, or hydronephrosis. Normal right adrenal. Multiple lef t renal calculi measuring up to 9 mm. GI tract: No small or large bowel dilation. Normal appendix. Mesentery/Peritoneum: No ascites, mass, or free air. Retroperitoneum: No mass. Atherosclerotic calcifications of intra-abdominal arterial vessels. Pelvis: 5.0 cm exophytic right lower uterine segment mass, likely fibroid. Uterus otherwise normal. N ormal bilateral ovaries. Mostly empty urinary bladder which limits evaluation. Soft Tissues: Small fat-containing uncomplicated appearing umbilical hernia. Bones: No acute osseous finding. IMPRESSION: No acute abdominopelvic process detected. Stable 1.3 cm left adrenal nodule, likely adenoma. Stable left nephrolithiasis. Exophytic uterine fibroid. Reviewed, dictated and finalized at location K.
--- OUTSIDE RECORDS SUMMARY | 2025-01-25 16:25 | XMS_ITS | Referral Summary ---
Author Organization [facility] Address [address] [place] [address] Care Team Providers Care Special Agent Fbi Name Role Phone Lizbeth Boo Primary Care Provider [phone] Encounters Date Type Department Care Team Description 12/18/2024 Telephone [facility] Orthopedic and Sports Medicine [address] [place] [phone] Robi Liao MD 12/18/2024 Orders Only [facility] Medical [facility] Orthopedic and Sports Medicine [address] [place] [phone] Robi Liao MD 12/18/2024 Orders Only [facility] Orthopedic and Sports Medicine [address] [place] [phone] Robi Liao MD S/P arthroscopy of left shoulder (Primary Dx) 12/18/2024 Telephone [facility] Orthopedic and Sports Medicine [address] [place] [phone] Robi Liao MD Surgical Clearance 12/18/2024 9:00 AM CDT Office Visit [facility] Orthopedic and Sports Medicine [address] [place] [phone] Robi Liao MD Traumatic tear of left rotator cuff, unspecified tear extent, initial encounter (Primary Dx); Arthritis of left acromioclavicular joint; Biceps tendinitis of left upper extremity; Impingement syndrome of left shoulder 11/03/2024 Telephone [facility] Orthopedic and Sports Medicine [address] [place] [phone] Marco A Carrion PA 11/03/2024 1:20 [...] 05/24/2020 Assessment & Plan (05/24/2020 1:38 PM WASTE TREATMENT OPERATOR): Severe constipation for over 1`0 yrs with occ BRB. Never colonoscoped. Diet devoid of fiber so suggested fruit tid, colonoscopy, and on exam today II- III roids. Desires IRC. Will do screening colonoscopy and IRC. Gastroesophageal reflux disease 05/24/2020 Assessment & Plan (05/24/2020 1:39 PM WASTE TREATMENT OPERATOR): Severe substernal burning to spicy foods getting worse but some relief with pepcid. notye recent onset dysphagia to solids. Will EGD and possibly dil at time of colonoscopy. Encounter for screening colonoscopy 05/24/2020 Overview (05/24/2020): Added automatically from request for surgery [id number] Dysphagia 05/24/2020 Overview (05/24/2020): Added automatically from request for surgery [id number] Other hemorrhoids 05/24/2020 Overview (05/24/2020): Added automatically from request for surgery [id number] Neuroma 02/18/2020 Strain of right hip adductor [...] on file Legal Sex Female 1:25 AM WASTE TREATMENT OPERATOR Gender Identity Not on file Sexual Orientation Not on file Last Filed Vital Signs Vital Sign Reading Time Taken Comments Blood Pressure 122/77 12/18/2024 9:03 AM CDT Pulse 63 12/18/2024 9:03 AM CDT Temperature 36.6 C (97.8 F) 06/14/2020 11:46 AM WASTE TREATMENT OPERATOR Respiratory Rate 16 06/14/2020 11:46 AM WASTE TREATMENT OPERATOR Oxygen Saturation 100% 06/14/2020 11:46 AM WASTE TREATMENT OPERATOR Inhaled Oxygen Concentration - - Weight 60.3 kg (133 lb) 12/18/2024 9:03 AM CDT Height 165.1 cm (5' 5) 12/18/2024 9:03 AM CDT Body Mass Index 22.13 12/18/2024 9:03 AM CDT Plan of Treatment Not on file Procedures Procedure Name Priority Date/Time Associated Diagnosis Comments MRI TRANSFER OF OUTSIDE FILMS Routine 11/03/2024 1:19 PM CDT COLONOSCOPY 06/14/2020 10:33 AM WASTE TREATMENT OPERATOR from Last 3 Months or Most Recently Relevant to Health Maintenance Results * MRI Outside Reference (11/03/2024 1:19 PM CDT) Narrative GAYLA - 11/03/2024 1:19 PM CDT This order has been auto-finalized and does not contain a result. us Not In File Miscellaneous IMG MRI PROCEDURES Fin al Result RAD_PACS_[facility] * COLONOSCOPY (06/14/2020 10:33 AM WASTE TREATMENT OPERATOR) Anatomical Region Laterality Modality Other Narrative Procedure Note Lobo iLttle MD - 06/14/2020 10:33 AM CST [facility] Patient Name: Tatiana Baron Procedure Date: 06/14/2020 10:33 AM Date of : 1965 Admit Type: Outpatient Age: 54 Gender: Female Attending MD: Lobo Little M.D. Room: [facility] ENDOSCOPY ROOM 2 Note Status: [...] scope was passed under direct vision.The Colonoscope [id number] was introducedthrough the anus and advanced to [...] 10:33 AM Procedure Code(s): --- Professional --- 46173, Colonoscopy, flexible; with removal of tumor(s), polyp(s), or other lesion(s) by hot biopsy forceps Diagnosis Code(s): --- Professional --- K62.1, Rectal polyp K64.9, Unspecified hemorrhoids Z12.11, Encounter for screening for malignant neoplasm of colon CPT copyright 2017 [employer]. All rights reserved. The codes documented in this report are preliminary and upon grey percher reviewmay be revised to meet current compliance requirements. Recognized by the [employer] for promoting quality in endoscopy Lobo Little MD ENDOSCOPY PROCEDURES Final Re sult from Last 3 Months or Most Recently Relevant to Health Maintenance Insurance [facility] Advance Directives For more information, please contact: [phone] * Full Code (Latest Code Status on File) Date Activated Date Inactivated Comments 06/14/2020 9:49 AM 06/14/2020 4:08 PM * Full Code Date Activated Date Inactivated Comments 06/14/2020 9:49 AM 06/14/2020 9:49 AM Care Teams Special Agent Fbi Relationship Specialty Start Date End Date Lizbeth Boo PA [address] [place] [address] PCP - General Emergency Medicine 05/24/20
--- OUTSIDE RECORDS SUMMARY | 2025-01-25 16:25 | XMS_ITS | Encounter Summary ---
Author Organization [facility] Address [address] [place] [address] Care Team Providers Care Clinical Courier Name Role Phone Lizbeth Boo Primary Care Provider [phone] Lizbeth Boo Primary Care Provider [phone] Lizbeth Boo Unavailable [phone] Jeff Garcia MD Unavailable [phone] Kenney Martinez APRN Unavailable [phone] Tio Rutledge DO Unavailable Encounter Details Date Type Department Care Team (Late st Contact Info) Description 12/25/2019 [employer] Message Enc [facility] [address] [place] [address], [address] [place] [address] Fernanda Clements, [facility] [address] [facility] [place] [address] Visit Follow Up Social History Tobacco Use [...] Rule Out 03/03/2021 03/03/2021 05/29/2021 7:41 PM LOCKSTITCH BINDER COVID-19 Rule Out 03/03/2021 03/03/2021 07/27/2021 2:08 PM LOCKSTITCH BINDER documented as of this encounter Care Teams Clinical Courier Relationship Specialty Start Date End Date Lizbeth Boo PA [address] [place] [address] PCP - General PHYSICIAN MACHINE CAPTAIN 09/03/19 10/12/21 Lizbeth Boo PA [address] [place] [address] PCP - General PHYSICIAN MACHINE CAPTAIN 10/13/21 Lizbeth Boo PA [address] [address] PHYSICIAN MACHINE CAPTAIN 10/13/21 05/01/22 Jeff Garcia MD [address] [address] Consulting Physician INTERVENTIONAL CARDIOLOGY 09/03/19 Kenney Martinez APRN [address] [place] [address] Nurse Practitioner NURSE PRACTITIONER 09/03/19 Tio Rutledge DO [address] [facility] [address] [place] [address] INTERNAL MEDICINE 05/02/22 documented as of this encounter
--- OUTSIDE RECORDS SUMMARY | 2025-01-25 16:25 | XMS_ITS | Clinical Summary ---
Author Organization [facility] Medical Office Building [facility] Address [address] [place] [address] Care Team Providers Care Human Resources Operations Coordinator Name Role Phone Lizbeth Boo Primary Care Provider [phone] Allergies Active Allergy Reactions Criticality Noted Date [...] 05/24/2020 Assessment & Plan (05/24/2020 1:38 PM SALES REPRESENTATIVE UNIFORMS): Severe constipation for over 1`0 yrs with occ BRB. Never colonoscoped. Diet devoid of fiber so suggested fruit tid, colonoscopy, and on exam today II- III roids. Desires IRC. Will do screening colonoscopy and IRC. Gastroesophageal reflux disease 05/24/2020 Assessment & Plan (05/24/2020 1:39 PM SALES REPRESENTATIVE UNIFORMS): Severe substernal burning to spicy foods getting worse but some relief with pepcid. notye recent onset dysphagia to solids. Will EGD and possibly dil at time of colonoscopy. Encounter for screening colonoscopy 05/24/2020 Overview (05/24/2020): Added automatically from request for surgery [id number] Dysphagia 05/24/2020 Overview (05/24/2020): Added automatically from request for surgery [id number] Other hemorrhoids 05/24/2020 Overview (05/24/2020): Added automatically from request for surgery [id number] Neuroma 02/18/2020 Strain of right hip adductor muscle 01/08/2020 Greater trochanteric bursitis of right hip 12/24 BARRIENTOS (dyspnea on exertion) 09/07/2019 Encounters Date Type Department Care Team Description 12/18/2024 9:00 AM CDT Office Visit [facility] Medical [facility] Orthopedic and Sports Medicine [address] [place] [phone] Robi Liao MD Traumatic tear of left rotator cuff, unspecified tear extent, initial encounter (Primary Dx); Arthritis of left acromioclavicular joint; Biceps tendinitis of left upper extremity; Impingement syndrome of left shoulder 12/18/2024 Telephone [facility] Orthopedic and Sports Medicine [address] [place] [phone] Robi Liao MD 12/18/2024 Orders Only [facility] Orthopedic and Sports Medicine [address] [place] [phone] Robi Liao MD 12/18/2024 Orders Only [facility] Orthopedic and Sports Medicine [address] [place] [phone] Robi Liao MD S/P arthroscopy of left shoulder (Primary Dx) 12/18/2024 Telephone [facility] Orthopedic and Sports Medicine [address] [place] [phone] Robi Liao MD Surgical Clearance 11/03/2024 1:20 PM CDT Ancillary Procedure [facility] Outside Films 11/03/2024 Telephone [facility] Orthopedic and Sports Medicine [address] [place] [phone] Marco A Carrion PA from Last 3 Months Surgical History Surgery Date Site/Laterality Comments SECTION section CARPAL TUNNEL RELEASE TUBAL LIGATION 07/08/1992 - 07/07/1993 [facility] CYST REMOVAL 07/08/2012 - 07/07/2013 PYLENODAL CYST REMOVAL-[place] CARDIAC SURGERY 07/08/2019 - 07/07/2020 HEART CATH- [facility] COLONOSCOPY 06/14/2020 1st UPPER GASTROINTESTINAL [...] on file Legal Sex Female 1:25 AM SALES REPRESENTATIVE UNIFORMS Gender Identity Not on file Sexual Orientation Not on file Obstetrics History Last Filed Vital Signs Vital Sign Reading Time Taken Comments Blood Pressure 122/77 12/18/2024 9:03 AM CDT Pulse 63 12/18/2024 9:03 AM CDT Temperature 36.6 C (97.8 F) 06/14/2020 11:46 AM SALES REPRESENTATIVE UNIFORMS Respiratory Rate 16 06/14/2020 11:46 AM SALES REPRESENTATIVE UNIFORMS Oxygen Saturation 100% 06/14/2020 11:46 AM SALES REPRESENTATIVE UNIFORMS Inhaled Oxygen Concentration - - Weight 60.3 [...] 1:19 PM CDT COLONOSCOPY 06/14/2020 10:33 AM SALES REPRESENTATIVE UNIFORMS from Last 3 Months or Most Recently Relevant to Health Maintenance Results * MRI Outside Reference (11/03/2024 1:19 PM CDT) Narrative [facility] - 11/03/2024 1:19 PM CDT This order has been auto-finalized and does not contain a result. us Not In File Miscellaneous IMG MRI PROCEDURES Fin al Result RAD_PACS[facility] * COLONOSCOPY (06/14/2020 10:33 AM SALES REPRESENTATIVE UNIFORMS) Anatomical Region Laterality Modality Other Narrative Procedure Note Lobo Little MD - 06/14/2020 10:33 AM CST [facility] Patient Name: Tatiana Baron Procedure Date: 06/14/2020 10:33 AM Date of : 1965 Admit Type: Outpatient Age: 54 Gender: Female Attending MD: Lobo Little M.D. Room: [facility] ENDOSCOPY ROOM 2 Note Status: [...] scope was passed under direct vision.The Colonoscope [id number] was introducedthrough the anus and advanced to [...] 10:33 AM Procedure Code(s): --- Professional --- 23082, Colonoscopy, flexible; with removal of tumor(s), polyp(s), or other lesion(s) by hot biopsy forceps Diagnosis Code(s): --- Professional --- K62.1, Rectal polyp K64.9, Unspecified hemorrhoids Z12.11, Encounter for screening for malignant neoplasm of colon CPT copyright 2017 [employer]. All rights reserved. The codes documented in this report are preliminary and upon supervisor briar shop reviewmay be revised to meet current compliance requirements. Recognized by the [employer] for promoting quality in endoscopy us Lobo Little MD ENDOSCOPY PROCEDURES Final Re sult from Last 3 Months or Most Recently Relevant to Health Maintenance Insurance [facility] Advance Directives For more information, please contact: [phone] * Full Code (Latest Code Status on File) Date Activated Date Inactivated Comments 06/14/2020 9:49 AM 06/14/2020 4:08 PM * Full Code Date Activated Date Inactivated Comments 06/14/2020 9:49 AM 06/14/2020 9:49 AM Care Teams Human Resources Operations Coordinator Relationship Specialty Start Date End Date Lizbeth Boo PA [address] [place] [address] PCP - General Emergency Medicine 05/24/20
--- OUTSIDE RECORDS SUMMARY | 2025-01-25 16:25 | XMS_ITS | Clinical Summary ---
Author Organization [facility] Address [address] [place] [address] Care Team Providers Care Bandoleer Straightener Stamper Name Role Phone Lizbeth Boo Primary Care Provider [phone] Jeff Garcia MD Unavailable [phone] Kenney Martinez DRAIN CLEANER Unavailable [phone] Tio Rutledge DO Unavailable Allergies Active Allergy [...] Most Recently Relevant to Health Maintenance Insurance [facility] Advance Directives Documents on File Type Date Recorded Patient Senior Teller Expl anation Power of Acid Pumper 09/14/2019 9:01 AM Florentino Mock, [facility]- significatn Other; Bebe Edwards, 1st alternate [facility]-other; Advance Directives and Living Will 09/14/2019 8:57 AM [place]CLARATION Healthcare Agents on File Name Relationship Healthcare Agent Relationship Communication Noel (PO) Nish Significant other Health Care Agen t Bebe Edwards Parents First Alterna te Health Care Agent Care Teams Bandoleer Straightener Stamper Relationship Specialty Start Date End Date Lizbeth Boo PA [address] [place] [id number] PCP - General PHYSICIAN SIGN WRITER HAND 10/13/21 Jeff Garcia MD [address] [place] [id number] Consulting Physician INTERVENTIONAL CARDIOLOGY 09/03/19 Kenney Martinez APRN [address] [place] [address] Nurse Practitioner NURSE PRACTITIONER 09/03/19 Tio Rutledge DO [address] [place] [address] INTERNAL MEDICINE 05/02/22
--- OUTSIDE RECORDS SUMMARY | 2025-01-25 16:25 | XMS_ITS | Clinical Summary ---
Author Organization [facility] Care Team Providers Care Rehab Liaison Name Role Phone Unavailable Primary Care Provider [...] Cervical Cancer Screening (CCS) 1996 HPV/Cotest 1996 Cologuard 11/25/2011 Colonoscopy 11/25/2011 Colorectal Cancer Screening 11/25/2011 Immunochemical Fecal Occult Blood 11/25/2011 Pneumococcal Immunization (5 0+ years) (1 of 1 - PCV) 2016 Zoster Immunization (1 of 2) 2016 SARS-COV-2 Immunization (1 - 2023- season) 2024 Influenza Immunization (#1) 2025 Respiratory Syncytial Virus (RSV) Immunization (Adult) (1 - 1-dose 75+ series) 2041 Human Papillomavirus (HPV) Immunization Aged Out No longer eligible b ased on patient's age to complete this topic Meningococcal Immunization (ACWY) Aged Out No longer eligible based on patient's age to complete this topic Rotavirus Immunization Aged Out No lo nger eligible based on patient's age to complete this topic
== END 2025-01-25 16:23 | disposition home or self-care (01) ==
LOC: CHSIMG 16:23
PROVIDERS: PCP Family Medicine; Visit Provider Family Medicine
DX: R10.9 Unspecified abdominal pain (principal); N20.0 Calculus of kidney; D25.9 Leiomyoma of uterus, unspecified
CPT/HCPCS: 74176

== ENCOUNTER 2025-02-01 08:05 | Outpatient (CLI) | payer OTHER, SELFPAY ==
--- NOTE | 2025-02-01 08:11 | EST_ITS ---
Patient Info Name: Tatiana Baron Age: 59 years : 1965 Gender: Female Ht: 65 in Wt: 135 lbs BSA: 1.68 m2 HR: 66 bpm BP: 146 / 80 mmHg Heart Rhythm: Sinus Rhythm Technical Quality: Good Exam Date: 02/01/2025 8:11 AM Patient Status: O Admit Date: 02/01/2025 Exam Type: CA stress brett w NM A regadenoson stress test was performed. Staff Referring Physician: Tio Rutledge DO Attending Provider: Tio Rutledge DO Summary 1. 1. Negative lexiscan stress test for ischemic ST changes by ECG criteria. 2. 2. Baseline hypertension. 3. 3. Nuclear scan to follow and will be reported separately. Please correlate with it. Protocol: LEXISCAN Stress ECG Details Stage: REST Duration (min): 7 min : 45 sec HR (bpm): 67 SBP (mmHg): 146 DBP (mmHg): 80 Stage: REST Duration (min): 11 min : 13 sec HR (bpm): 74 SBP (mmHg): 146 DBP (mmHg): 80 Stage: STAGE 1 Duration (min): 0 min : 22 sec HR (bpm): 71 SBP (mmHg): 146 DBP (mmHg): 80 Stage: RECOVERY Duration (min): 0 min : 37 sec HR (bpm): 103 SBP (mmHg): 146 DBP (mmHg): 80 Stage: RECOVERY Duration (min): 1 min : 37 sec HR (bpm): 112 SBP (mmHg): 146 DBP (mmHg): 80 Stage: RECOVERY Duration (min): 2 min : 37 sec HR (bpm): 109 SBP (mmHg): 152 DBP (mmHg): 84 Stage: RECOVERY Duration (min): 3 min : 37 sec HR (bpm): 107 SBP (mmHg): 155 DBP (mmHg): 88 Stage: RECOVERY Duration (min): 4 min : 37 sec HR (bpm): 98 SBP (mmHg): 154 DBP (mmHg): 84 Stage: RECOVERY Duration (min): 5 min : 37 sec HR (bpm): 102 SBP (mmHg): 154 DBP (mmHg): 84 Stage: RECOVERY Duration (min): 6 min : 37 sec HR (bpm): 95 SBP (mmHg): 162 DBP (mmHg): 91 Stage: RECOVERY Duration (min): 7 min : 9 sec HR (bpm): --- SBP (mmHg): 162 DBP (mmHg): 91 Rest HR: 74 bpm Peak HR: 112 bpm Rest Sys BP: 146 mmHg Peak Sys BP: 162 mmHg Max Pred HR: 162 bpm % Max Pred HR: 69 % Target HR: 138 bpm Max RPP: 18,144 bpm*mmHg BP Response: Normal blood pressure response Termination Reason: Completed Protocol Cardiac Symptoms: None Total Time: 0 min : 22 sec Rest Osuna BP: 80 mmHg Peak Osuna BP: 91 mmHg Total Dose: 0.4 mg Resting ECG Sinus rhythm, BRWP. Stress ECG No abnormal ST/T wave changes. Arrhythmias None. Report Signatures
--- OUTSIDE RECORDS SUMMARY | 2025-02-01 08:14 | XMS_ITS | Encounter Summary ---
Author Organization [facility] Healthcare Address [address] [place] [address] Care Team Providers Care Carpet Sewing Machine Operator Name Role Phone Lizbeth Boo Primary Care Provider [phone] Encounter Details Date Type Department Care Team (Late st Contact Info) Description 01/27/2025 Orders Only [facility] Medical Group Orthopedics and Sports Medicine [address] [facility] [address] [place] [address] Robi Liao MD [address] [place] [address] KATHY B [facility] [address] [place] [address] Arthritis of left acromioclavicular joint (Primary Dx); Traumatic tear of left rotator cuff, unspecified tear extent, initial encounter; Biceps tendinitis of left upper extremity; Impingement syndrome of left shoulder Social History Tobacco Use Types Packs/Day Years Used Date Smoking Tobacco: Former Cigarettes Smokeless Tobacco: Never Alcohol Use Standard Drinks/Week [...] on file Legal Sex Female 1:25 AM AGRICULTURAL RESEARCH TECHNOLOGIST Gender Identity Not on file Sexual Orientation Not on file documented as of this encounter Plan of Treatment Upcoming Encounters Date Type Department Care Team (Latest Contact Info) Description 02/18/2025 9:55 AM CDT Hospital Encounter [facility] Operating Room [address] [place] [address] Robi Liao MD [address] KATHY Joel [facility] [address] [place] [address] 02/18/2025 9:55 AM CDT - 02/18/2025 12:05 PM CDT Surgery [facility] Operating Room [address] [place] [address] Robi Liao MD [address] KATHY Joel [facility] [address] [place] [address] Left shoulder arthroscopy, distal claviculectomy including distal articular surface, decompression of subacromial space with partial acromioplasty with coracoacromial release, rotator cuff repair and biceps tenodesis--arthroscopy equipment, Arthrex [place] Rf Vapor, Breg Sling shot 2 sling with abduction pillow, NMES, Spider, Arthrex anchors, beach chair, polar care, biceps tenodesis set Arthrex on hold, Arthoflex graft available Scheduled Procedures Name Priority Associated Diagnoses Date/Ti me ARTHROSCOPY SHOULDER Traumatic tear of left rotator cuff, initial encounter Arthritis of left acromioclavicular joint Biceps tendonitis on left Impingement syndrome of left shoulder 02/18/2025 9:55 AM CDT documented as of this encounter Visit Diagnoses Diagnosis Traumatic tear of left rotator cuff, initial encounter Arthritis of left acromioclavicular joint Biceps tendonitis on left Impingement syndrome of left shoulder Arthritis of left acromioclavicular joint- Primary Traumatic tear of left rotator cuff, unspecified tear extent, initial encounter Biceps tendinitis of left upper extremity Impingement syndrome of left shoulder Traumatic tear of left rotator cuff, initial encounter Arthritis of left acromioclavicular joint Biceps tendonitis on left Impingement syndrome of left shoulder documented in this encounter Orders General Supply Count Last Ordered Date First Or dered Date NEUROMUSCULAR ELECTRICAL STI MULATION (NMES) 1 01/27/2025 documented in this encounter Care Teams Carpet Sewing Machine Operator Relationship Specialty Start Date End Date Lizbeth Boo PA [address] [place] [address] PCP - General Emergency Medicine 05/24/20 documented as of this encounter
--- OUTSIDE RECORDS SUMMARY | 2025-02-01 08:14 | XMS_ITS | Encounter Summary ---
Author Organization [facility] Address [address] [place] [address] Care Team Providers Care Automation Qtp Tester Name Role Phone Lizbeth Boo Primary Care Provider [phone] Lizbeth Boo Primary Care Provider [phone] Lizbeth Boo Unavailable [phone] Jeff Garcia MD Unavailable [phone] Kenney Martinez APRN Unavailable [phone] Tio Rutledge DO Unavailable Encounter Details Date Type Department Care Team (Late st Contact Info) Description 12/25/2019 Mobisante Message Enc [facility] [address] [place] [address], [address] [place] [address] Fernanda Clements, GLOBAL ANALYTICS HEAD- [address] [facility] [place] [address] Visit Follow Up Social History Tobacco Use [...] Rule Out 03/03/2021 03/03/2021 05/29/2021 7:41 PM LAN ENGINEER COVID-19 Rule Out 03/03/2021 03/03/2021 07/27/2021 2:08 PM LAN ENGINEER documented as of this encounter Care Teams Automation Qtp Tester Relationship Specialty Start Date End Date Lizbeth Boo PA [address] [place] [address] PCP - General PHYSICIAN ROAD GRADER 09/03/19 10/12/21 Lizbeth Boo PA [address] [address] - [address] 10/13/21 Lizbeth Boo PA [address] 10/13/21 05/01/22 Jeff Garcia MD [address] [address] Consulting Physician INTERVENTIONAL CARDIOLOGY 09/03/19 Kenney Martinez APRN [address] [address] Nurse Practitioner NURSE PRACTITIONER 09/03/19 Tio Rutledge DO [address] [facility] [address] [place] [address] INTERNAL MEDICINE 05/02/22 documented as of this encounter
--- OUTSIDE RECORDS SUMMARY | 2025-02-01 08:14 | XMS_ITS | Referral Summary ---
Author Organization [facility] Medical Office Building [address] Address [address] [place] [address] Care Team Providers Care Equipment Worker Name Role Phone Lizbeth Boo Primary Care Provider [phone] Encounters Date Type Department Care Team Description 01/27/2025 Orders Only [facility] Medical [facility] Orthopedics and Sports Medicine [address] [facility] [address] [place] [address] Robi Liao MD Arthritis of left acromioclavicular joint (Primary Dx); Traumatic tear of left rotator cuff, unspecified tear extent, initial encounter; Biceps tendinitis of left upper extremity; Impingement syndrome of left shoulder 01/27/2025 Telephone [facility] Operating Room [address] [place] [address] Robi Liao MD 12/18/2024 Telephone [facility] Orthopedic and Sports Medicine [address] [place] [phone] Robi Liao MD 12/18/2024 Orders Only [facility] Medical [facility] Orthopedic and Sports Medicine [address] [place] [phone] Robi Liao MD 12/18/2024 Orders Only [facility] Orthopedic and Sports Medicine [address] [place] [phone] Robi Liao MD S/P arthroscopy of left shoulder (Primary Dx) 12/18/2024 Telephone [facility] Orthopedic and Sports Medicine [address] [place] [phone] Robi Lioa MD Surgical Clearance 12/18/2024 9:00 AM CDT Office Visit [facility] Medical [facility] Orthopedic and Sports Medicine [address] [place] [phone] Robi Liao MD Traumatic tear of left rotator cuff, unspecified tear extent, initial encounter (Primary Dx); Arthritis of left acromioclavicular joint; Biceps tendinitis of left upper extremity; Impingement syndrome of left shoulder 11/03/2024 Telephone [facility] Medical [facility] Orthopedic and Sports Medicine [address] [place] [phone] Marco A Carrion PA 11/03/2024 1:20 PM [...] Active Problems Problem Noted Date Diagnosed Date Traumatic tear of left rotator cuff, initial enc ounter 01/27/2025 Arthritis of left acromioclavicular joint 2024 Biceps tendonitis on left 01/27/2025 Impingement syndrome of left shoulder 01/27/2025 HLD (hyperlipidemia) 05/26/2020 MVP (mitral valve prolapse) 05/26/2020 Blood in stool 05/24/2020 Assessment & Plan (05/24/2020 1:38 PM SENIOR BUSINESS DEVELOPMENT ANALYST): Severe constipation for over 1`0 yrs with occ BRB. Never colonoscoped. Diet devoid of fiber so suggested fruit tid, colonoscopy, and on exam today II- III roids. Desires IRC. Will do screening colonoscopy and IRC. Gastroesophageal reflux disease 05/24/2020 Assessment & Plan (05/24/2020 1:39 PM SENIOR BUSINESS DEVELOPMENT ANALYST): Severe substernal burning to spicy foods getting worse but some relief with pepcid. notye recent onset dysphagia to solids. Will EGD and possibly dil at time of colonoscopy. Encounter for screening colonoscopy 05/24/2020 Overview (05/24/2020): Added automatically from request for surgery [id number] Dysphagia 05/24/2020 Overview (05/24/2020): Added automatically from request for surgery [id number] Other hemorrhoids 05/24/2020 Overview (05/24/2020): Added automatically from request for surgery [id number] Neuroma 02/18/2020 Strain of right hip adductor [...] on file Legal Sex Female 1:25 AM SENIOR BUSINESS DEVELOPMENT ANALYST Gender Identity Not on file Sexual Orientation Not on file Last Filed Vital Signs Vital Sign Reading Time Taken Comments Blood Pressure 122/77 12/18/2024 9:03 AM CDT Pulse 63 12/18/2024 9:03 AM CDT Temperature 36.6 C (97.8 F) 06/14/2020 11:46 AM SENIOR BUSINESS DEVELOPMENT ANALYST Respiratory Rate 16 06/14/2020 11:46 AM SENIOR BUSINESS DEVELOPMENT ANALYST Oxygen Saturation 100% 06/14/2020 11:46 AM SENIOR BUSINESS DEVELOPMENT ANALYST Inhaled Oxygen Concentration - - Weight 60.3 kg (132 lb 15 oz) 12/18/2024 9:35 AM CDT Height 165.1 cm (5' 5) 12/18/2024 9:35 AM CDT Body Mass Index 22.12 12/18/2024 9:35 AM CDT Plan of Treatment Upcoming Encounters Date Type Department Care Team (Latest Contact Info) Description 02/18/2025 9:55 AM CDT Hospital Encounter [facility] Operating Room [address] [place] [address] Robi Liao MD [address] [place] [address] DR KATHY Joel [facility] [address] [place] [address] 02/18/2025 9:55 AM CDT - 02/18/2025 12:05 PM CDT Surgery [facility] Operating Room [address] [place] [address] Robi Liao MD [address] [place] [address] DR KATHY Joel [facility] [address] [place] [address] Left shoulder arthroscopy, distal claviculectomy including distal articular surface, decompression of subacromial space with partial acromioplasty with coracoacromial release, rotator cuff repair and biceps tenodesis--arthroscopy equipment, Arthrex [place] Rf Vapor, Breg Sling shot 2 sling with abduction pillow, NMES, Spider, Arthrex anchors, beach chair, polar care, biceps tenodesis set Arthrex on hold, Arthoflex graft available Scheduled Procedures Name Priority Associated Diagnoses Date/Ti me ARTHROSCOPY SHOULDER Traumatic tear of left rotator cuff, initial encounter Arthritis of left acromioclavicular joint Biceps tendonitis on left Impingement syndrome of left shoulder 02/18/2025 9:55 AM CDT Procedures Procedure Name Priority Date/Time Associated Diagnosis Comments MRI TRANSFER OF OUTSIDE FILMS Routine 11/03/2024 1:19 PM CDT COLONOSCOPY 06/14/2020 10:33 AM SENIOR BUSINESS DEVELOPMENT ANALYST from Last 3 Months or Most Recently Relevant to Health Maintenance Results * MRI Outside Reference (11/03/2024 1:19 PM CDT) Narrative GAYLA - 11/03/2024 1:19 PM CDT This order has been auto-finalized and does not contain a result. us Not In File Miscellaneous IMG MRI PROCEDURES Fin al Result RAD_PACS_[facility] * COLONOSCOPY (06/14/2020 10:33 AM SENIOR BUSINESS DEVELOPMENT ANALYST) Anatomical Region Laterality Modality Other Narrative Procedure Note Lobo Little MD - 06/14/2020 10:33 AM CST [facility] Patient Name: Tatiana Baron Procedure Date: 06/14/2020 10:33 AM Date of : 1965 Admit Type: Outpatient Age: 54 Gender: Female Attending MD: Lobo Little M.D. Room: [facility] ENDOSCOPY ROOM 2 Note Status: Finalized Patient [...] scope was passed under direct vision.The Colonoscope [id number] was introducedthrough the anus and advanced to [...] 10:33 AM Procedure Code(s): --- Professional --- 89196, Colonoscopy, flexible; with removal of tumor(s), polyp(s), or other lesion(s) by hot biopsy forceps Diagnosis Code(s): --- Professional --- K62.1, Rectal polyp K64.9, Unspecified hemorrhoids Z12.11, Encounter for screening for malignant neoplasm of colon CPT copyright 2017 [employer]. All rights reserved. The codes documented in this report are preliminary and upon immigration guard reviewmay be revised to meet current compliance requirements. Recognized by the [employer] for promoting quality in endoscopy Lobo Little MD ENDOSCOPY PROCEDURES Final Re sult from Last 3 Months or Most Recently Relevant to Health Maintenance Insurance [facility] Advance Directives For more information, please contact: [phone] * Full Code (Latest Code Status on File) Date Activated Date Inactivated Comments 06/14/2020 9:49 AM 06/14/2020 4:08 PM * Full Code Date Activated Date Inactivated Comments 06/14/2020 9:49 AM 06/14/2020 9:49 AM Care Teams Equipment Worker Relationship Specialty Start Date End Date Lizbeth Boo PA [address] [place] [address] PCP - General Emergency Medicine 05/24/20
--- OUTSIDE RECORDS SUMMARY | 2025-02-01 08:14 | XMS_ITS | Clinical Summary ---
Author Organization [facility] Care Team Providers Care Product Managent Intern Name Role Phone Unavailable Primary Care Provider [...]
--- OUTSIDE RECORDS SUMMARY | 2025-02-01 08:14 | XMS_ITS | Clinical Summary ---
Author Organization [facility] Medical Office Building B Address [address] [place] [address] Care Team Providers Care Inpatient Coder Name Role Phone Lizbeth Boo Primary Care Provider [phone] Allergies Active Allergy Reactions Criticality Noted Date [...] 05/24/2020 Assessment & Plan (05/24/2020 1:38 PM HYDROELECTRIC PLANT ELECTRICAL ENGINEER): Severe constipation for over 1`0 yrs with occ BRB. Never colonoscoped. Diet devoid of fiber so suggested fruit tid, colonoscopy, and on exam today II- III roids. Desires IRC. Will do screening colonoscopy and IRC. Gastroesophageal reflux disease 05/24/2020 Assessment & Plan (05/24/2020 1:39 PM HYDROELECTRIC PLANT ELECTRICAL ENGINEER): Severe substernal burning to spicy foods getting worse but some relief with pepcid. notye recent onset dysphagia to solids. Will EGD and possibly dil at time of colonoscopy. Encounter for screening colonoscopy 05/24/2020 Overview (05/24/2020): Added automatically from request for surgery [id number] Dysphagia 05/24/2020 Overview (05/24/2020): Added automatically from request for surgery [id number] Other hemorrhoids 05/24/2020 Overview (05/24/2020): Added automatically from request for surgery [id number] Neuroma 02/18/2020 Strain of right hip adductor muscle 01/08/2020 Greater trochanteric bursitis of right hip 12/24 BARRIENTOS (dyspnea on exertion) 09/07/2019 Encounters Date Type Department Care Team Description 01/27/2025 Orders Only [facility] Orthopedics and Sports Medicine [address] [facility] [address] [phone] Robi Liao MD Arthritis of left acromioclavicular joint (Primary Dx); Traumatic tear of left rotator cuff, unspecified tear extent, initial encounter; Biceps tendinitis of left upper extremity; Impingement syndrome of left shoulder 01/27/2025 Telephone [facility] Operating Room [address] [place] [address] Robi Liao MD 12/18/2024 9:00 AM CDT Office Visit [facility] Orthopedic and Sports Medicine [facility] [place] [phone] Robi Liao MD Traumatic tear of left rotator cuff, unspecified tear extent, initial encounter (Primary Dx); Arthritis of left acromioclavicular joint; Biceps tendinitis of left upper extremity; Impingement syndrome of left shoulder 12/18/2024 Telephone [facility] Orthopedic and Sports Medicine [address] [place] [phone] Robi Liao MD 12/18/2024 Orders Only [facility] Orthopedic and Sports Medicine [address] [place] [phone] Robi Liao MD 12/18/2024 Orders Only [facility] Orthopedic and Sports Medicine [address] [place] [phone] Robi Liao MD S/P arthroscopy of left shoulder (Primary Dx) 12/18/2024 Telephone [facility] Orthopedic and Sports Medicine [address] [place] [phone] Robi Liao MD Surgical Clearance 11/03/2024 1:20 PM CDT Ancillary Procedure [facility] Outside Films 11/03/2024 Telephone [facility] Orthopedic and Sports Medicine [address] [place] [phone] Marco A Carrion PA from Last 3 Months Surgical History Surgery Date Site/Laterality Comments SECTION section CARPAL TUNNEL RELEASE TUBAL LIGATION 07/08/1992 - 07/07/1993 [facility] CYST REMOVAL 07/08/2012 - 07/07/2013 PYLENODAL CYST REMOVAL-[place] CARDIAC SURGERY 07/08/2019 - 07/07/2020 HEART CATH- [facility] COLONOSCOPY 06/14/2020 1st UPPER GASTROINTESTINAL ENDOSCOPY [...] on file Legal Sex Female 1:25 AM HYDROELECTRIC PLANT ELECTRICAL ENGINEER Gender Identity Not on file Sexual Orientation Not on file Obstetrics History Last Filed Vital Signs Vital Sign Reading Time Taken Comments Blood Pressure 122/77 12/18/2024 9:03 AM CDT Pulse 63 12/18/2024 9:03 AM CDT Temperature 36.6 C (97.8 F) 06/14/2020 11:46 AM HYDROELECTRIC PLANT ELECTRICAL ENGINEER Respiratory Rate 16 06/14/2020 11:46 AM HYDROELECTRIC PLANT ELECTRICAL ENGINEER Oxygen Saturation 100% 06/14/2020 11:46 AM HYDROELECTRIC PLANT ELECTRICAL ENGINEER Inhaled Oxygen Concentration - - Weight 60.3 kg (132 lb 15 oz) 12/18/2024 9:35 AM CDT Height 165.1 cm (5' 5) 12/18/2024 9:35 AM CDT Body Mass Index 22.12 12/18/2024 9:35 AM CDT Plan of Treatment Upcoming Encounters Date Type Department Care Team (Latest Contact Info) Description 02/18/2025 9:55 AM CDT Hospital Encounter [facility] Operating Room [address] [place] [address] Robi Liao MD [address] [facility] [address] KATHY Joel [address] [address] 02/18/2025 9:55 AM CDT - 02/18/2025 12:05 PM CDT Surgery [facility] Operating Room [address] [place] [address] Robi Liao MD [address] [facility] [address] KATHY Joel ANGUS [address] [place] [id number] Left shoulder arthroscopy, distal claviculectomy including distal articular surface, decompression of subacromial space with partial acromioplasty with coracoacromial release, rotator cuff repair and biceps tenodesis--arthroscopy equipment, Arthrex Corona Rf Vapor, Breg Sling shot 2 sling with abduction pillow, NMES, Spider, Arthrex anchors, beach chair, polar care, biceps tenodesis set Arthrex on hold, Arthoflex graft available Scheduled Procedures Name Priority Associated Diagnoses Date/Ti me ARTHROSCOPY SHOULDER Traumatic tear of left rotator cuff, initial encounter Arthritis of left acromioclavicular joint Biceps tendonitis on left Impingement syndrome of left shoulder 02/18/2025 9:55 AM CDT Health Maintenance Due Date Last Done Comments [...] 1:19 PM CDT COLONOSCOPY 06/14/2020 10:33 AM HYDROELECTRIC PLANT ELECTRICAL ENGINEER from Last 3 Months or Most Recently Relevant to Health Maintenance Results * MRI Outside Reference (11/03/2024 1:19 PM CDT) Narrative [facility] - 11/03/2024 1:19 PM CDT This order has been auto-finalized and does not contain a result. us Not In File Miscellaneous IMG MRI PROCEDURES Fin al Result [facility] * COLONOSCOPY (06/14/2020 10:33 AM HYDROELECTRIC PLANT ELECTRICAL ENGINEER) Anatomical Region Laterality Modality Other Narrative Procedure Note Lobo Little MD - 06/14/2020 10:33 AM CST [facility] Patient Name: Tatiana Baron Procedure Date: 06/14/2020 10:33 AM Date of : 1965 Admit Type: Outpatient Age: 54 Gender: Female Attending MD: Lobo Little M.D. Room: [facility] ENDOSCOPY ROOM 2 Note Status: Finalized Patient [...] scope was passed under direct vision.The Colonoscope [id number] was introducedthrough the anus and advanced to [...] 10:33 AM Procedure Code(s): --- Professional --- 96921, Colonoscopy, flexible; with removal of tumor(s), polyp(s), or other lesion(s) by hot biopsy forceps Diagnosis Code(s): --- Professional --- K62.1, Rectal polyp K64.9, Unspecified hemorrhoids Z12.11, Encounter for screening for malignant neoplasm of colon CPT copyright 2017 [employer]. All rights reserved. The codes documented in this report are preliminary and upon pegger dobby looms reviewmay be revised to meet current compliance requirements. Recognized by the [employer] for promoting quality in endoscopy Lobo Little MD ENDOSCOPY PROCEDURES Final Re sult from Last 3 Months or Most Recently Relevant to Health Maintenance Insurance [facility] Advance Directives For more information, please contact: [phone] * Full Code (Latest Code Status on File) Date Activated Date Inactivated Comments 06/14/2020 9:49 AM 06/14/2020 4:08 PM * Full Code Date Activated Date Inactivated Comments 06/14/2020 9:49 AM 06/14/2020 9:49 AM Care Teams Inpatient Coder Relationship Specialty Start Date End Date Lizbeth Boo PA [address] [place] [address] PCP - General Emergency Medicine 05/24/20
--- OUTSIDE RECORDS SUMMARY | 2025-02-01 08:14 | XMS_ITS | Clinical Summary ---
Author Organization [facility] Address [address] [place] [address] Care Team Providers Care Tapper Bit Name Role Phone Lizbeth Boo Primary Care Provider [phone] Jeff Garcia MD Unavailable [phone] Kenney Martinez DISTRIBUTION DISTRICT SUPERVISOR Unavailable [phone] Tio Rutledge DO Unavailable Allergies Active Allergy [...] 30 to 64) Every 5 Years 1996 Zoster Vaccines (1 of 2) 2016 Mammogram [...] Most Recently Relevant to Health Maintenance [facility] Advance Directives Documents on File Type Date Recorded Patient Marketing Campaign Analyst Expl anation Power of Roll Hand 09/14/2019 9:01 AM Florentino Mock, [facility]- significatn Other; Bebe Edwards, 1st alternate [facility]-other; Advance Directives and Living Will 09/14/2019 8:57 AM [place]IV[place] ACT DECLARATION Healthcare Agents on File Name Relationship Healthcare Agent Relationship Communication Noel ([place]) Nish Significant other Health Care Agen t Bebe Edwards Parents First Alterna te Health Care Agent Care Teams Tapper Bit Relationship Specialty Start Date End Date Lizbeth Boo PA [address] [place] [id number] PCP - General PHYSICIAN PROFILER HAND 10/13/21 Jeff Garcia MD [address] [place] [id number] Consulting Physician INTERVENTIONAL CARDIOLOGY 09/03/19 Kenney Martinez APRN [address] [place] [address] Nurse Practitioner NURSE PRACTITIONER 09/03/19 Tio Rutledge DO [address] [place] [address] INTERNAL MEDICINE 05/02/22
--- NOTE | 2025-02-01 16:23 | P.NST_ITS ---
Nuclear Stress Test INDICATIONS Indications: Preop PROCEDURE Procedure Performed: Myocardial Perf Spect-Multi Procedure: Patient underwent a lexiscan stress test and immediately was injected with 31.8 mCi of cardiolyte. Multiple images were obtained. These are of good quality. There is evidence of a small size, mild severity anteroapical and anterior perfusion defects with stress imaging. A separate resting images were obtained after patient was injected with 10.5 mCi of cardiolyte. Multiple images were obtained. These are of good quality. There is evidence of a small size, mild severity anteroapical and anterior perfusion defects with rest imaging. CONCLUSION Conclusion: 1. Myocardial perfusion imaging demonstrating a fixed anteroapical and apical perfusion defects suggestive of breast attenuation artifact. 2. No evidence of reversible ischemia. 3. Left ventriculogram demonstrates normal measured ejection fraction of 57% wi th no wall motion abnormalities. 4. TID score 1.04 is not elevated.
== END 2025-02-01 08:06 | disposition home or self-care (01) ==
PROVIDERS: PCP Family Medicine; Visit Provider Internal Medicine Cardiovascular Disease
DX: Z01.810 Encounter for preprocedural cardiovascular examination (principal)
CPT/HCPCS: 78452; 93017; A9502; J2785

== ENCOUNTER 2025-04-07 17:15 | Outpatient (RCR) | payer OTHER, SELFPAY ==
--- NOTE | 2025-02-26 17:36 | OPREHPOC ---
Outpatient Therapy Plan of Care This is a Multidisciplinary Plan of Care that may contain components documented by all disciplines (PT, OT, and ST.) PT Problem 1 PT Problem #1 Knowledge Deficit PT Goal 1 Goal / Goal Update independent and compliant with HEP Target Visit 6 PT Problem 2 PT Problem #2 Pain PT Goal 1 Goal / Goal Update patient to report no more than 3/10 pain at worst with prom exercises Target Visit 12 PT Problem 3 PT Problem #3 Impaired Range of Motion PT Goal 1 Goal / Goal Update 1. passive L shoulder flexion to 120 degrees 2. passive L shoulder abduction to 90 degrees 3. passive L shoulder ER to 30 degrees in scapular plane. Target Visit 12
--- NOTE | 2025-02-26 17:36 | PTOPEVAL1 ---
Assessment and note entered by JT File, PT Evaluation Information Assessment Status Evaluation Diagnosis s/p L shoulder arthroscopy ICD-10 Condition Codes (PT) Pain in left shoulder M25.512 Onset 02/18/25 Subjective Information patient underwent L shoulder arthroscopy on . she reports it was a RTC repair, and reports she was told to be in the sling outside of PT until she follows up with the surgeons office next week. she reports she follows up on 03/03/25. she reports she injured the shoulder last year when she fell playing with her grandson. she reports she dealt with the pain for about a year and had surgery just recently. Reported Pain Level Pain Score 0: Self Report Assessment PT Clinical Summary mrs. mackay is a 59 yo woman who presents to skilled PT services for evaluation and treatment following L shoulder RTC repair. she presents today 8 days post op. she displays deficits in rom , strength, and functional use of the L UE, and is limited to minimal PROM via her post op protocol. continued skilled PT is indicated to improve her objective/functional deficits and progress towards a return to her prior level functional activity performance/quality of life. Plan of Care Interventions Electrical Stimulation,Hot Pack/Cold Pack,Manual Therapy,Neuro Re-education,Patient/Caregiver Education,Therapeutic Activities,Therapeutic Exercise PT Services Indicated Yes Treatment Frequency and 2x weekly for 12 visits Duration These treatments will address the objective and functional deficits as defined above. The patient will be advanced safely and appropriately in order for the patient to progress towards his/her prior level of function. Additional exercises will be introduced and as well as a comprehensive home exercise program upon discharge, if needed, ?to ensure carryover of functional gains achieved in the clinic. This treatment plan has been reviewed and agreement upon by the patient.
--- NOTE | 2025-04-05 15:57 | PTOPPROG ---
Assessment and note entered by Mary Martinez, PT Evaluation Information Assessment Status Progress Diagnosis s/p L shoulder arthroscopy ICD-10 Condition Codes (PT) Pain in left shoulder M25.512 Onset 02/18/25 Subjective Information See 04/02/2025 daily note by Larisa Romo PTA. Assessment PT Clinical Summary See 04/02/2025 daily note by Larisa Romo PTA. Plan of Care Interventions Electrical Stimulation,Hot Pack/Cold Pack,Manual Therapy,Neuro Re-education,Patient/Caregiver Education,Therapeutic Activities,Therapeutic Exercise PT Services Indicated Yes Treatment Frequency and Continue per POC Duration These treatments will address the objective and functional deficits as defined above. The patient will be advanced safely and appropriately in order for the patient to progress towards his/her prior level of function. Additional exercises will be introduced and as well as a comprehensive home exercise program upon discharge, if needed, ?to ensure carryover of functional gains achieved in the clinic. This treatment plan has been reviewed and agreement upon by the patient.
--- NOTE | 2025-04-05 15:57 | OPREHPOC ---
Outpatient Therapy Plan of Care This is a Multidisciplinary Plan of Care that may contain components documented by all disciplines (PT, OT, and ST.) PT Problem 1 PT Problem #1 Knowledge Deficit PT Goal 1 Goal / Goal Update independent and compliant with HEP Target Visit 6 Progress Met PT Problem 2 PT Problem #2 Pain PT Goal 1 Goal / Goal Update patient to report no more than 3/10 pain at worst with prom exercises Target Visit 12 Progress Not Met PT Problem 3 PT Problem #3 Impaired Range of Motion PT Goal 1 Goal / Goal Update 1. passive L shoulder flexion to 120 degrees 2. passive L shoulder abduction to 90 degrees 3. passive L shoulder ER to 30 degrees in scapular plane. Target Visit 12 Progress Not Met
--- NOTE | 2025-04-14 18:04 | OPREHPOC ---
Outpatient Therapy Plan of Care This is a Multidisciplinary Plan of Care that may contain components documented by all disciplines (PT, OT, and ST.) PT Problem 1 PT Problem #1 Knowledge Deficit PT Goal 1 Goal / Goal Update independent and compliant with HEP Target Visit 6 Progress Met PT Problem 2 PT Problem #2 Pain PT Goal 1 Goal / Goal Update patient to report no more than 3/10 pain at worst with prom exercises Target Visit 20 Progress Not Met PT Problem 3 PT Problem #3 Impaired Range of Motion PT Goal 1 Goal / Goal Update 1. passive L shoulder flexion to 120 degrees. met 2. passive L shoulder abduction to 90 degrees. met 3. passive L shoulder ER to 30 degrees in scapular plane. met Target Visit 12 Progress Met PT Goal 2 Goal / Goal Update 145 degrees active L shoulder flex 130 degrees active L shoulder abd Target Visit 20 PT Problem 4 PT Problem #4 Impaired Strength PT Goal 1 Goal / Goal Update 4/5 L shoulder strength overall Target Visit 20 PT Problem 5 PT Problem #5 Impaired Functional Mobility PT Goal 1 Goal / Goal Update functional reach to the shirt collar behind head with ease of movement and no trunk compensation functional reach to the bra line without compensation quick dash to display less than 25% functional deficits Target Visit 20
--- NOTE | 2025-04-14 18:04 | PTOPREEVAL ---
Assessment and note entered by JT File, PT Evaluation Information Assessment Status Re-evaluation Diagnosis s/p L shoulder arthroscopy ICD-10 Condition Codes (PT) Pain in left shoulder M25.512 Onset 02/18/25 Subjective Information patient reports she has been very active since her sling came off. she reports she saw the surgeons office who told her she needs to be using it and moving it more. she was told it is a bit to tight and needs to be stretched. she reports she has been cleaning and vacuuming since she got out of the sling. Reported Pain Level Pain Score 6: Self Report Assessment PT Clinical Summary mrs. mackay presents to skilled PT services for her 12th skilled PT visit today. she displays deficits in L shoulder active and passive rom and strength. she is 8 weeks post op tomorrow, and would benefit from continued skilled PT to address her remaining objective/functional deficits and progress towards a return to her prior level functional activity performance/quality of life. Plan of Care Interventions Electrical Stimulation,Hot Pack/Cold Pack,Manual Therapy,Neuro Re-education,Patient/Caregiver Education,Therapeutic Activities,Therapeutic Exercise PT Services Indicated Yes Treatment Frequency and continue skilled PT 2x weekly for 8 more visits Duration These treatments will address the objective and functional deficits as defined above. The patient will be advanced safely and appropriately in order for the patient to progress towards his/her prior level of function. Additional exercises will be introduced and as well as a comprehensive home exercise program upon discharge, if needed, ?to ensure carryover of functional gains achieved in the clinic. This treatment plan has been reviewed and agreement upon by the patient.
--- NOTE | 2025-05-03 17:06 | OPREHPOC ---
Outpatient Therapy Plan of Care This is a Multidisciplinary Plan of Care that may contain components documented by all disciplines (PT, OT, and ST.) PT Problem 1 PT Problem #1 Knowledge Deficit PT Goal 1 Goal / Goal Update independent and compliant with HEP Target Visit 6 Progress Met PT Problem 2 PT Problem #2 Pain PT Goal 1 Goal / Goal Update patient to report no more than 3/10 pain at worst with prom exercises Target Visit 24 Progress Not Met PT Problem 3 PT Problem #3 Impaired Range of Motion PT Goal 1 Goal / Goal Update 1. passive L shoulder flexion to 120 degrees. met 2. passive L shoulder abduction to 90 degrees. met 3. passive L shoulder ER to 30 degrees in scapular plane. met Target Visit 12 Progress Met PT Goal 2 Goal / Goal Update 145 degrees active L shoulder flex. nearly met 130 degrees active L shoulder abd. met Target Visit 24 Progress Partially Met PT Problem 4 PT Problem #4 Impaired Strength PT Goal 1 Goal / Goal Update 4/5 L shoulder strength overall Target Visit 24 Progress Not Met PT Problem 5 PT Problem #5 Impaired Functional Mobility PT Goal 1 Goal / Goal Update functional reach to the shirt collar behind head with ease of movement and no trunk compensation functional reach to the bra line without compensation quick dash to display less than 25% functional deficits. met Target Visit 24 Progress Partially Met
--- NOTE | 2025-05-03 17:06 | PTOPREEVAL ---
Assessment and note entered by JT File, PT Evaluation Information Assessment Status Re-evaluation Diagnosis s/p L shoulder arthroscopy ICD-10 Condition Codes (PT) Pain in left shoulder M25.512 Onset 02/18/25 Subjective Information patient reports she is consistent with her HEP at home. she reports she is hoping to get cleared for more PT as it is still tight and weak. however, she reports if she does not get more visits approved, she will be asking to go back to work [employer]. Assessment PT Clinical Summary mrs. mackay presents to skilled PT services with improved L shoulder rom. however, she is still limited in functional reach behind head and back, and has decreased strength of the L shoulder. she has made progress towards goals, but is still lacking achievement of pain, rom, strength functional goals. continued skilled PT is indicated to further improve patients objective/ functional deficits and progress towards a return to her prior level functional activity performance and quality of life. Plan of Care Interventions Electrical Stimulation,Hot Pack/Cold Pack,Manual Therapy,Neuro Re-education,Patient/Caregiver Education,Therapeutic Activities,Therapeutic Exercise PT Services Indicated Yes Treatment Frequency and continue skilled PT 1x weekly for 4 more visits Duration These treatments will address the objective and functional deficits as defined above. The patient will be advanced safely and appropriately in order for the patient to progress towards his/her prior level of function. Additional exercises will be introduced and as well as a comprehensive home exercise program upon discharge, if needed, ?to ensure carryover of functional gains achieved in the clinic. This treatment plan has been reviewed and agreement upon by the patient.
== END 2025-05-27 23:59 | disposition home or self-care (01) ==
LOC: CHSPT 17:15
PROVIDERS: Visit Provider Orthopaedic Surgery
DX: M25.512 Pain in left shoulder (principal); Z98.890 Other specified postprocedural states
CPT/HCPCS: 97014; 97110; 97161; G0283

== ENCOUNTER 2025-04-22 07:27 | Outpatient (CLI) | payer OTHER, SELFPAY ==
--- OUTSIDE RECORDS SUMMARY | 2025-04-22 07:33 | XMS_ITS | Encounter Summary ---
Author Organization [facility] Address [address] [place] [address] Care Team Providers Care Herd Tester Name Role Phone Lizbeth Boo Primary Care Provider [phone] Lizbeth Boo Primary Care Provider [phone] Lizbeth Boo Unavailable [phone] Jeff Garcia MD Unavailable [phone] Kenney Martinez APRN Unavailable [phone] Tio Rutledge DO Unavailable Encounter Details Date Type Department Care Team (Late st Contact Info) Description 12/25/2019 Mtime Message Enc [facility] [address] [place] [address], [address] [address] Fernanda Clements, [facility]- Visit Follow Up Social History Tobacco Use [...] Out 03/03/2021 03/03/2021 05/29/2021 7:41 PM CLIENT SOLUTIONS DIRECTOR COVID-19 Rule Out 03/03/2021 03/03/2021 07/27/2021 2:08 PM CLIENT SOLUTIONS DIRECTOR documented as of this encounter Care Teams Herd Tester Relationship Specialty Start Date End Date Lizbeth Boo PA [address] [place] [address] PCP - General PHYSICIAN JOB SETTER 09/03/19 10/12/21 Lizbeth Boo PA [address] [id number] PCP - General PHYSICIAN JOB SETTER 10/13/21 Lizbeth Boo PA [address] [address] PHYSICIAN JOB SETTER 10/13/21 05/01/22 Jeff Garcia MD [address] [address] Consulting Physician INTERVENTIONAL CARDIOLOGY 09/03/19 Kenney Martinez APRN [address] [address] Nurse Practitioner NURSE PRACTITIONER 09/03/19 Tio Rutledge DO [address] [place] [address] INTERNAL MEDICINE 05/02/22 documented as of this encounter
--- OUTSIDE RECORDS SUMMARY | 2025-04-22 07:33 | XMS_ITS | Clinical Summary ---
Author Organization [facility] Address [address] [place] [address] Care Team Providers Care Leave Coordinator Name Role Phone Lizbeth Boo Primary Care Provider [phone] Jeff Garcia MD Unavailable [phone] Kenney Martinez CHLORINE OPERATOR Unavailable [phone] Tio Rutledge DO Unavailable Allergies Active Allergy [...] COVID-19 Vaccine (1 - 2023-2 5 season) 2025 Influenza Adult (#1) 2025 Cervical Cancer Screening Pa p Smear (Age 30 to 64) Every 3 Years 10/14/2026 10/15/2023 Cervical Cancer Screening with HPV 10/14/2026 DTaP, Tdap and Td Vaccines ( 2 - Td or Tdap) 10/30/2027 10/29/2017 Hepatitis A Vaccines Aged Out No long er eligible based on patient's age to complete this topic Meningococcal B Vaccine Aged Out No l [...] Documents on File Type Date Recorded Patient Collaborative Physician Expl anation Power of [employer] 09/14/2019 9:01 AM Florentino Mock, H[facility]- significatn Other; Bebe Edwards, 1st alternate [facility]-other; Advance Directives and Living Will 09/14/2019 8:57 AM [place]IVING [place] ACT DECLARATION Healthcare Agents on File Name Relationship Healthcare Agent Relationship Communication Noel ([facility]) Nish Significant other Health Care Agen t Bebe Edwards Parents First Alterna te Health Care Agent Care Teams Leave Coordinator Relationship Specialty Start Date End Date Lizbeth Boo PA [address] [place] [id number] PCP - General PHYSICIAN MITTEN STITCHER 10/13/21 Jeff Garcia MD [address] [place] [id number] Consulting Physician INTERVENTIONAL CARDIOLOGY 09/03/19 Kenney Martinez APRN [address] [place] [id number] Nurse Practitioner NURSE PRACTITIONER 09/03/19 Tio Rutledge DO [address] [place], [place] [id number] INTERNAL MEDICINE 05/02/22
--- OUTSIDE RECORDS SUMMARY | 2025-04-22 07:33 | XMS_ITS | Clinical Summary ---
Author Organization [facility] Care Team Providers Care Aircraft Powertrain Repairer Name Role Phone Unavailable Primary Care Provider [...] (1 of 2) 2016 Influenza Immunization (#1) 2025 SARS-COV-2 Immunization ( - season) 2025 Respiratory Syncytial Virus (RSV) Immunization (Adult) [...]
--- OUTSIDE RECORDS SUMMARY | 2025-04-22 07:34 | XMS_ITS | Clinical Summary ---
Author Organization [facility] Building [facility] Address [address] [place] [address] Care Team Providers Care Flow Match Sofa Cutter Name Role Phone Anastasia Rodríguez MD Primary Care Provider Marco A Carrion Unavailable [phone] Allergies Active Allergy Reactions Criticality Noted Date Comments Amoxicillin-Pot Clavulanate Anaphylaxis,Hives High 0 09/10/2019 Cephalexin Rash Medium 06/13/2020 Naproxen Hives Medium 03/11/2013 Azithromycin Hives Medium 02/10/2025 Medications hydrOXYzine (VISTARIL) 25 mg capsule Take 1 capsule (25 mg total) by mouth As needed 09/08/19 25 Active gabapentin (NEURONTIN) 600 mg tablet Take 1 tablet (600 mg total) by mouth As Needed 09/09/19 25 Active multivitamin tabletIndicati ons:Vitamin Deficiency Prevention Take 1 tablet by mouth Active omeprazole (PriLOSEC) 40 mg capsule Take 1 capsule (40 mg total) by mouth daily 01/26/20 25 Active senna-docusate (PERICOLACE) 8.6-50 mg Take 1 tablet by mouth 2 (two) times a day as needed for constipation 30 tablet 1 02/19/20 25 Active ondansetron (ZOFRAN) 4 mg tabletIndicati ons:Prevention of Post-Operative Nausea and Vomiting Take 1 tablet (4 mg total) by mouth every 6 (six) hours as needed for nausea or vomiting 30 tablet 1 02/23/20 25 Active oxyCODONE-acet aminophen (PERCOCET) 5-325 mg per tabletIndicati ons:Pain TAKE 1 TABLET BY MOUTH EVERY 6 (SIX) HOURS NEEDED FOR PAIN 28 tablet 04/16/20 25 Active ascorbic acid (VITAMIN C) 500 mg tablet,chewabl e Take 1 tablet/chew tab (500 mg total) by mouth 2 (two) times a day 60 tablet/chew tab 02/19/20 25 025 Discontinued cholecalcifero l (VITAMIN D-3) 2000 unit capsule Take 1 capsule (2,000 Units total) by mouth daily 30 capsule 02/19/20 25 025 Discontinued oxyCODONE-acet aminophen (PERCOCET) 5-325 mg per tabletIndicati ons:Pain TAKE 1 TABLET BY MOUTH EVERY 6 (SIX) HOURS NEEDED FOR PAIN 28 tablet 03/16/20 25 025 Discontinued oxyCODONE-acet aminophen (PERCOCET) 5-325 mg per tabletIndicati ons:Pain TAKE 1 TABLET BY MOUTH EVERY 6 (SIX) HOURS NEEDED FOR PAIN 28 tablet 03/24/20 25 025 Discontinued oxyCODONE-acet aminophen (PERCOCET) 5-325 mg per tabletIndicati ons:Pain TAKE 1 TABLET BY MOUTH EVERY 6 (SIX) HOURS NEEDED FOR PAIN 28 tablet 04/02/20 25 025 Discontinued oxyCODONE-acet aminophen (PERCOCET) 5-325 mg per tabletIndicati ons:Pain TAKE 1 TABLET BY MOUTH EVERY 6 (SIX) HOURS NEEDED FOR PAIN 28 tablet 04/12/20 25 025 Discontinued Active Problems Problem Noted Date Diagnosed Date Traumatic tear of left rotator cuff, initial enc ounter 01/27/2025 Arthritis of left acromioclavicular joint 2024 Biceps tendonitis on left 01/27/2025 Impingement syndrome of left shoulder 01/27/2025 HLD (hyperlipidemia) 05/26/2020 MVP (mitral valve prolapse) 05/26/2020 Blood in stool 05/24/2020 Assessment & Plan (05/24/2020 1:38 PM LOCAL TRUCK DRIVER): Severe constipation for over 1`0 yrs with occ BRB. Never colonoscoped. Diet devoid of fiber so suggested fruit tid, colonoscopy, and on exam today II- III roids. Desires IRC. Will do screening colonoscopy and IRC. Gastroesophageal reflux disease 05/24/2020 Assessment & Plan (05/24/2020 1:39 PM LOCAL TRUCK DRIVER): Severe substernal burning to spicy foods getting worse but some relief with pepcid. notye recent onset dysphagia to solids. Will EGD and possibly dil at time of colonoscopy. Encounter for screening colonoscopy 05/24/2020 Overview (05/24/2020): Added automatically from request for surgery [id number] Dysphagia 05/24/2020 Overview (05/24/2020): Added automatically from request for surgery [id number] Other hemorrhoids 05/24/2020 Overview (05/24/2020): Added automatically from request for surgery [id number] Neuroma 02/18/2020 Strain of right hip adductor muscle 01/08/2020 Greater trochanteric bursitis of right hip 12/24 BARRIENTOS (dyspnea on exertion) 09/07/2019 Encounters Date Type Department Care Team Description 04/05/2025 10:15 AM CDT Office Visit [facility] [address] [place] [phone] Marco A Carrion PA Aftercare following surgery of the musculoskeletal system (Primary Dx); S/P rotator cuff repair 03/17/2025 Telephone [facility] [address] [place] [address] [place] [phone] Marco A Carrion PA 03/03/2025 3:45 PM CDT Office Visit [facility] [address] [place] [phone] Marco A Carrion PA Aftercare following surgery of the musculoskeletal system (Primary Dx); S/P rotator cuff repair 02/23/2025 Telephone [facility] [address] [place] [address] Robi Liao MD 02/23/2025 Telephone [facility] [address] [place] [address] [address] [place] [address] Robi Liao MD 02/22/2025 Telephone [facility] [address] [place] [address] [address] [place] [address] Robi Liao MD Med Refill 02/18/2025 8:35 AM CDT Anesthesia Event [facility] Operating Room [address] [place] [address] Jeff Serrano DO Kory, Christopher James, MD 02/18/2025 8:30 AM CDT - 02/18/2025 10:20 AM CDT Surgery [facility] Operating Room [address] [place] [address] Robi Liao MD Left shoulder arthroscopy, distal claviculectomy including distal articular surface, decompression of subacromial space with partial acromioplasty with coracoacromial release, rotator cuff repair and biceps tenodesis 02/18/2025 6:55 AM CDT - 02/18/2025 2:05 PM CDT Hospital Encounter [facility] Operating Room [address] [place] [address] Robi Liao MD Arthritis of left acromioclavicular joint (Primary Dx); Biceps tendonitis on left; Impingement syndrome of left shoulder; Traumatic tear of left rotator cuff, initial encounter Discharge Disposition: Discharge to home or self care 01/27/2025 Orders Only [facility] [address] [place] [address] [address] [place] [address] Robi Liao MD Arthritis of left acromioclavicular joint (Primary Dx); Traumatic tear of left rotator cuff, unspecified tear extent, initial encounter; Biceps tendinitis of left upper extremity; Impingement syndrome of left shoulder 01/27/2025 Telephone [facility] Operating Room [address] [place] [address] Robi Liao MD from Last 3 Months Surgical History Surgery Date Site/Laterality Comments SECTION section CARPAL TUNNEL RELEASE TUBAL LIGATION 07/08/1992 - 07/07/1993 [facility] REMOVAL 07/08/2012 - 07/07/2013 PYLENODAL CYST REMOVAL-CHAPIN CARDIAC SURGERY 07/08/2019 - 07/07/2020 HEART CATH- [facility] COLONOSCOPY 06/14/2020 1st UPPER GASTROINTESTINAL ENDOSCOPY 06/14/2020 Medical History Medical History Date Comments Hx Other Medical mitral valve pr olapse Hx Other Medical Tubal Heart valve disease mitral valve prolapse Anemia Hypertension Urinary tract infection Dysphagia Aortic stenosis, moderate GERD (gastroesophageal reflux disease) Family History Medical History Relation Name Comments [...] drink containing alc ohol? Monthly or less 02/10/2025 Q2: How many drinks containi ng alcohol do you have on a typical day when you are drinking? 1 or 2 02/10/2025 Q3: How often do you have si x or more drinks on one occasion? Never 02/10/2025 Personal Safety Answer Date Recorded Have you ever been in or are you currently in a harmful physical or emotional relationship or is someone making you feel afraid or unsafe? Denies 02/18/2025 Comments No Sex and Gender Information Value Date Recorded Sex Assigned at Not on file Legal Sex Female 1:25 AM LOCAL TRUCK DRIVER Gender Identity Not on file Sexual Orientation Not on file Obstetrics History Last Filed Vital Signs Vital Sign Reading Time Taken Comments Blood Pressure 136/82 04/05/2025 10:34 AM CDT Pulse 67 04/05/2025 10:34 AM CDT Temperature 36.2 C (97.2 F) 02/18/2025 1:59 PM CDT Respiratory Rate 16 02/18/2025 1:59 PM CDT Oxygen Saturation 99% 02/18/2025 1:59 PM CDT Inhaled Oxygen Concentration - - Weight 59.5 kg (131 lb 3.2 oz) 04/05/2025 10:34 AM CDT Height 165.1 cm (5' 5) 04/05/2025 10:34 AM CDT Body Mass Index 21.83 04/05/2025 10:34 AM CDT Plan of Treatment Health Maintenance [...] on patient's age to complete this topic Medical Devices Implanted Type Area Stacking Machine Operator Device Identifier Shelf Expiration Date Model / Serial / Lot [employer] Suture Blanco Knotless Fibertak 2.6mm Ar-[id number] - [id number] Implanted:Qty: 1 on 02/18/2025 by Robi Liao MD at [facility] Left: Shoulder [employer] 11/04/2029 AR-[id number] / / [id number] [employer] Corkscrew L4.75 Mr Tape Full Thread Blanco Suture Biocomposite Sterile Disposable Latex Free [id number] - [id number] Implanted:Qty: 1 on 02/18/2025 by Robi Liao MD at [facility] Left: Shoulder [employer] [id number] 06/06/2028 AR-[id number] T-475 / / [id number] [employer] Swivelock C 4.75mm 19.1mm Closed Eyelet Vent Blanco Suture Ar-2324bcc - [id number] Implanted:Qty: 1 on 02/18/2025 by Robi Liao MD at [facility] Left: Shoulder [employer] 09/04/2028 AR-[id number] C / / [id number] Procedures Procedure Name Priority Date/Time Associated Diagnosis Comments NJ AN ELECTIVE ENDOTRACHEAL AIRWAY Routine 02/18/2025 9:10 AM CDT ARTHROSCOPY SHOULDER 02/18/2025 8:34 AM CDT Traumatic tear of left rotator cuff, initial encounter Arthritis of left acromioclavicular joint Biceps tendonitis on left Impingement syndrome of left shoulder ANESTHESIA PERIPHERAL BLOCK Routine 02/18/2025 8:30 AM CDT PAIN BLOCK Routine 02/18/2025 7:15 AM CDT COLONOSCOPY 06/14/2020 10:33 AM LOCAL TRUCK DRIVER from Last 3 Months or Most Recently Relevant to Health Maintenance Results * NJ AN ELECTIVE ENDOTRACHEAL AIRWAY (02/18/2025 9:10 AM CDT) Narrative Larisa Garcia CRNA - 02/18/2025 9:10 AM CDT Larisa Garcia CRNA 02/18/2025 9:11 AM Airway Patient location: OR Urgency: elective Date/time: 02/18/2025 8:42 AM Indications for airway management: anesthesia Difficult airway: no Staff: Placed by: ENGINEERING TEACHER: Larisa Garcia CRNA Emergent airway documentation: Risks and benefits discussed: yes Consent obtained: yes Consent given by: patient Airway prep: Preoxygenated: yes Patient position: sniffing Mask difficulty assessment: 1 - vent by mask Spontaneous ventilation during airway: absent Sedation level during airway: GA Final airway details: Final airway type: endotracheal airway Tube type: ETT ETT size: 7.0 mm Cuffed: yes Technique used for successful ETT placement: video laryngoscopy Devices/Methods used in placement: stylet Insertion site: oral Video blade type: Kimball Blade size: 3 Cormack-Lehane (video): grade I - full view of glottis Cuff inflated with: air ETT to lips: 20 cm Placement verified by: auscultation and CO2 detection Airway secured with: transpore tape Number of attempts: 1 Jeff Serrano DO ANESTHESIA ORDERABL ES Final Result * BW IP ANE LDA PERIPHERAL NERVE CATHETER (02/18/2025 8:30 AM CDT) Narrative Sivakumar Heck MD - 02/18/2025 8:30 AM CDT Sivakumar Heck MD 02/18/2025 8:30 AM Peripheral Block Patient location during procedure: block room Start time: 02/18/2025 8:10 AM End time: 02/18/2025 8:20 AM Reason for block: post-op pain management per surgeon request Ultrasound image in chart or stored: yes Block type: catheter continuous infusion Laterality: left Block type: brachial plexus - interscalene Staff: Placed by: Anesthesiologist: Sivakumar Heck MD Procedure prep: Preprocedure checklist: patient identified, procedure contraindications assessed, site marked, procedure consent, surgical consent, IV checked, risks, benefits and alternatives discussed, monitors and equipment checked and timeout performed Patient position: supine and head of bed elevated Procedure performed while patient: sedate with meaningful contact Monitoring: ECG, oximetry, blood pressure and capnography Supplemental O2: nasal cannula Prep solution: chlorhexidine/alcohol PPE: provider hat/mask, sterile gloves, sterile drape and sterile probe cover and gel Skin infiltrated with lidocaine 1%: yes Peripheral nerve block: Technique: ultrasound guided Needle type: insulated Needle gauge: 18 G Needle length: 100 mm Injection assessment: injection made incrementally with constant monitoring, local visualized surrounding nerve on ultrasound, negative aspiration for heme, no paresthesias noted and see flowsheet for medication details Assessment: Block success: full evaluation pending Events: patient tolerated procedure well with no complications us Sivakumar Heck MD ANESTHESIA ORDERABLES Fi nal Result * COLONOSCOPY (06/14/2020 10:33 AM LOCAL TRUCK DRIVER) Anatomical Region Laterality Modality Other Narrative Procedure Note Lobo Little MD - 06/14/2020 10:33 AM CST [facility] Patient Name: Tatiana Baron Procedure Date: 06/14/2020 10:33 AM Date of : 1965 Admit Type: Outpatient Age: 54 Gender: Female Attending MD: Lobo Little M.D. Room: [facility] ENDOSCOPY ROOM 2 Note Status: Finalized [...] scope was passed under direct vision.The Colonoscope [id number] was introducedthrough the anus and advanced to [...] 10:33 AM Procedure Code(s): --- Professional --- 09764, Colonoscopy, flexible; with removal of tumor(s), polyp(s), or other lesion(s) by hot biopsy forceps Diagnosis Code(s): --- Professional --- K62.1, Rectal polyp K64.9, Unspecified hemorrhoids Z12.11, Encounter for screening for malignant neoplasm of colon CPT copyright 2017 [employer]. All rights reserved. The codes documented in this report are preliminary and upon hospital coder reviewmay be revised to meet current compliance requirements. Recognized by the [employer] for promoting quality in endoscopy Lobo Little MD ENDOSCOPY PROCEDURES Final Re sult from Last 3 Months or Most Recently Relevant to Health Maintenance Insurance [facility] Advance Directives For more information, please contact: [phone] * Full Code (Latest Code Status on File) Date Activated Date Inactivated Comments 06/14/2020 9:49 AM 06/14/2020 4:08 PM * Full Code Date Activated Date Inactivated Comments 06/14/2020 9:49 AM 06/14/2020 9:49 AM Care Teams Flow Match Sofa Cutter Relationship Specialty Start Date End Date Anastasia Rodríguez MD [address] [place], [place] [id number] PCP - General Family Medicine 02/08/25 Marco A Carrion PA [address] [place] [address] [place] [address] Physician Well Logger Orthopedic Surgery 02/18/25
[2025-04-22 07:56] LABS: Hematocrit 41.4 % (35.0-49.0); Hemoglobin 13.9 g/dL (12.0-15.0); Immature Granulocyte Percent A 0.2 % (0.0-0.0); Lymphocytes Absolute Auto 1.44 K/mm3 (1.10-4.50); Mean Corpuscular HGB Conc 33.6 g/dL (32-36); Mean Corpuscular Hemoglobin 32.7 pg (27.0-31.0); Mean Corpuscular Volume 97.4 fL (78.0-102.0); Nucleated Red Blood Cells Absolute Auto 0.00 K/mm3 (0.00-0.00); Nucleated Red Blood Cells Perc 0.0 % (0-0.0); Platelet Count Result 289 K/mm3 (150-420); Red Blood Count 4.25 M/mm3 (4.20-5.40); White Blood Count 6.0 K/mm3 (4.8-10.8)
[2025-04-22 08:28] LABS: Hemoglobin A1C 5.3 % (<5.7)
[2025-04-22 08:34] LABS: Alanine Aminotransferase 27 U/L (6-35); Albumin Level 4.7 g/dL (3.5-5.1); Alkaline Phosphatase 77 U/L (38-126); Anion Gap 9 mmol/L (4-12); Aspartate Amino Transferase 28 U/L (14-36); Bilirubin,Total 1.1 mg/dL (0.2-1.3); Blood Urea Nitrogen 21 mg/dL (7-17); Calcium 10.1 mg/dL (8.4-10.2); Carbon Dioxide 29 mmol/L (22-30); Chloride 107 mmol/L (98-107); Cholesterol 213 mg/dL (0-200); Estimated Glomerular Filt Rate > 60; Glucose 103 mg/dL (65-110); HDL Direct 79 mg/dL; Osmolality Calculated 303 mOsm/kg (285-295); Potassium 4.5 mmol/L (3.4-5.0); Sodium 145 mmol/L (137-145); Total Protein 8.2 g/dL (6.3-8.2); Triglycerides 75 mg/dL (<150)
[2025-04-22 08:51] LABS: Free T3 4.57 pg/mL (2.18-3.98)
[2025-04-22 09:04] LABS: Thyroid Stimulating Hormone 1.440 uIU/mL (0.465-4.680)
[2025-04-23 09:09] LABS: FSH 109.0 mIU/mL (.); T4,Free (Direct) 1.16 ng/dL (0.82-1.77)
[2025-04-25 14:08] LABS: Free Testosterone (Direct) 1.4 pg/mL (0.0-4.2)
[2025-04-28 08:09] LABS: Estradiol, Sensitive 3.6 pg/mL (.)
== END 2025-04-22 07:28 | disposition home or self-care (01) ==
LOC: CHSLAB 07:31
PROVIDERS: PCP Family Medicine; Visit Provider Family Medicine
DX: Z78.0 Asymptomatic menopausal state (principal); E78.5 Hyperlipidemia, unspecified; R63.1 Polydipsia; E24.9 Cushing's syndrome, unspecified
CPT/HCPCS: 36415; 80053; 80061; 82306; 82530; 82670; 83001; 83036; 84270; 84402; 84403; 84439; 84443; 84481; 85025

== ENCOUNTER 2025-04-29 07:57 | Outpatient (CLI) | payer OTHER, SELFPAY ==
--- NOTE | ~2025-04-29 | US_ITS ---
EXAMINATION: US aorta, 04/29/2025 8:03 CDT HISTORY: I71.40 - Abdominal aortic aneurysm, without rupture, unsp... Comparison: None Technique: Fournier-scale and color Doppler images were obtained. Findings: There is no aneurysm identified, minimal scattered atherosclerotic plaque, the visualized proximal common iliac vessels are unremarkable. IMPRESSION: No aneurysm identified Reviewed, dictated and finalized at location P. IMPRESSION: No aneurysm identified
--- OUTSIDE RECORDS SUMMARY | 2025-04-29 08:06 | XMS_ITS | Clinical Summary ---
Author Organization [facility] Address [address] [place] [address] Care Team Providers Care Chief Arson Division Name Role Phone Lizbeth Boo Primary Care Provider [phone] Jeff Garcia MD Unavailable [phone] Kenney Martinez ORNAMENTAL METAL WORKER Unavailable [phone] Tio Rutledge DO Unavailable Allergies Active Allergy [...] Screening 09/14/2021 09/15/2019 COVID-19 Vaccine (1 - 2024-2 6 season) 2025 Influenza Adult (#1) 2025 Cervical [...] Documents on File Type Date Recorded Patient Bridge Expert Expl anation Power of Warehouse Driver 09/14/2019 9:01 AM Florentino Mock, [facility]- significatn Other; Bebe Edwards, 1st alternate [facility]-other; Advance Directives and Living Will 09/14/2019 8:57 AM [place]AR[place] Healthcare Agents on File Name Relationship Healthcare Agent Relationship Communication Noel ([facility]) Nish Significant other Health Care Agen t Bebe Edwards Parents First Alterna te Health Care Agent Care Teams Chief Arson Division Relationship Specialty Start Date End Date Lizbeth Boo PA [address] [place] [id number] PCP - General PHYSICIAN PARLOR MAID 10/13/21 Jeff Garcia MD [address] [place] [id number] Consulting Physician INTERVENTIONAL CARDIOLOGY 09/03/19 Kenney Martinez APRN [address] [place] [id number] Nurse Practitioner NURSE PRACTITIONER 09/03/19 Tio Rutledge DO [address] [place], [place] [id number] INTERNAL MEDICINE 05/02/22
--- OUTSIDE RECORDS SUMMARY | 2025-04-29 08:06 | XMS_ITS | Clinical Summary ---
Author Organization [facility] Medical Office Building B Address [address] [place] [address] Care Team Providers Care Chief Growth Officer Name Role Phone Anastasia Rodríguez MD Primary Care Provider Marco A Carrion Unavailable Allergies Active Allergy Reactions Criticality Noted [...] 05/24/2020 Assessment & Plan (05/24/2020 1:38 PM COUNTER CASER): Severe constipation for over 1`0 yrs with occ BRB. Never colonoscoped. Diet devoid of fiber so suggested fruit tid, colonoscopy, and on exam today II- III roids. Desires IRC. Will do screening colonoscopy and IRC. Gastroesophageal reflux disease 05/24/2020 Assessment & Plan (05/24/2020 1:39 PM COUNTER CASER): Severe substernal burning to spicy foods getting worse but some relief with pepcid. notye recent onset dysphagia to solids. Will EGD and possibly dil at time of colonoscopy. Encounter for screening colonoscopy 05/24/2020 Overview (05/24/2020): Added automatically from request for surgery [id number] Dysphagia 05/24/2020 Overview (05/24/2020): Added automatically from request for surgery [id number] Other hemorrhoids 05/24/2020 Overview (05/24/2020): Added automatically from request for surgery [id number] Neuroma 02/18/2020 Strain of right hip adductor muscle 01/08/2020 Greater trochanteric bursitis of right hip 12/24 BARRIENTOS (dyspnea on exertion) 09/07/2019 Encounters Date Type Department Care Team Description 04/05/2025 10:15 AM CDT Office Visit [facility] [address] [place] [phone] Marco A Carrion PA Aftercare following surgery of the musculoskeletal system (Primary Dx); S/P rotator cuff repair 03/17/2025 Telephone [facility] [address] [place] [address] [place] [phone] Marco A Carrion PA 03/03/2025 3:45 PM CDT Office Visit [facility] [address] [place] [phone] Marco A Carrion PA Aftercare following surgery of the musculoskeletal system (Primary Dx); S/P rotator cuff repair 02/23/2025 Telephone [facility] [address] [place] [address] [address] [place] [phone] Robi Liao MD 02/23/2025 Telephone [facility] [address] [place] [address] [address] [place] [phone] Robi Liao MD 02/22/2025 Telephone [facility] [address] [facility] [address] [place] [phone] Robi Liao MD Med Refill 02/18/2025 8:35 AM CDT Anesthesia Event [facility] Operating Room [address] [place] [address] Jeff Serrano, Diomedes Garrett MD 02/18/2025 8:30 AM CDT - 02/18/2025 10:20 AM CDT Surgery [facility] Operating Room [address] [place] [address] Robi Liao MD Left shoulder arthroscopy, distal claviculectomy including distal articular surface, decompression of subacromial space with partial acromioplasty with coracoacromial release, rotator cuff repair and biceps tenodesis 02/18/2025 6:55 AM CDT - 02/18/2025 2:05 PM CDT Hospital Encounter [facility] Operating Room [address] [place] [address] Robi Liao MD Arthritis of left acromioclavicular joint (Primary Dx); Biceps tendonitis on left; Impingement syndrome of left shoulder; Traumatic tear of left rotator cuff, initial encounter Discharge Disposition: Discharge to home or self care 01/27/2025 Orders Only [facility] [address] [place] [address] [address] [place] [phone] Robi Liao MD Arthritis of left acromioclavicular joint (Primary Dx); Traumatic tear of left rotator cuff, unspecified tear extent, initial encounter; Biceps tendinitis of left upper extremity; Impingement syndrome of left shoulder 01/27/2025 Telephone [facility] Operating Room [address] [place] [address] Robi Liao MD from Last 3 Months Surgical History Surgery Date Site/Laterality Comments SECTION section CARPAL TUNNEL RELEASE TUBAL LIGATION 07/08/1992 - 07/07/1993 [facility] CYST REMOVAL 07/08/2012 - 07/07/2013 PYLENODAL CYST REMOVAL-JAVA CARDIAC SURGERY 07/08/2019 - 07/07/2020 HEART CATH- [facility] COLONOSCOPY 06/14/2020 1st UPPER GASTROINTESTINAL ENDOSCOPY 06/14/2020 [...] on file Legal Sex Female 1:25 AM COUNTER CASER Gender Identity Not on file Sexual Orientation [...] this topic Medical Devices Implanted Type Area Branch Service Leader Device Identifier Shelf Expiration Date Model / Serial / Lot [employer] Suture [place] Knotless Fibertak 2.6mm Ar-3641sp - [id number] Implanted:Qty: 1 on 02/18/2025 by Robi Liao MD at [facility] Left: Shoulder [employer] 11/04/2029 AR-[id number] / / [id number] [employer] Corkscrew L4.75 Mr Tape Full Thread [place] Suture Biocomposite Sterile Disposable Latex Free [id number] - [id number] Implanted:Qty: 1 on 02/18/2025 by Robi Liao MD at [facility] Left: Shoulder [employer] [id number] 06/06/2028 [id number] T-475 / / [id number] [employer] Swivelock C 4.75mm 19.1mm Closed Eyelet Vent [place]mont Suture Ar-2324bcc - [id number] Implanted:Qty: 1 on 02/18/2025 by Robi Liao MD at [facility] Left: Shoulder [employer] 09/04/2028 AR-[id number] C / / [id number] Procedures Procedure Name Priority Date/Time Associated Diagnosis Comments TN AN ELECTIVE ENDOTRACHEAL AIRWAY Routine 02/18/2025 9:10 AM CDT ARTHROSCOPY SHOULDER 02/18/2025 8:34 AM CDT Traumatic tear of left rotator cuff, initial encounter Arthritis of left acromioclavicular joint Biceps tendonitis on left Impingement syndrome of left shoulder ANESTHESIA PERIPHERAL BLOCK Routine 02/18/2025 8:30 AM CDT PAIN BLOCK Routine 02/18/2025 7:15 AM CDT COLONOSCOPY 06/14/2020 10:33 AM COUNTER CASER from Last 3 Months or Most Recently Relevant to Health Maintenance Results * TN AN ELECTIVE ENDOTRACHEAL AIRWAY (02/18/2025 9:10 AM CDT) Narrative Larisa Garcia CRNA - 02/18/2025 9:10 AM CDT Larisa Garcia CRNA 02/18/2025 9:11 AM Airway Patient location: OR Urgency: elective Date/time: 02/18/2025 8:42 AM Indications for airway management: anesthesia Difficult airway: no Staff: Placed by: AIRCRAFT STRUCTURAL DESIGN ENGINEER: Larisa Garcia CRNA Emergent airway documentation: Risks [...] nal Result * COLONOSCOPY (06/14/2020 10:33 AM COUNTER CASER) Anatomical Region Laterality Modality Other Narrative Procedure Note Lobo Little MD - 06/14/2020 10:33 AM CST [facility] Patient Name: Tatiana Baron Procedure Date: 06/14/2020 10:33 AM Date of : 1965 Admit Type: Outpatient Age: 54 Gender: Female Attending MD: Lobo Little M.D. Room: [facility] ENDOSCOPY ROOM 2 Note Status: [...] scope was passed under direct vision.The Colonoscope [id number] was introducedthrough the anus and advanced to [...] 10:33 AM Procedure Code(s): --- Professional --- 03045, Colonoscopy, flexible; with removal of tumor(s), polyp(s), or other lesion(s) by hot biopsy forceps Diagnosis Code(s): --- Professional --- K62.1, Rectal polyp K64.9, Unspecified hemorrhoids Z12.11, Encounter for screening for malignant neoplasm of colon CPT copyright 2017 [employer]. All rights reserved. The codes documented in this report are preliminary and upon baseball inspector reviewmay be revised to meet current compliance requirements. Recognized by the [employer] for promoting quality in endoscopy Lobo Little MD ENDOSCOPY PROCEDURES Final Re sult from Last 3 Months or Most Recently Relevant to Health Maintenance Insurance [facility] Advance Directives For more information, please contact: [phone] * Full Code (Latest Code Status on File) Date Activated Date Inactivated Comments 06/14/2020 9:49 AM 06/14/2020 4:08 PM * Full Code Date Activated Date Inactivated Comments 06/14/2020 9:49 AM 06/14/2020 9:49 AM Care Teams Chief Growth Officer Relationship Specialty Start Date End Date Anastasia Rodríguez MD [address] [place] [id number] PCP - General Family Medicine 02/08/25 Marc oA Carrion PA [address] [place] [address] [place] [address] Physician Printing Estimator Orthopedic Surgery 02/18/25
--- OUTSIDE RECORDS SUMMARY | 2025-04-29 08:06 | XMS_ITS | Encounter Summary ---
Author Organization [facility] Address [address] [place] [address] Care Team Providers Care Wind Farm Support Specialist Name Role Phone Lizbeth Boo Primary Care Provider [phone] Lizbeth Boo Primary Care Provider [phone] Lizbeth Boo Unavailable [phone] Jeff Garcia MD Unavailable [phone] Kenney Martinez APRN Unavailable [phone] Tio Rutledge DO Unavailable Encounter Details Date Type Department Care Team (Late st Contact Info) Description 12/25/2019 [email or web address] Message Enc [facility] [address] [place] [id number] Fernanda Clements, [address] [id number] Visit Follow Up Social History Tobacco Use [...] Rule Out 03/03/2021 03/03/2021 05/29/2021 7:41 PM SENIOR COGNOS DEVELOPER COVID-19 Rule Out 03/03/2021 03/03/2021 07/27/2021 2:08 PM SENIOR COGNOS DEVELOPER documented as of this encounter Care Teams Wind Farm Support Specialist Relationship Specialty Start Date End Date Lizbeth Boo PA [address] [place] [address] PCP - General PHYSICIAN AUTOMOBILE ASSEMBLY SUPERVISOR 09/03/19 10/12/21 Lizbeth Boo PA [address] [place] [address] PCP - General PHYSICIAN AUTOMOBILE ASSEMBLY SUPERVISOR 10/13/21 Lizbeth Boo PA [address] [address] PHYSICIAN AUTOMOBILE ASSEMBLY SUPERVISOR 10/13/21 05/01/22 Jeff Garcia MD [address] [address] Consulting Physician INTERVENTIONAL CARDIOLOGY 09/03/19 Kenney Martinez APRN [address] [address] Nurse Practitioner NURSE PRACTITIONER 09/03/19 Tio Rutledge DO [address] [facility] [address] [place] [address] INTERNAL MEDICINE 05/02/22 documented as of this encounter
--- OUTSIDE RECORDS SUMMARY | 2025-04-29 08:06 | XMS_ITS | Clinical Summary ---
Author Organization [facility] Care Team Providers Care Special Procedures Technologist Name Role Phone Unavailable Primary Care Provider [...]
== END 2025-04-29 07:58 | disposition home or self-care (01) ==
LOC: CHSIMG 07:59
PROVIDERS: PCP Family Medicine; Visit Provider Internal Medicine Cardiovascular Disease
DX: I71.40 Abdominal aortic aneurysm, without rupture, unspecified (principal)
CPT/HCPCS: 76775

== ENCOUNTER 2025-07-03 14:21 | Emergency (ER) | payer OTHER, SELFPAY ==
--- NOTE | ~2025-07-03 | CT_ITS ---
EXAMINATION: CT abdomen pelvis w con DATE: 07/03/2025 17:00 INDICATION: Abdominal pain. History of left nephrolithiasis. TECHNIQUE: Computed tomography (CT) of the abdomen and pelvis was performed 100 cc intravenous contrast. Automated exposure control and iterative reconstruction technique were employed. The dose-length product was 180.63 mGy-cm. COMPARISON: The abdomen and pelvis dated 01/25/2025. FINDINGS: Lung bases do not show acute findings. Significant calcific changes of aortic valve cusps indicating probably significant aortic stenosis. Mild hepatomegaly. Normal size spleen. Gallbladder shows no acute findings. Suggestion of possible noncalcified gallstone. Pancreas shows no acute findings. Stable 1 cm size left adrenal adenoma. 1 cm size calculus of left kidney. Minimal left hydronephrosis. No evidence of ureteric calculi. No bladder calculi. No inflammatory changes in the pelvis. No free fluid or free air. Appendix is not distinctly visible.. IMPRESSION: 1. 1 cm size left renal calculus with mild left hydronephrosis. No hydroureter. 2. Stable left adrenal adenoma 1 cm in size. 3. Calcific changes of aortic valve cusps still of some degree of aortic stenosis. Please correlate with echocardiographic findings. 4. Possible noncalcified gallstone in the gallbladder. Correlation with ultrasound gallbladder is suggested. Reviewed, dictated and finalized at location [facility] IMPRESSION: 1. 1 cm size left renal calculus with mild left hydronephrosis. No hydroureter. 2. Stable left adrenal adenoma 1 cm in size. 3. Calcific changes of aortic valve cusps still of some degree of aortic stenos is. Please correlate with echocardiographic findings. 4. Possible noncalcified gallstone in the gallbladder. Correlation with ultraso und gallbladder is suggested.
--- OUTSIDE RECORDS SUMMARY | 2025-07-03 14:22 | XMS_ITS | Clinical Summary ---
Author Organization [facility] Care Team Providers Care Supervisor Drying Name Role Phone Unavailable Primary Care Provider [...]
--- OUTSIDE RECORDS SUMMARY | 2025-07-03 14:22 | XMS_ITS | Clinical Summary ---
Author Organization [facility] Address [address] [place] [address] Care Team Providers Care Cleaner Greaser Name Role Phone Lizbeth Boo Primary Care Provider [phone] Jeff Garcia MD Unavailable [phone] Kenney Martinez CUTLET MAKER PORK Unavailable [phone] Tio Rutledge DO Unavailable Allergies Active Allergy [...] 09/07/2019 MVP (mitral valve prolapse) HLD (hyperlipidemia) Encounters Date Type Department Care Team Description 05/24/2025 Travel from Last 3 Months Family History Medical History Relation Comments Hypertension [...] Former Cigarettes 0.5 47 1 970 - 2017 Smokeless Tobacco: Never Comments:smokes marijuana Alcohol Use Standard Drinks/Week Comments Not Currently 0 (1 standard drink = 0.6 oz pur e alcohol) occasionally Comments Unknown Sex and Gender Information Value Date Recorded Sex Assigned at Female 05/24/2025 1:10 PM UX LEAD Legal Sex Female 8:28 PM CDT Gender [...] 2016 Mammogram Screening 09/14/2021 09/15/2019 COVID-19 Vaccine ( - 2024-2 6 season) 2025 Influenza Adult [...] Most Recently Relevant to Health Maintenance Insurance [employer] Member Subscriber Plan / Payer (Ef fective 2019-Present) Name:Tod Tatiana Kaye Relation to Subscriber:Self Name:Tod Tatiana Kaye Payer ID:[id number] (NAIC) Group ID:Not on file Type:Not on file Address: [place] [phone] Advance Directives Documents on File Type Date Recorded Patient Life Support Technician Expl anation Power of Supervisor Wet Room 09/14/2019 9:01 AM Florentino Mock, [facility]- significatn Other; Bebe Edwards, 1st alternate [facility]-other; Advance Directives and Living Will 09/14/2019 8:57 AM [place]CLAR[place] Healthcare Agents on File Name Relationship Healthcare Agent Relationship Communication Noel (POAH) Nish Significant other Health Care Agen t Bebe Edwards Parents First Alterna te Health Care Agent Care Teams Cleaner Greaser Relationship Specialty Start Date End Date Lizbeth Boo PA [address] [place] [address] PCP - General PHYSICIAN DISCHARGE PLANNER 10/13/21 Jeff Garcia MD [address] [place] [address] Consulting Physician INTERVENTIONAL CARDIOLOGY 09/03/19 Kenney Martinez APRN [address] [place] [address] Nurse Practitioner NURSE PRACTITIONER 09/03/19 Tio Rutledge DO [address] [place] [address] INTERNAL MEDICINE 05/02/22
--- OUTSIDE RECORDS SUMMARY | 2025-07-03 14:23 | XMS_ITS | Clinical Summary ---
Author Organization [facility] Medical Office Building B Address [address] [place] [address] Care Team Providers Care Plating Engineer Name Role Phone Anastasia Rodríguez MD Primary Care Provider Marco A Carrion Unavailable [phone] Allergies Active Allergy Reactions Criticality Noted Date Comments Amoxicillin-Pot Clavulanate Anaphylaxis,Hives High 0 09/10/2019 Cephalexin Rash Medium 06/13/2020 Naproxen Hives Medium 03/11/2013 Azithromycin Hives Medium 02/10/2025 Medications hydrOXYzine (VISTARIL) 25 mg capsule Take 1 capsule (25 mg total) by mouth As needed 09/07/2024 Active gabapentin (NEURONTIN) 600 mg tablet Take 1 tablet (600 mg total) by mouth As Needed 09/08/2024 Active multivitamin tabletIndicatio ns:Vitamin Deficiency Prevention Take 1 tablet by mouth Active omeprazole (PriLOSEC) 40 mg capsule Take 1 capsule (40 mg total) by mouth daily 01/25/2025 Active ondansetron (ZOFRAN) 4 mg tabletIndicatio ns:Prevention of Post-Operative Nausea and Vomiting Take 1 tablet (4 mg total) by mouth every 6 (six) hours as needed for nausea or vomiting 30 tablet 1 02/22/2025 Active senna-docusate (Senna with Docusate Sodium) 8.6-50 mg Take 1 tablet twice a day by oral route as needed. Active estradioL (ESTRACE) 0.01 % (0.1 mg/gram) vaginal cream 05/07/2025 Activ e oxyCODONE-aceta minophen (PERCOCET) 5-325 mg per tabletIndicatio ns:Pain TAKE 1 TABLET BY MOUTH EVERY 6 (SIX) HOURS NEEDED FOR PAIN 28 tablet 05/27/2025 Active Active Problems Problem Noted Date Diagnosed Date Traumatic tear of left rotator cuff, initial enc ounter 01/27/2025 Arthritis of left acromioclavicular joint 2024 Biceps tendonitis on left 01/27/2025 Impingement syndrome of left shoulder 01/27/2025 HLD (hyperlipidemia) 05/26/2020 MVP (mitral valve prolapse) 05/26/2020 Blood in stool 05/24/2020 Assessment & Plan (05/24/2020 1:38 PM ALLIED HEALTH PROFESSIONAL): Severe constipation for over 1`0 yrs with occ BRB. Never colonoscoped. Diet devoid of fiber so suggested fruit tid, colonoscopy, and on exam today II- III roids. Desires IRC. Will do screening colonoscopy and IRC. Gastroesophageal reflux disease 05/24/2020 Assessment & Plan (05/24/2020 1:39 PM ALLIED HEALTH PROFESSIONAL): Severe substernal burning to spicy foods getting worse but some relief with pepcid. notye recent onset dysphagia to solids. Will EGD and possibly dil at time of colonoscopy. Encounter for screening colonoscopy 05/24/2020 Overview (05/24/2020): Added automatically from request for surgery [id number] Dysphagia 05/24/2020 Overview (05/24/2020): Added automatically from request for surgery [id number] Other hemorrhoids 05/24/2020 Overview (05/24/2020): Added automatically from request for surgery [id number] Neuroma 02/18/2020 Strain of right hip adductor muscle 01/08/2020 Greater trochanteric bursitis of right hip 12/24 BARRIENTOS (dyspnea on exertion) 09/07/2019 Encounters Date Type Department Care Team Description 05/20/2025 10:29 AM ALLIED HEALTH PROFESSIONAL - 05/20/2025 11:59 PM ALLIED HEALTH PROFESSIONAL Hospital Encounter [facility] [address] [place] [address] Encounter for disability determination Discharge Disposition: Discharge to home or self care 05/19/2025 10:45 AM ALLIED HEALTH PROFESSIONAL Office Visit [facility] [address] [place] [phone] Marco A Carrion PA Aftercare following surgery of the musculoskeletal system (Primary Dx); S/P rotator cuff repair 04/05/2025 10:15 AM CDT Office Visit [facility] [address] [place] [phone] Marco A Carrion PA Aftercare following surgery of the musculoskeletal system (Primary Dx); S/P rotator cuff repair from Last 3 Months Surgical History Surgery Date Site/Laterality Comments SECTION section CARPAL TUNNEL RELEASE TUBAL LIGATION 07/08/1992 - 07/07/1993 [facility] CYST REMOVAL 07/08/2012 - 07/07/2013 PYLENODAL CYST REMOVAL-[place] CARDIAC SURGERY 07/08/2019 - 07/07/2020 HEART CATH- [facility] COLONOSCOPY 06/14/2020 1st UPPER GASTROINTESTINAL ENDOSCOPY [...] on file Legal Sex Female 1:25 AM ALLIED HEALTH PROFESSIONAL Gender Identity Not on file Sexual Orientation Not on file Last Filed Vital Signs Vital Sign Reading Time Taken Comments Blood Pressure 118/88 05/19/2025 10:55 AM ALLIED HEALTH PROFESSIONAL Pulse 89 05/19/2025 10:55 AM ALLIED HEALTH PROFESSIONAL Temperature 36.2 C (97.2 F) 02/18/2025 1:59 PM CDT Respiratory Rate 16 02/18/2025 1:59 PM CDT Oxygen Saturation 99% 02/18/2025 1:59 PM CDT Inhaled Oxygen Concentration - - Weight 59.4 kg (131 lb) 05/19/2025 10:55 AM ALLIED HEALTH PROFESSIONAL Height 165.1 cm (5' 5) 05/19/2025 10:55 AM ALLIED HEALTH PROFESSIONAL Body Mass Index 21.8 05/19/2025 10:55 AM ALLIED HEALTH PROFESSIONAL Plan of Treatment Health Maintenance Due Date [...] this topic Medical Devices Implanted Type Area Judo Teacher Device Identifier Shelf Expiration Date Model / Serial / Lot [employer] Suture [place] Knotless Fibertak 2.6mm Ar-3641sp - [id number] Implanted:Qty: 1 on 02/18/2025 by Robi Liao MD at [facility] Left: Shoulder [employer] 11/04/2029 AR-3641SP / / [id number] [employer] Corkscrew L4.75 Mr Tape Full Thread [place] Suture Biocomposite Sterile Disposable Latex Free [id number] - [id number] Implanted:Qty: 1 on 02/18/2025 by Robi Liao MD at [facility] Left: Shoulder [employer] [id number] 06/06/2028 AR-[id number] T-475 / / [id number] [employer] Swivelock C 4.75mm 19.1mm Closed Eyelet Vent [place] Suture Ar-2324bcc - [id number] Implanted:Qty: 1 on 02/18/2025 by Robi Liao MD at [facility] Left: Shoulder [employer] 09/04/2028 AR-2324BC C / / [id number] Procedures Procedure Name Priority Date/Time Associated Diagnosis Comments XR HIP RIGHT W PELVIS 2 OR 3 VIEWS Schedule Routine, Read Routine (OP Routine) 05/20/2025 10:43 AM ALLIED HEALTH PROFESSIONAL Encounter for disability determination COLONOSCOPY 06/14/2020 10:33 AM ALLIED HEALTH PROFESSIONAL from Last 3 Months or Most Recently Relevant to Health Maintenance Results * XR Hip Right W Pelvis 2 or 3 Views (05/20/2025 10:43 AM ALLIED HEALTH PROFESSIONAL) Anatomical Region Laterality Modality Lower Extremities, Hip, Pelvis Right C omputed Radiography 05/20/2025 2:41 PM ALLIED HEALTH PROFESSIONAL Impressions 05/20/2025 2:41 PM ALLIED HEALTH PROFESSIONAL 1. No acute osseous abnormality of the pelvis]. 2. Minimal arthritic change. Electronically signed by: Raphael Patterson M.D. Narrative 05/20/2025 2:41 PM ALLIED HEALTH PROFESSIONAL EXAM DESCRIPTION: XR HIP RIGHT 2 OR 3 VIEWS W PELVIS REASON FOR STUDY: disability determinations TECHNIQUE: XR HIP RIGHT 2 VIEWS W PELVIS COMPARISON: None. FINDINGS: Both femoral heads project normally with the acetabula. Minimal arthritic change. Sacroiliac joints and pubic symphysis intact. Obturator intact. Pubic symphysis intact. Procedure Note Raphael Patterson MD - 05/20/2025 EXAM DESCRIPTION: XR HIP RIGHT 2 OR 3 VIEWS W PELVIS REASON FOR STUDY: disability determinations TECHNIQUE: XR HIP RIGHT 2 VIEWS W PELVIS COMPARISON: None. FINDINGS: Both femoral heads project normally with the acetabula. Minimal arthritic change. Sacroiliac joints and pubic symphysis intact. Obturator intact. Pubic symphysis intact. IMPRESSION: 1. No acute osseous abnormality of the pelvis]. 2. Minimal arthritic change. Electronically signed by: Raphael Patterson M.D. Vidal Martinez MD IMG XR PROCEDURES Final Result * COLONOSCOPY (06/14/2020 10:33 AM ALLIED HEALTH PROFESSIONAL) Anatomical Region Laterality Modality Other Narrative Procedure Note Lobo Little MD - 06/14/2020 10:33 AM CST [facility] Patient Name: Tatiana Baron Procedure Date: 06/14/2020 10:33 AM Date of : 1965 Admit Type: Outpatient Age: 54 Gender: Female Attending MD: Lobo Little M.D. Room: [facility] ENDOSCOPY ROOM 2 Note Status: Finalized [...] scope was passed under direct vision.The Colonoscope [id number] was introducedthrough the anus and advanced to [...] 10:33 AM Procedure Code(s): --- Professional --- 29610, Colonoscopy, flexible; with removal of tumor(s), polyp(s), or other lesion(s) by hot biopsy forceps Diagnosis Code(s): --- Professional --- K62.1, Rectal polyp K64.9, Unspecified hemorrhoids Z12.11, Encounter for screening for malignant neoplasm of colon CPT copyright 2017 [place] [employer]. All rights reserved. The codes documented in this report are preliminary and upon printer apprentice reviewmay be revised to meet current compliance requirements. Recognized by the [place] [employer] Gastrointestinal [employer] for promoting quality in endoscopy Lobo Little MD ENDOSCOPY PROCEDURES Final Re sult from Last 3 Months or Most Recently Relevant to Health Maintenance Insurance [facility] SPECIAL CONTRACTS PAYOR Member Subscriber Plan / Payer (Ef fective 2025-Present) Name:Tatiana Baron Relation to Subscriber:Self Name:Tatiana Baron Payer ID:[id number] Type:MANAGED CARE OTHER Address: [address] [facility] BUREAU OF DISABILITY Advance Directives For more information, please contact: [phone] * Full Code (Latest Code Status on File) Date Activated Date Inactivated Comments 06/14/2020 9:49 AM 06/14/2020 4:08 PM * Full Code Date Activated Date Inactivated Comments 06/14/2020 9:49 AM 06/14/2020 9:49 AM Care Teams Plating Engineer Relationship Specialty Start Date End Date Anastasia Rodríguez MD [address] [place] [id number] PCP - General Family Medicine 02/08/25 Marco A Carrion PA [address] [facility] [place] [address] [place] [address] Physician Drilling Superintendent Orthopedic Surgery 02/18/25
[2025-07-03 14:24] VITALS: BP 130/81; PULSE 91; RESP 15; TEMP 36.4; O2SAT 99
[2025-07-03 15:49] LABS: Hematocrit 39.3 % (37.0-47.0); Hemoglobin 13.1 g/dL (12.0-15.0); Immature Granulocyte Percent A 0.2 % (0-0.5); Lymphocytes Absolute Auto 2.60 K/mm3 (0.9-3.2); Mean Corpuscular HGB Conc 33.3 g/dl (32-36); Mean Corpuscular Hemoglobin 31.9 pg (26-34); Mean Corpuscular Volume 95.6 fl (80-100); Nucleated Red Blood Cells Absolute Auto 0.000 K/mm3 (0.0-0.012); Nucleated Red Blood Cells Perc 0.0 % (0.0-0.2); Platelet Count Result 317 k/mm3 (150-375); Red Blood Count 4.11 M/mm3 (4.2-5.4); White Blood Count 6.3 K/mm3 (4.5-10.0)
--- OUTSIDE RECORDS SUMMARY | 2025-07-03 15:59 | XMS_ITS | Clinical Summary ---
Author Organization [facility] Care Team Providers Care Medical Staff Physician Name Role Phone Unavailable Primary Care Provider [...]
--- OUTSIDE RECORDS SUMMARY | 2025-07-03 15:59 | XMS_ITS | Clinical Summary ---
Author Organization [facility] Address [address] [place] [address] Care Team Providers Care Line Dancer Name Role Phone Lizbeth Boo Primary Care Provider [phone] Jeff Garcia MD Unavailable [phone] Kenney Martinez RACETRACK STEWARD Unavailable [phone] Tio Rutledge DO Unavailable Allergies Active Allergy [...] Sex Assigned at Female 05/24/2025 1:10 PM ORTHO NURSE Legal Sex Female 8:28 PM CDT Gender [...] Most Recently Relevant to Health Maintenance Insurance [employer] Member Subscriber Plan / Payer (Ef fective 2019-Present) Name:Tod Tatiana Kaye Relation to Subscriber:Self Name:Tod Tatiana Kaye Payer ID:[id number] (NAIC) Group ID:Not on file Type:Not on file Address: [place] [phone] Advance Directives Documents on File Type Date Recorded Patient Contact Lens Fitter Expl anation Power of Rotary Drum Dyer 09/14/2019 9:01 AM Florentino Mock, HCA- significatn Other; Bebe Edwards, 1st alternate [facility]CA-other; Advance Directives and Living Will 09/14/2019 8:57 AM [place]CLARATION Healthcare Agents on File Name Relationship Healthcare Agent Relationship Communication Noel (POAH) Nish Significant other Health Care Agen t Bebe Edwards Parents First Alterna te Health Care Agent Care Teams Line Dancer Relationship Specialty Start Date End Date Lizbeth Boo PA [address] [place] [address] PCP - General PHYSICIAN PLANNING MANAGEMENT IT SPECIALIST 10/13/21 Jeff Garcia MD [address] [place] [address] Consulting Physician INTERVENTIONAL CARDIOLOGY 09/03/19 Kenney Martinez APRN [address] [place] [address] Nurse Practitioner NURSE PRACTITIONER 09/03/19 Tio Rutledge DO [address] [place] [address] INTERNAL MEDICINE 05/02/22
--- OUTSIDE RECORDS SUMMARY | 2025-07-03 15:59 | XMS_ITS | Encounter Summary ---
Author Organization [facility] Address [address] [place] [address] Care Team Providers Care Gas Station Cashier Name Role Phone Lizbeth Boo Primary Care Provider [phone] Lizbeth Boo Primary Care Provider [phone] Lizbeth Boo Unavailable [phone] Jeff Garcia MD Unavailable [phone] Kenney Martinez APRN Unavailable [phone] Tio Rutledeg DO Unavailable Encounter Details Date Type Department Care Team (Late st Contact Info) Description 12/25/2019 AddFleet Message Enc [facility] [address] [place] [address] [address] [place] [address] Fernanda Clements, CLAY MAKER-BC [address] [place] [address] Visit Follow Up Social History Tobacco Use Types Packs/Day Years Used Date Smoking Tobacco: Former Cigarettes Q uit: 2018 Smokeless Tobacco: Never Comments:smokes marijuana Alcohol Use Standard Drinks/Week Comments Not Currently 0 (1 standard drink = 0.6 oz pur e alcohol) occasionally Comments Unknown Sex and Gender Information Value Date Recorded Sex Assigned at Female 05/24/2025 1:10 PM STORE GROUP MANAGER Legal Sex Female 8:28 PM CDT Gender [...] Rule Out 03/03/2021 03/03/2021 05/29/2021 7:41 PM STORE GROUP MANAGER COVID-19 Rule Out 03/03/2021 03/03/2021 07/27/2021 2:08 PM STORE GROUP MANAGER documented as of this encounter Care Teams Gas Station Cashier Relationship Specialty Start Date End Date Lizbeth Boo PA [address] [place] [address] PCP - General PHYSICIAN BUSINESS LIAISON OFFICER 09/03/19 10/12/21 Lizbeth Boo PA [address] [place] [address] PCP - General PHYSICIAN BUSINESS LIAISON OFFICER 10/13/21 Lizbeth Boo PA [address] [place] [address] PHYSICIAN BUSINESS LIAISON OFFICER 10/13/21 05/01/22 Jeff Garcia MD [address] [place] [address] Consulting Physician INTERVENTIONAL CARDIOLOGY 09/03/19 Kenney Martinez APRN [address] [place] [address] Nurse Practitioner NURSE PRACTITIONER 09/03/19 Toi Rutledge DO [address] [facility] [address] [place] [address] INTERNAL MEDICINE 05/02/22 documented as of this encounter
--- OUTSIDE RECORDS SUMMARY | 2025-07-03 15:59 | XMS_ITS | Clinical Summary ---
Author Organization [facility] Medical Office Building [address] Address [address] [place] [address] Care Team Providers Care Chicken Hanger Name Role Phone Anastasia Rodríguez MD Primary Care Provider Marco A Carrion Unavailable [phone] Allergies Active Allergy Reactions Criticality Noted Date [...] 05/24/2020 Assessment & Plan (05/24/2020 1:38 PM HEEL SCORER): Severe constipation for over 1`0 yrs with occ BRB. Never colonoscoped. Diet devoid of fiber so suggested fruit tid, colonoscopy, and on exam today II- III roids. Desires IRC. Will do screening colonoscopy and IRC. Gastroesophageal reflux disease 05/24/2020 Assessment & Plan (05/24/2020 1:39 PM HEEL SCORER): Severe substernal burning to spicy foods getting worse but some relief with pepcid. notye recent onset dysphagia to solids. Will EGD and possibly dil at time of colonoscopy. Encounter for screening colonoscopy 05/24/2020 Overview (05/24/2020): Added automatically from request for surgery [id number] Dysphagia 05/24/2020 Overview (05/24/2020): Added automatically from request for surgery [id number] Other hemorrhoids 05/24/2020 Overview (05/24/2020): Added automatically from request for surgery [id number] Neuroma 02/18/2020 Strain of right hip adductor muscle 01/08/2020 Greater trochanteric bursitis of right hip 12/24 BARRIENTOS (dyspnea on exertion) 09/07/2019 Encounters Date Type Department Care Team Description 05/20/2025 10:29 AM HEEL SCORER - 05/20/2025 11:59 PM HEEL SCORER Hospital Encounter [facility] [address] [place] [address] Encounter for disability determination Discharge Disposition: Discharge to home or self care 05/19/2025 10:45 AM HEEL SCORER Office Visit [facility] [address] [place] [phone] Marco A Carrion PA Aftercare following surgery of the musculoskeletal system (Primary Dx); S/P rotator cuff repair 04/05/2025 10:15 AM CDT Office Visit [facility] [address] [place] [phone] Marco A Carrion PA Aftercare following surgery of the musculoskeletal system (Primary Dx); S/P rotator cuff repair from Last 3 Months Surgical History Surgery Date Site/Laterality Comments SECTION section CARPAL TUNNEL RELEASE TUBAL LIGATION 07/08/1992 - 07/07/1993 [facility] CYST REMOVAL 07/08/2012 - 07/07/2013 PYLENODAL CYST REMOVAL-[place] CARDIAC SURGERY 07/08/2019 - 07/07/2020 HEART CATH- [facility] COLONOSCOPY 06/14/2020 1st UPPER GASTROINTESTINAL ENDOSCOPY [...] on file Legal Sex Female 1:25 AM HEEL SCORER Gender Identity Not on file Sexual Orientation Not on file Last Filed Vital Signs Vital Sign Reading Time Taken Comments Blood Pressure 118/88 05/19/2025 10:55 AM HEEL SCORER Pulse 89 05/19/2025 10:55 AM HEEL SCORER Temperature 36.2 C (97.2 F) 02/18/2025 1:59 PM CDT Respiratory Rate 16 02/18/2025 1:59 PM CDT Oxygen Saturation 99% 02/18/2025 1:59 PM CDT Inhaled Oxygen Concentration - - Weight 59.4 kg (131 lb) 05/19/2025 10:55 AM HEEL SCORER Height 165.1 cm (5' 5) 05/19/2025 10:55 AM HEEL SCORER Body Mass Index 21.8 05/19/2025 10:55 AM HEEL SCORER Plan of Treatment Health Maintenance Due Date [...] this topic Medical Devices Implanted Type Area Surgical Nurse Practitioner Device Identifier Shelf Expiration Date Model / Serial / Lot [employer] Suture [place] Knotless Fibertak 2.6mm Ar-3641sp - [id number] Implanted:Qty: 1 on 02/18/2025 by Robi Liao MD at [facility] Left: Shoulder [employer] 11/04/2029 AR-3641SP / / [id number] [employer] Corkscrew L4.75 Mr Tape Full Thread [place] Suture Biocomposite Sterile Disposable Latex Free [id number] - [id number] Implanted:Qty: 1 on 02/18/2025 by Robi Liao MD at [facility] Left: Shoulder [employer] [id number] 06/06/2028 AR-1927BC T-475 / / [id number] [employer] Swivelock C 4.75mm 19.1mm Closed Eyelet Vent [place] Suture Ar-2324bcc - [id number] Implanted:Qty: 1 on 02/18/2025 by Robi Liao MD at [facility] Left: Shoulder [employer] 09/04/2028 AR-2324BC C / / [id number] Procedures Procedure Name Priority Date/Time Associated Diagnosis Comments XR HIP RIGHT W PELVIS 2 OR 3 VIEWS Schedule Routine, Read Routine (OP Routine) 05/20/2025 10:43 AM HEEL SCORER Encounter for disability determination COLONOSCOPY 06/14/2020 10:33 AM HEEL SCORER from Last 3 Months or Most Recently Relevant to Health Maintenance Results * XR Hip Right W Pelvis 2 or 3 Views (05/20/2025 10:43 AM HEEL SCORER) Anatomical Region Laterality Modality Lower Extremities, Hip, Pelvis Right C omputed Radiography 05/20/2025 2:41 PM HEEL SCORER Impressions 05/20/2025 2:41 PM HEEL SCORER 1. No acute osseous abnormality of the pelvis]. 2. Minimal arthritic change. Electronically signed by: Raphael Patterson M.D. Narrative 05/20/2025 2:41 PM HEEL SCORER EXAM DESCRIPTION: XR HIP RIGHT 2 OR [...] Final Result * COLONOSCOPY (06/14/2020 10:33 AM HEEL SCORER) Anatomical Region Laterality Modality Other Narrative Procedure Note Lobo Little MD - 06/14/2020 10:33 AM CST [facility] Patient Name: Tatiana Baron Procedure Date: 06/14/2020 10:33 AM Date of : 1965 Admit Type: Outpatient Age: 54 Gender: Female Attending MD: Lobo Little M.D. Room: [facility] ENDOSCOPY ROOM 2 Note Status: Finalized [...] scope was passed under direct vision.The Colonoscope [id number] was introducedthrough the anus and advanced to [...] 10:33 AM Procedure Code(s): --- Professional --- 16271, Colonoscopy, flexible; with removal of tumor(s), polyp(s), or other lesion(s) by hot biopsy forceps Diagnosis Code(s): --- Professional --- K62.1, Rectal polyp K64.9, Unspecified hemorrhoids Z12.11, Encounter for screening for malignant neoplasm of colon CPT copyright 2017 [place] [employer]. All rights reserved. The codes documented in this report are preliminary and upon assembler sandal parts reviewmay be revised to meet current compliance requirements. Recognized by the [place] [employer] for promoting quality in endoscopy Lobo Little MD ENDOSCOPY PROCEDURES Final Re sult from Last 3 Months or Most Recently Relevant to Health Maintenance Insurance [facility] SPECIAL CONTRACTS PAYOR Member Subscriber Plan / Payer (Ef fective 2025-Present) Name:Tatiana Baron Relation to Subscriber:Self Name:Tatiana Baron Payer ID:[id number] Type:MANAGED CARE OTHER Address: [address] [facility] BUREAU OF DISABILITY Advance Directives For more information, please contact: [phone] * Full Code (Latest Code Status on File) Date Activated Date Inactivated Comments 06/14/2020 9:49 AM 06/14/2020 4:08 PM * Full Code Date Activated Date Inactivated Comments 06/14/2020 9:49 AM 06/14/2020 9:49 AM Care Teams Chicken Hanger Relationship Specialty Start Date End Date Anastasia Rodríguez MD [address] [place] [address] PCP - General Family Medicine 02/08/25 Marco A Carrion PA [address] [facility] [address] [place] [address] [place] [address] Physician Psychiatric Clinician Orthopedic Surgery 02/18/25
[2025-07-03 16:00] LABS: Add Urine Microscopic? YES; Appearance Urine Clear (Clear); Glucose Urine UA Negative (Negative); Leukocyte Esterase Ur Negative LEU/UL (Negative); Nitrate Urine Negative (Negative); Non Pathogenic Casts 0-2; Specific Grav Ur 1.020 (1.001-1.035)
[2025-07-03 16:01] LABS: Alanine Aminotransferase 19 U/L (6-35); Albumin Level 4.2 g/dL (3.5-5.1); Alkaline Phosphatase 130 U/L (38-126); Anion Gap 4 mmol/L (4-12); Aspartate Amino Transferase 26 U/L (14-36); Bilirubin,Total 0.4 mg/dL (0.2-1.3); Blood Urea Nitrogen 16 mg/dL (7-17); Calcium 9.8 mg/dL (8.4-10.2); Carbon Dioxide 29 mmol/L (22-30); Chloride 109 mmol/L (98-107); Estimated CRCL calculation 54 ml/min; Estimated Glomerular Filt Rate > 60; Glucose 90 mg/dL (65-110); Lipase 78 U/L (23-300); Potassium 3.7 mmol/L (3.4-5.0); Sodium 142 mmol/L (137-145); Total Protein 7.6 g/dL (6.3-8.2)
--- NOTE | 2025-07-03 16:08 | ED.ABDPAIN ---
HPI - Abdominal Pain General Chief Complaint: Abdominal Pain Stated Complaint: ABD PAIN Time Seen by Provider: 07/03/25 15:49 Source: patient Mode of arrival: ambulatory Limitations: no limitations History of Present Illness HPI narrative: 59 years old white female came to the ED complaining of watery diarrhea since November 2024 on average 1-twice a day, explosive, large amount. Was seen by paymaster of purses 9 days ago and schedule for colonoscopy July 16. Patient also complaining of lump like feeling at the anal area for a while, was seen by somebody 9 days ago and was told ingrowing hair. Patient would like me to look at it today. Denies any increase in pain or size, fever, chills, nausea, vomiting. History of GERD, anxiety, depression Related Data Home Medications ?Medication ?Instructions ?Recorded ?Confirmed ?Last Taken ?Type hydroxyzine pamoate 25 mg capsule 25 mg PO PRN 04/26/25 04/26/25 Unknown History nitrofurantoin 100 mg PO DAILY 04/26/25 04/26/25 Unknown History monohydrate/macrocrystals 100 mg capsule omeprazole 40 mg capsule,delayed 40 mg PO DAILY 04/26/25 04/26/25 Unknown History release oxycodone-acetaminophen 5 mg-325 1 tablet PO Q6-8H 04/26/25 04/26/25 Unknown History mg tablet Allergies Allergy/AdvReac Type Severity Reaction Status Date / Time cephalexin (From Keflex) Allergy Intermediate Hives Verified 07/03/25 14:23 amoxicillin (From Augmentin) Allergy Hives Verified 07/03/25 14:23 azithromycin (From Zithromax) Allergy Hives Verified 07/03/25 14:23 clavulanic acid (From Allergy Hives Verified 07/03/25 14:23 Augmentin) naproxen Allergy Hives Verified 07/03/25 14:23 Review of Systems Review of Systems: All systems reviewed & are unremarkable except as noted in HPI and below PMFSH Social History Social History Social History: smokes marijuana on a regular basis Smoking status: Former smoker Substance use: current Substance use type: marijuana Exam Narrative: General appearance: Well-developed, well-nourished Skin: Normal color Head: Normocephalic, nontraumatic Eyes: Clear conjunctiva ENT: Oropharynx normal, ears normal, nose normal Neck: Supple, nontender Chest and respiratory: Airway patent, no respiratory distress, no accessory muscle use Heart: Regular rate/rhythm Abdomen: Soft, nontender, no organomegaly, anal exam showing roughly 1 cm indurated skin at the perianal area, not red, slightly tender with pressure, not warm, no fluctuation Vascular: Normal peripheral pulses, normal capillary refill. Musculoskeletal: Normal range of motion, nontender back Neurologic: Alert and oriented ?3, [place] [employer] is normal as tested, no gross motor deficit Course Vital Signs Vital signs: Vital Signs Temperature 36.4 C L 07/03/25 14:24 Pulse Rate 91 07/03/25 14:24 Respiratory Rate 15 07/03/25 14:24 Blood Pressure 130/81 07/03/25 14:24 Pulse Oximetry 99 07/03/25 14:24 Temperature 36.4 C L 07/03/25 14:24 Pulse Rate 91 07/03/25 14:24 Respiratory Rate 15 07/03/25 14:24 Blood Pressure 130/81 07/03/25 14:24 Pulse Oximetry 99 07/03/25 14:24 [facility] Narrative Medical decision making narrative: Patient came with diarrhea for the last 7 months Vital signs stable Physical examination: Hyperactive bowel sounds, a cyst like lesion at the perianal area Differential diagnosis electrolyte imbalance, dehydration, colitis, diverticulitis, perianal cyst Blood workup today includes CBC, CMP, lipase showed insignificant abnormality Urinalysis showed insignificant abnormality CT abdomen and pelvis with IV contrast showed no significant finding to explain patient condition Diagnosis chronic diarrhea, perianal cyst Discharged on clindamycin, The pt was discharged to home.the pt,s condition upon discharge was fair,education was provided to the pt in reference to the final impression,discharge study results,treatment,prognosis and need for follow up . Differential Diagnosis Differential Diagnosis: As above Lab Data [facility] Lab Attestation statement: I personally reviewed the patient's lab results. 07/03/25 15:43 07/03/25 15:43 Labs: Lab Results 07/03/25 Range/Units 15:43 WBC 6.3 (4.5-10.0) K/mm3 RBC 4.11 L (4.2-5.4) M/mm3 Hgb 13.1 (12.0-15.0) g/dL Hct 39.3 (37.0-47.0) % MCV 95.6 (80-100) fl MCH 31.9 (26-34) pg MCHC 33.3 (32-36) g/dl RDW 12.7 (11.5-14.5) % Plt Count 317 (150-375) k/mm3 MPV 9.0 (7.4-10.4) fl Immature Gran % (Auto) 0.2 (0-0.5) % Neut % (Auto) 46.7 (45.5-73.1) % Lymph % (Auto) 41.2 (18.3-44.2) % Boyle % (Auto) 10.3 H (2.6-8.5) % Eos % (Auto) 1.3 (0-4.4) % Baso % (Auto) 0.3 (0.2-1.2) % Lymph # (Auto) 2.60 (0.9-3.2) K/mm3 Boyle # (Auto) 0.7 H (0.1-0.6) K/mm3 Eos # (Auto) 0.1 (0-0.3) K/mm3 Baso # (Auto) 0.0 (0.0-0.1) K/mm3 Abs Immat Gran (auto) 0.01 (0.00-0.031) K/mm3 Absolute Neuts (auto) 3.0 (1.3-6.7) K/mm3 Absolute Nucleated RBC 0.000 (0.0-0.012) K/mm3 Nucleated RBC % 0.0 (0.0-0.2) % Sodium 142 (137-145) mmol/L Potassium 3.7 (3.4-5.0) mmol/L Chloride 109 H (98-107) mmol/L Carbon Dioxide 29 (22-30) mmol/L Anion Gap 4 (4-12) mmol/L BUN 16 (7-17) mg/dL Creatinine 0.85 (0.7-1.0) mg/dL Estim Creat Clear Calc 54 ml/min Estimated GFR > 60 (59 - ) Glucose 90 (65-110) mg/dL Calcium 9.8 (8.4-10.2) mg/dL Total Bilirubin 0.4 (0.2-1.3) mg/dL AST 26 (14-36) U/L ALT 19 (6-35) U/L Alkaline Phosphatase 130 H (38-126) U/L Total Protein 7.6 (6.3-8.2) g/dL Albumin 4.2 (3.5-5.1) g/dL Lipase 78 (23-300) U/L Urine Color Yellow (Yellow) Urine Appearance Clear (Clear) Urine pH 5.5 (5.0-9.0) Ur Specific [place] 1.020 (1.001-1.035) Urine Protein Negative (Negative) mg/dL Urine Glucose (UA) Negative (Negative) mg/dL Urine Ketones Negative (Negative) mg/dL Ur Blood (Man) Trace (Negative) Urine Nitrate Negative (Negative) Urine Bilirubin Negative (Negative) Urine Urobilinogen 0.2 (<2.0) mg/dL Leukocyte Esterase Rfl Negative (Negative) CLAY/UL Urine RBC 3-5 H (0-2) /hpf Urine WBC 0-5 (0-3) /hpf Ur Squamous Epith Cells Occasional (Few) /hpf Urine Bacteria None seen /hpf Urine Casts 0-2 Imaging Data Radiologist's impression: ITS Impressions Abdomen/Pelvis CT 07/03/25 17:01 IMPRESSION: 1. 1 cm size left renal calculus with mild left hydronephrosis. No hydroureter. 2. Stable left adrenal adenoma 1 cm in size. 3. Calcific changes of aortic valve cusps still of some degree of aortic stenosis. Please correlate with echocardiographic findings. 4. Possible noncalcified gallstone in the gallbladder. Correlation with ultrasound gallbladder is suggested. Critical Care Time Critical Care Time Critical Care Time: No Discharge Plan Discharge Clinical Impression: Chronic diarrhea, Cyst of perianal area Patient Disposition: Home Condition: Stable Instructions: Antibiotic Form, Chronic Diarrhea (DC), Cyst (ED) Additional Instructions: Return if symptoms are worsening , call your family physician for appointment, take Tylenol as as needed for aches and pain, continue home medications. Patient Language: Cymraes Prescriptions: New clindamycin HCl [Cleocin HCl] 300 mg capsule 300 mg PO Q6H 7 Days Qty: 28 0RF No Action omeprazole 40 mg capsule,delayed release(DR/EC) 40 mg PO DAILY oxycodone-acetaminophen 5-325 mg tablet 1 tablet PO Q6-8H nitrofurantoin monohyd/m-cryst 100 mg capsule 100 mg PO DAILY hydroxyzine pamoate 25 mg capsule 25 mg PO PRN Follow-up/Referrals: Anne,Anastasia Paulino MD [Primary Care Provider, Unknown] Jimy Deleon MD [Physician, General Surgery] - 07/05/25
[2025-07-03] MEDS: SODIUM CHLORIDE 0.9% IV 1,000 ML 999 ML IV CONT (16:22)
== END 2025-07-03 18:32 | disposition home or self-care (01) ==
PROVIDERS: Emergency Medicine; Emergency Provider Emergency Medicine; PCP Family Medicine
DX: K52.9 Noninfective gastroenteritis and colitis, unspecified (principal); K62.89 Other specified diseases of anus and rectum; Z87.891 Personal history of nicotine dependence; N13.2 Hydronephrosis with renal and ureteral calculous obstruction; D35.02 Benign neoplasm of left adrenal gland; R93.2 Abnormal findings on diagnostic imaging of liver and biliary tract
CPT/HCPCS: 36415; 74177; 80053; 81001; 83690; 85025; 96360; 99284; J7030; Q9967